=== PATIENT | male | born 1965 | race Caucasian/White ===

== ENCOUNTER 2021-10-24 08:28 | Inpatient (IN) | payer OTHER, SELFPAY ==
[2021-10-24] VITALS (9 sets, daily range): BP systolic 109–147; BP diastolic 56–81; PULSE 71–104; RESP 16–20; TEMP 36.3–36.8; O2SAT 95–100; BMI 24.0
--- NOTE | ~2021-10-24 | XR_ITS ---
EXAMINATION: XR CHEST CLINICAL INFORMATION: Shortness of breath and altered mental status COMPARISON: None TECHNIQUE: Frontal view of the chest was obtained. FINDINGS: The heart and pulmonary vessels appear normal. There is no evidence of CHF. No infiltrates or effusions are seen. Multiple musculoskeletal abnormalities are seen including plate and screw devices on third through fifth anterolateral right ribs. There may be chronic rib fractures on the left. Bilateral clavicular fractures are seen with nonunion on the left. Central sclerotic area in right humeral head may be an old infarct. XR/XR chest 1V IMPRESSION: No acute intrathoracic disease. Musculoskeletal findings as above.
--- NOTE | ~2021-10-24 | CT_ITS ---
EXAMINATION: CT HEAD WITHOUT CONTRAST (STROKE PROTOCOL) CLINICAL INFORMATION: Stroke protocol. Altered mental status COMPARISON: October 04, 2008 TECHNIQUE: Contiguous axial imaging was performed from the skull base to vertex without intravenous administration of contrast. This CT examination was performed using dose optimization techniques as appropriate, variously including the following: *Automated exposure control *Adjustment of mA and/or kV according to patient size (this includes techniques or standardized protocols for targeted exams where dose is matched to indication/reason for exam; i.e. extremities or head) *Use of iterative reconstruction technique DLP: 784 mGy-cm FINDINGS: There is a region of diminished density with some loss of garvin-white matter interface in the watershed region between the left parietal and occipital lobes. There also appears to be some petechial hemorrhage present with some mass effect effacing the adjacent sulci but with no intraventricular blood or midline structure shift. No effacement of ventricles identified. There was some prominence of the posterior horn of the left lateral ventricle on study of October 04, 2008. . . There is a nondisplaced left parietal skull fracture without adjacent scalp edema and therefore likely remote or chronic. No abnormal extra-axial fluid collection appreciated. There is no pneumocephalus or orbital emphysema. The visualized sinuses and middle ears and mastoid air cells show no significant mucosal thickening. There are no air-fluid levels. CT/CT head for stroke IMPRESSION: Findings consistent with evolving left posterior parietal and occipital infarct with mild mass effect and petechial hemorrhage being present. Nondisplaced remote fracture of the left parietal skull. This critical result was discussed with Dr. Hunt at 8:59 AM hours on October 24, 2021. It was ascertained that the content and urgency of the report was understood at the time of direct communication.
--- NOTE | 2021-10-24 08:33 | ECG_ITS ---
Test Reason : STROKE Blood Pressure : / mmHG Vent. Rate : 075 BPM Atrial Rate : 075 BPM P-R Int : 166 ms QRS Dur : 066 ms QT Int : 394 ms P-R-T Axes : 066 -43 -10 degrees QTc Int : 439 ms Artifact in tracing Normal sinus rhythm Left axis deviation Inferior infarct (cited on or before 04-OCT-2008) Abnormal ECG When compared with ECG of 04-OCT-2008 14:03, No significant change was found Referred By: Yessenia Hunt Electronically Signed By:ESMER BARRERA
[2021-10-24 08:39] LABS: Glucose, Whole Blood 150 mg/dL (60-115)
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
[2021-10-24] MEDS: levETIRAcetam in NaCl (iso-os) 500 MG/100 ML PIGGYBACK 400 MG IV (09:00)
[2021-10-24 09:14] LABS: MANUAL DIFF FLAG NO
[2021-10-24 09:16] LABS: Basophils Percent Auto 0.2 % (0-2); Eosinophils Percent Auto 0.1 % (0-4); Hematocrit 40.5 % (42.0-52.0); Hemoglobin 13.1 g/dl (14.0-18.0); Imm Gran Abs Auto 0.08 X10*3/uL (0.00-0.03); Imm Gran Pct Auto 0.4 % (0.0-0.4); Lymphocytes Absolute Auto 1.1 X10*3/uL (1.2-4.9); Lymphocytes Percent Auto 5.8 % (20-40); Mean Corpuscular HGB Conc 32.3 g/dl (31.0-36.0); Mean Corpuscular Hemoglobin 28.6 pg (27.0-33.0); Mean Corpuscular Volume 88.4 fL (80.0-98.0); Mean Platelet Volume 11.1 fL (9.4-12.4); Monocytes Absolute Auto 0.8 X10*3/uL (0.1-1.2); Monocytes Percent Auto 4.3 % (2-11); Neutrophils Absolute Auto 16.4 x10*3/uL (2.0-8.3); Neutrophils Percent Auto 89.2 % (45-73); Platelet Count 333 X10*3/uL (160-400); Red Blood Count 4.58 X10*6/uL (4.60-5.80); Red Cell Distribution Width 13.1 % (11.0-16.0); White Blood Count 18.4 X10*3/uL (4.8-10.8)
[2021-10-24 09:17] LABS: INTERNATIONAL NORM RATIO 0.9 (0.9-1.1); Prothrombin Time 10.4 SEC (9.9-13.0)
[2021-10-24 09:19] LABS: Ammonia 24 umol/L (13-55)
[2021-10-24 09:19] LABS: Lactic Acid 1.8 mmol/L (0.5-2.0)
[2021-10-24 09:20] LABS: Partial Thromboplastin Time 28.6 SEC (24.1-38.0)
[2021-10-24 09:26] LABS: VBG Base Excess -0.6 mmol/L; VBG HCO3 24 mmol/L (22-26); VBG pCO2 40 mmHg; VBG pH 7.38 (7.32-7.43); VBG pO2 36 mmHg
[2021-10-24 09:26] LABS: Venous Blood Gas Refer to POC result
[2021-10-24 09:29] LABS: Alanine Aminotransferase 13 U/L (0-40); Albumin Level 3.9 g/dL (3.5-5.0); Alkaline Phosphatase 62 U/L (39-117); Anion Gap 20 (12-20); Aspartate Amino Transferase 27 U/L (5-37); Bilirubin Direct 0.2 mg/dL (0.0-0.5); Bilirubin Total 0.5 mg/dL (0.0-1.0); Blood Urea Nitrogen 67 mg/dL (9-16); Carbon Dioxide 23 mmol/L (22-29); Chloride 98 mmol/L (96-108); Creatinine Clr Calc Pharmacy 22.4; Estimated Glomerular Filt Rate 19; Glucose Random 170 mg/dL (60-115); Lipase 23 U/L (8-78); Magnesium 2.1 mg/dL (1.6-2.6); Potassium 5.4 mmol/L (3.3-5.1); Sodium 136 mmol/L (135-145); Total Protein 7.2 g/dL (6.5-8.0)
[2021-10-24 09:50] LABS: Troponin-I High Sensitivity 6.8 ng/L (<3.5-35.0)
[2021-10-24 09:56] LABS: COVID-19 Test Negative (Negative)
--- NOTE | 2021-10-24 11:40 | PHA.MEDREC ---
Pharmacy Consult ? Medication Reconciliation Pharmacy has completed the medication reconciliation. List from care facility. No remarkable issues. Leonides QuinonesD
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
--- NOTE | 2021-10-24 15:29 | PC.NURSE ---
report called to overflow
[2021-10-24] MEDS: 0.9 % Sodium Chloride Flush 3 ML SYRINGE IVFLUSH ×2 (15:59→23:29)
--- NOTE | 2021-10-24 16:05 | PC.NURSE ---
pt alert, able to make needs known. LS clear, vss, satting well on room air, pt resting in bed with no signs of distress
[2021-10-24 16:06] LABS: Appearance Urine CLEAR; Color Urine YELLOW; Glucose Urine UA NEG (NEG); Leukocyte Esterase Urine NEG (NEG); Nitrite Urine NEG (NEG); Urine Blood NEG (NEG); Urine Ketones NEG (NEG); Urine Protein NEG (NEG-TRACE)
--- NOTE | 2021-10-24 16:18 | PC.NURSE ---
patient was change into hospital attire ,patient was assisted in using the urinal ,patient void 600 of clear yellow urine .
[2021-10-24] MEDS: Dextrose 50 % 25 GM/50 ML SYRINGE IVPUSH (17:12)
[2021-10-24 17:13] LABS: Glucose, Whole Blood 32 mg/dL (60-115)
[2021-10-24 17:33] LABS: Glucose, Whole Blood 161 mg/dL (60-115)
[2021-10-24 19:53] LABS: Glucose, Whole Blood 93 mg/dL (60-115)
[2021-10-24] MEDS: Dextrose 5 % and 0.45 % NaCl 1,000 ML 42 ML IVCONT (20:30)
[2021-10-24] MEDS: carvediloL 12.5 MG TABLET PO (20:33)
[2021-10-24] MEDS: hydrALAZINE HCl 25 MG TABLET PO (20:33)
[2021-10-24] MEDS: levETIRAcetam Oral Soln 500 MG/5 ML PO (20:33)
--- NOTE | 2021-10-24 21:37 | PC.NURSE ---
Pt seen asleep on bed but awaken easily with voice and was alert most of the time after, can only verbalized yes for every question, deneis any pain, noted with left arm weakness and right side face drooping, was able to tolerate applesauce, I called pharmacy regarding meds to be crushed and said
--- NOTE | 2021-10-24 21:40 | PC.NURSE ---
Pt seen on bed alseep at first and awaken easily with voice, mostly alert by then, can only verbalized 'yes' with every questions asked, unable to make needs known, noted with right face droop and left arm weakness, denies any pain, was able to tolerate apple sauce, I called pharmacy for meds needed to be crushed and said not to crush Myfortic and Prograf, rest of meds t oleratd with apple sauce, POC=93, pt still on NPO with event of POC=32 at 1700, Dr. Rivas was updated, IVF D50.45% NSS was started, to rechecked POC every 4 hr x2 later of the night, report called to [facility] to PAM Pandya, transport to room 474 at 2145
[2021-10-25] VITALS (7 sets, daily range): BP systolic 112–124; BP diastolic 53–62; PULSE 62–78; RESP 18–20; TEMP 36.3–36.8; O2SAT 96–100
[2021-10-25 07:28] LABS: Glucose, Whole Blood 63 mg/dL (60-115)
[2021-10-25 07:28] LABS: Cholesterol 131 mg/dL; HDL Cholesterol 47 mg/dL; LDL Cholesterol Calculated 73 mg/dl; Triglycerides 56 mg/dL
[2021-10-25] MEDS: Glucose Gel 15 GM GEL..GRAM. PO ×3 (07:55→20:21)
[2021-10-25] MEDS: Furosemide 40 MG TABLET PO (07:57)
[2021-10-25] MEDS: levETIRAcetam Oral Soln 500 MG/5 ML PO ×2 (07:57→20:27)
[2021-10-25] MEDS: hydrALAZINE HCl 25 MG TABLET PO ×3 (07:57→20:44)
[2021-10-25] MEDS: carvediloL 12.5 MG TABLET PO ×2 (07:57→20:44)
[2021-10-25] MEDS: Aspirin Enteric Coated 81 MG TABLET.DR PO (07:57)
[2021-10-25 08:19] LABS: Glucose, Whole Blood 90 mg/dL (60-115)
--- NOTE | 2021-10-25 09:04 | MHC.CM.PN ---
Patient appears confused; CM spoke with Son/Zachary at [phone]. Goal is to return to [facility] to complete STR that will then likely become LTC. CM has initiated and will follow for dc planning. Patient has received Covid vax X3.
[2021-10-25 11:10] LABS: Glucose, Whole Blood 211 mg/dL (60-115)
--- NOTE | 2021-10-25 11:36 | MHC.SL.SWA ---
Speech Pathologist Impression: Oral phase dysphagia; Severe expressive aphasia. Risk of Aspiration Due to: Neurological Condition Dysphasia Diet Status: Downgrade Liquid Consistency and Strategies for Safe Swallow: Liquid Intake Recommendation: Thin Liquid Intake Strategies: Small Sips Solid Food Consistency: Dietary Recommendations: Chopped/Advanced (NDD3) Additional Modifications to Solid Foods: No clinical signs of aspiration with PO trials. Slow, prolonged oral phase secondary to oral weakness. Recommend CHOPPED/ADVANCED solids (NDD3) and THIN liquids with pills WHOLE in PUREE. Patient is encouraged to feed himself, but does require 1:1 assistance for all PO intake. Aspiration precautions apply given hx stroke. Additionally, patient presents with severe expressive aphasia. Recommend continue speech therapy daily M-F during inpatient stay and at next level of care. BUCKET WASH OPERATOR will continue to follow. Oral Medication Intake: Whole with Puree Please contact the pharmacy regarding appropriate crushable or liquid drug formulations that are available whenever modified delivery is recommended. Compensatory Strategies and Precautions to be Taken for Safe Swallow: Sitting Upright (90 deg) Small Bites and Sips Alternate Liquids/Solids Rate of Ingestion Change Oral Check Avoid Specific Foods Supervision While Eating and Drinking for Safe Swallow: Total Assistance (1:1) Foods to Avoid: Tough, difficult to chew foods Swallowing Recommended Treatments: Compens. Strategy Educat. Recommendation for Speech: Outpatient Speech Therapy Inpatient Speech Therapy Speech Therapy through Rehab Facility Comment: Recommend ST for aphasia after d/c. Frequency/Duration: Daily M-F Key Person Clinican/Clinical Fellow: No Supervisory Statement: I have reviewed and agree with the student/clinical fellow's documentation: N/A Speech Language Pathologist: Reba Hollingsworth M.A., CCC-BUCKET WASH OPERATOR
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
[2021-10-25 12:04] LABS: Anion Gap 11 (12-20); Blood Urea Nitrogen 60 mg/dL (9-16); Calcium 9.5 mg/dL (8.4-10.2); Carbon Dioxide 27 mmol/L (22-29); Chloride 103 mmol/L (96-108); Creatinine Clr Calc Pharmacy 23.4; Estimated Glomerular Filt Rate 20; Glucose Random 69 mg/dL (60-115); Potassium 4.4 mmol/L (3.3-5.1); Sodium 137 mmol/L (135-145)
[2021-10-25] MEDS: Tacrolimus 1 MG CAPSULE 2 MG PO ×2 (12:28→20:28)
[2021-10-25] MEDS: Mycophenolate Sodium 180 MG TABLET.DR 540 MG PO ×2 (12:28→20:27)
[2021-10-25] MEDS: Insulin Glargine,Hum.rec.anlog 100 UNIT/ML 10 ML VIAL 10 UNIT SUBCUT (12:29)
[2021-10-25] MEDS: Insulin Lispro 100 UNIT/ML 3 ML VIAL SUBCUT ×2 (12:29→17:06)
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
[2021-10-25] MEDS: 0.9 % Sodium Chloride Flush 3 ML SYRINGE IVFLUSH (15:47)
[2021-10-25 16:03] LABS: Glucose, Whole Blood 181 mg/dL (60-115)
--- NOTE | 2021-10-25 16:09 | PM.CNNEP ---
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 Baseline creatinine of 2.4-2.8 mg/dL maintained on a regimen of immunosuppression that consists of mycophenolate and tacrolimus, history of diabetic nephropathy status post 2 kidney transplants in the past and a regimen that includes tacrolimus and mycophenolate complex history of multiple medical problems in the past including epidural subdural hemorrhage COPD/emphysema moderate KAREN not on CPAP CAD status post RCA PHUONG back in 2007 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 COVID positivity in June 2021 hypothyroidism hypertension hyperlipidemia hyperparathyroidism status post parathyroidectomy back in 2006 recent history of cerebrovascular accident he was recently discharged from [facility] on October 08 after hospitalization for cerebrovascular accident at the time he presented with a left upper extremity weakness CT imaging revealed bilateral perianal and left occipital stroke compared to previous imaging in 2018, subsequently he had an episode of seizure on September 25 treated with Keppra, at that time neurology on board was concerned for embolic source of infarcts however a TTE x2 and a MARLON did not reveal any cardiac embolic source, patient has some degree of encephalopathic changes his MRI was suboptimal showing multiple strokes, he was discharged home on antiseizure Keppra 500 mg twice a day baby aspirin and a statin, during the time of hospitalization he did have a mild JEWEL creatinine as high as 3.6 mg/dL on discharge from the hospital his creatinine was down to 2.8 mg/dL. His immunosuppression levels tacrolimus were erratic as high as 29 unclear if they were real, renal team at [facility] adjusted medications and recommended to continue tacrolimus 2 mg twice a day and mycophenolate 540 mg twice daily. He is now admitted to [facility] where he is being brought up to persistent symptoms of right upper extremity along with aphasia and right sided facial droop. Renal team has been consulted for management of renal transplant medications in the setting of previous 2 renal transplants. Review of Systems Review of Systems pt aphasic at the time of my interview [facility] Past Medical History Medical History (Updated 10/25/21 @ 16:16 by Meng Mckenna MD) Aphasia Cerebral infarct CKD (chronic kidney disease) Encephalopathy End stage renal disease HTN (hypertension) Hyperlipemia Hypothyroid Intracerebral hemorrhage Malignant neuroleptic syndrome Type 1 diabetes Surgical History Surgical History Kidney replaced by transplant Social History Social History Household Members: None Housing: Assisted Living Facility Do you presently have visiting nurse or other home services: No Unable to assess alcohol history related to: Unknown Patient Tobacco Use Status: Tobacco use Unknown Use of substances other than those prescribed or required for medical reasons: Unknown Currently Displaying Signs/Symptoms of Drug Intoxication Withdrawal: No Advance Directives: No Advance Directives Information Provided: No Recently lost weight without trying: Unsure Eating poorly because of decreased appetite: Yes Nutrition Risks: Difficulty chewing, Difficulty swallowing and Poor intake 0-25% >4 days Poor oral hygiene: No service: No Current occupational status: unemployed Meds Allergies Allergy/AdvReac Type Severity Reaction Status Date / Time No Known Allergies Allergy Mild NOT Unverified 03/15/20 16:49 APPLICABLE Active Medications: Current Medications Acetaminophen (Acetaminophen 325 Mg Tablet) 650 mg PO Q6H PRN PRN Reason: Pain, Mild (Pain Scale 1-3) Albuterol Sulfate (Albuterol Sulfate 90 Mcg 8 Gm Inhaler) 2 puff INHALE QID PRN PRN Reason: wheezing Aspirin (Aspirin Enteric Coated 81 Mg Tablet.Dr) 81 mg PO DAILY [facility] Last Admin: 10/25/21 07:57 Dose: 81 mg Documented by: Atorvastatin Calcium (Atorvastatin Calcium 40 Mg Tablet) 40 mg PO BEDTIME [place] Carvedilol (Carvedilol 12.5 Mg Tablet) 12.5 mg PO BID [facility]; Protocol Last Admin: 10/25/21 07:57 Dose: 12.5 mg Documented by: Dextrose (Dextrose 50 % 25 Gm/50 Ml Syringe) 25 gm IVPUSH Q15M PRN; Protocol PRN Reason: per Hypoglycemia Standing Ord. Furosemide (Furosemide 40 Mg Tablet) 40 mg PO DAILY [facility]; Protocol Last Admin: 10/25/21 07:57 Dose: 40 mg Documented by: Glucose (Glucose Gel 15 Gm Gel..Gram.) 15 gm PO Q15M PRN; Protocol PRN Reason: per Hypoglycemia Standing Ord. Last Admin: 10/25/21 07:55 Dose: 15 gm Documented by: Hydralazine HCl (Hydralazine Hcl 25 Mg Tablet) 25 mg PO TID [facility]; Protocol Last Admin: 10/25/21 15:46 Dose: 25 mg Documented by: Dextrose/Sodium Chloride (D51/2ns) 1,000 mls @ 42 mls/hr IVCONT .[id number] [facility] Last Admin: 10/24/21 20:30 Dose: 42 mls/hr Documented by: Insulin Glargine (Insulin Glargine,Hum.Rec.Anlog 100 Unit/Ml 10 Ml Vial) 10 unit SUBCUT DAILY [facility] Last Admin: 10/25/21 12:29 Dose: 10 unit Documented by: Insulin Human Lispro (Insulin Lispro 100 Unit/Ml 3 Ml Vial) 0 unit SUBCUT QIDACHS [facility]; Protocol Last Admin: 10/25/21 12:29 Dose: 4 unit Documented by: Levetiracetam (Levetiracetam Oral Soln 500 Mg/5 Ml) 500 mg PO BID [facility] Last Admin: 10/25/21 07:57 Dose: 500 mg Documented by: Levothyroxine Sodium (Levothyroxine Sodium 75 Mcg Tablet) 75 mcg PO DAILY@0600 [facility] Last Admin: 10/25/21 05:30 Dose: Not Given Documented by: Magnesium Hydroxide (Milk Of Magnesia 30 Ml Oral.Susp) 30 ml PO DAILY PRN PRN Reason: Constipation Melatonin (Melatonin 3 Mg Tablet) 6 mg PO BEDTIME PRN PRN Reason: Insomnia Mycophenolate Sodium (Mycophenolate Sodium 180 Mg Tablet.) 540 mg PO BID [facility] Last Admin: 10/25/21 12:28 Dose: 540 mg Documented by: Ondansetron HCl (Ondansetron Hcl 4 Mg/2 Ml Vial) 4 mg IVPUSH Q8H PRN PRN Reason: Nausea and Vomiting Pharmacy Consult (Consult Rx Perform Med Rec) 1 each MISCELLANE ONCE PRN PRN Reason: Consult order Sodium Chloride (0.9 % Sodium Chloride Flush 3 Ml Syringe) 3 ml IVFLUSH QSHIFT [facility] Last Admin: 10/25/21 15:47 Dose: 3 ml Documented by: Tacrolimus (Tacrolimus 1 Mg Capsule) 2 mg PO BEDTIME [facility] Last Admin: 10/24/21 21:38 Dose: Not Given Documented by: Tacrolimus (Tacrolimus 1 Mg Capsule) 2 mg PO DAILY [facility] Last Admin: 10/25/21 12:28 Dose: 2 mg Documented by: Home Medications Medication Instructions Recorded Confirmed Last Taken Type albuterol sulfate 90 mcg/actuation 2 puff PO QID PRN 10/24/21 10/24/21 Unknown History aerosol inhaler (ProAir HFA) aspirin 81 mg tablet,delayed 81 mg PO DAILY 10/24/21 10/24/21 Unknown History release atorvastatin 40 mg tablet 40 mg PO DAILY 10/24/21 10/24/21 Unknown History carvedilol 12.5 mg tablet 1 tab PO BID 10/24/21 10/24/21 Unknown History furosemide 40 mg tablet 40 mg PO DAILY 10/24/21 10/24/21 Unknown History hydralazine 25 mg tablet 1 tab PO TID 10/24/21 10/24/21 Unknown History insulin glargine 100 unit/mL 21 unit SUBCUT DAILY PRN 10/24/21 10/24/21 Unknown History subcutaneous solution (Lantus U-100 Insulin) insulin lispro 100 unit/mL 1 sliding scale dose SUBCUT 10/24/21 10/24/21 Unknown History subcutaneous solution USEASDIRECTD levetiracetam 500 mg tablet 500 mg PO BID 10/24/21 10/24/21 Unknown History levothyroxine 75 mcg tablet 1 tab PO DAILY 10/24/21 10/24/21 Unknown History mycophenolate sodium 180 mg 3 tab PO Q12H 10/24/21 10/24/21 Unknown History tablet,delayed release tacrolimus 1 mg capsule, 2 mg PO BEDTIME 10/24/21 10/24/21 Unknown History immediate-release tacrolimus 1 mg capsule, 2 mg PO DAILY 10/24/21 10/24/21 Unknown History immediate-release Physical Exam Vital Signs: Last Vital Signs Temp 97.3 F 10/25/21 15:04 Pulse 78 10/25/21 15:04 Resp 20 10/25/21 15:04 BP 116/53 L 10/25/21 15:04 Pulse Ox 98 10/25/21 15:04 BMI result Body Mass Index 24.0 Oral moist mucosa, neck supple, lungs clear to auscultation, S1-S2 no S3 no S4 no murmurs or rubs abdomen soft nontender scars from previous kidney transplantation noted, positive bowel sounds extremities showed no ankle edema neurologic semination positive for aphasia right hand systems trainer is strong, no evidence of facial droop. Results Lab Results Result Diagrams: 10/24/21 08:58 10/25/21 06:36 Lab results: Chemistry 10/24/21 10/25/21 08:58 06:36 Sodium 136 137 Potassium 5.4 H 4.4 Carbon Dioxide 23 27 BUN 67 H 60 H Creatinine 3.32 H 3.17 H Calcium 10.0 9.5 Hematology 10/24/21 08:58 WBC 18.4 H Hgb 13.1 L Plt Count 333 Urinalysis 10/24/21 15:55 Urine Color YELLOW Urine Appearance CLEAR Urine pH 6.0 Ur Specific [place] 1.020 Urine Protein NEG Urine Glucose (UA) NEG Urine Ketones NEG Urine Blood NEG Urine Nitrite NEG Ur Leukocyte Esterase NEG Assessment and Plan (1) CKD (chronic kidney disease): Status: Acute (2) HTN (hypertension): Status: Acute (3) Renal transplant disorder: Status: Acute (4) Immunosuppressed status: Status: Acute Plan Patient known to have ESRD secondary to diabetic nephropathy status post 2 kidney transplants in the past and a regimen that includes tacrolimus and mycophenolate complex history of multiple medical problems in the past including epidural subdural hemorrhage COPD/emphysema moderate KAREN not on CPAP CAD status post RCA PHUONG back in 2007 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 COVID positivity in June 2021 hypothyroidism hypertension hyperlipidemia hyperparathyroidism status post parathyroidectomy back in 2006 recent history of cerebrovascular accident CT scan evident for left parietal occipital infarcts as well as a left superior parietal infarct at the time he was seen at [facility] was not a candidate for tPA, he had a clinical course complicated by seizures requiring antiseizure medication, cardioembolic source of CVA work-up with n negative cardiac evaluation. Acute on chronic CKD creatinine as high as 3.3 mg/dL as of recent discharge from the hospital at [facility] his creatinine was down to 2.8 mg/dL, I suspect JEWEL is the result of prerenal azotemia in the setting of poor oral intake I would wonder if tacrolimus may be part of the culprit clearly will require diligent a.m. trough tacrolimus levels to avoid any degree of nephrotoxicity, so far his blood cultures have been negative I doubt he has any evidence of septic ATN, I doubt obstructive uropathy or atheroembolic disease to his transplanted kidney, continue with normal saline or lactated Ringer's at 100 mill per hour for 2 more liters. Immunosuppression status daily tacrolimus levels in a.m. at 6 AM prior to administration of medication. Goal to keep tacrolimus level at 5?8. Continue with mycophenolate at 140 mg twice a day. Hypertensive disorder continue with his outpatient regimen of carvedilol 12.5 mg twice a day and hydralazine 25 mg twice daily closely monitor blood pressure if evidence of uncontrolled accelerated hypertension use IV hydralazine 10 mg every 4 as needed for systolic blood pressure 160 or above. Regarding aphasia consider neurology consult if possible consider returning to [facility] where he was recently discharged on October 08 to have neurology continue to manage. History of recent seizure disorder follow-up Keppra levels. Borderline hyperkalemia monitor closely if K5.5 or above treat with Lokelma 10 g and strict low potassium diet. Assess swallowing. From the CKD renal transplant immunosuppression perspective we will continue to follow. Thank you for allowing us to be part of his care. Procedures Date of Service Date of Service: 10/25/21
[2021-10-25 19:50] LABS: Glucose, Whole Blood 52 mg/dL (60-115)
[2021-10-25 20:27] LABS: Glucose, Whole Blood 62 mg/dL (60-115)
[2021-10-25] MEDS: Atorvastatin Calcium 40 MG TABLET PO (20:28)
[2021-10-25] MEDS: Dextrose 5 % and 0.45 % NaCl 1,000 ML 42 ML IVCONT (20:37)
[2021-10-25 20:53] LABS: Glucose, Whole Blood 131 mg/dL (60-115)
[2021-10-25 22:27] LABS: Glucose, Whole Blood 328 mg/dL (60-115)
[2021-10-26 03:49] VITALS: BP 113/54; PULSE 68; RESP 18; TEMP 36.2; O2SAT 96
[2021-10-26 04:17] LABS: Glucose, Whole Blood 401 mg/dL (60-115)
[2021-10-26] MEDS: Insulin Lispro 100 UNIT/ML 3 ML VIAL SUBCUT ×4 (04:41→21:10)
--- NOTE | 2021-10-26 04:44 | PC.NURSE ---
PER RN REPORT AT 2300, INFORMED TO CHECK PATIENTS BLOOD SUGAR POC IN FEW HOURS AND MONITOR BLOOD SUGAR WAS 52, 62 AT 1945. PT WAS TREATED WITH GLUCOSE GEL X 2 AND JUICE PER 3-11 RN REPORT AND NO ISS COVER. POC INCREASED TO 131, THEN 328. ORDERS WERE PER HOSPITALIST. POC RESULTS AT 0400 CAME BACK AT 401, HOSPITALIST ON DUTY NOTIFIED AND PER TIGER TEXT HE SAID TO COVER PER THE PATIENTS ISS NOW AND STOP HIS IV OF D5 1/2NS AT 42 ML/HR. PER SCALE PT WAS GIVEN 10 UNITS OF HUMALOG SC INSULIN AT 0445 AND WILL RE CHECK IN FEW HOURS.
[2021-10-26] MEDS: Levothyroxine Sodium 75 MCG TABLET PO (05:42)
[2021-10-26 06:35] LABS: Glucose, Whole Blood 155 mg/dL (60-115)
--- NOTE | 2021-10-26 06:35 | PC.NURSE ---
BLOOD SUGAR POC RECHECKED PER HOSPITALIST FROM PREVIOUS NOTE AND ORDERS, RESULTS 155, HOSPITALIAST NOTIFIED VIA TIGER TEXT OF RESULTS. RE ADDRESSED HIS IVF'S AND MD STATED CONTINUE TO HOLD THEM FOR NOW.
[2021-10-26] MEDS: Glucose Gel 15 GM GEL..GRAM. PO ×2 (07:59→08:37)
[2021-10-26 08:00] VITALS: BP 104/48; PULSE 65; RESP 18; TEMP 36.7; O2SAT 97
[2021-10-26 08:11] LABS: Glucose, Whole Blood 47 mg/dL (60-115)
[2021-10-26 08:25] LABS: Glucose, Whole Blood 60 mg/dL (60-115)
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
[2021-10-26 09:02] LABS: Glucose, Whole Blood 143 mg/dL (60-115)
[2021-10-26 09:36] LABS: Hematocrit 34.6 % (42.0-52.0); Hemoglobin 11.1 g/dl (14.0-18.0); Mean Corpuscular HGB Conc 32.1 g/dl (31.0-36.0); Mean Corpuscular Hemoglobin 28.7 pg (27.0-33.0); Mean Corpuscular Volume 89.4 fL (80.0-98.0); Mean Platelet Volume 11.2 fL (9.4-12.4); Platelet Count 264 X10*3/uL (160-400); Red Blood Count 3.87 X10*6/uL (4.60-5.80); White Blood Count 7.3 X10*3/uL (4.8-10.8)
[2021-10-26 10:01] LABS: Anion Gap 19 (12-20); Blood Urea Nitrogen 60 mg/dL (9-16); Calcium 9.3 mg/dL (8.4-10.2); Carbon Dioxide 22 mmol/L (22-29); Chloride 99 mmol/L (96-108); Creatinine Clr Calc Pharmacy 23.4; Estimated Glomerular Filt Rate 20; Glucose Random 117 mg/dL (60-115); Potassium 4.6 mmol/L (3.3-5.1); Sodium 135 mmol/L (135-145)
[2021-10-26] MEDS: Aspirin Enteric Coated 81 MG TABLET.DR PO (10:10)
[2021-10-26] MEDS: Furosemide 40 MG TABLET PO (10:10)
[2021-10-26] MEDS: Mycophenolate Sodium 180 MG TABLET.DR 540 MG PO ×2 (10:11→21:09)
[2021-10-26] MEDS: hydrALAZINE HCl 25 MG TABLET PO ×3 (10:11→21:09)
[2021-10-26] MEDS: carvediloL 12.5 MG TABLET PO ×2 (10:11→21:09)
[2021-10-26] MEDS: levETIRAcetam Oral Soln 500 MG/5 ML PO ×2 (10:15→21:10)
[2021-10-26] MEDS: 0.9 % Sodium Chloride Flush 3 ML SYRINGE IVFLUSH ×3 (10:18→21:10)
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
[2021-10-26 11:10] LABS: Glucose, Whole Blood 220 mg/dL (60-115)
[2021-10-26 11:27] VITALS: BP 139/73; PULSE 69; RESP 18; TEMP 36.7; O2SAT 100
[2021-10-26] MEDS: Sertraline HCL 25 MG TABLET PO (12:16)
[2021-10-26 13:31] LABS: Tacrolimus Prograf 4.7 mcg/L
--- NOTE | 2021-10-26 14:23 | PC.NURSE ---
0800 BG was 47. Glucose gel administered, BG went up to 60. Glucose gel administered, BG went to 143. MD hernandez.
[2021-10-26 15:35] VITALS: BP 127/67; PULSE 63; RESP 17; TEMP 36.6; O2SAT 96
[2021-10-26] MEDS: Heparin Sodium,Porcine 5,000 UNIT/ML VIAL 5000 UNIT SUBCUT ×2 (15:38→23:48)
[2021-10-26 16:30] LABS: Glucose, Whole Blood 201 mg/dL (60-115)
--- NOTE | 2021-10-26 16:35 | PM.EVENT ---
Event Note Date of Service: 10/26/21 Event Note: Discussed risk and benefits of anticoagulation as recommended by Neurology with patient son and he agree to initiate coumadin.. risks discussed include bleeding risk, including but not limitted to intracranial, GI. Will start coumadin Also Tacrolimus level reported as 5.8 (desired range of 5 to 8) and therofore will continue Tacrolimus
[2021-10-26 17:40] LABS: INTERNATIONAL NORM RATIO 0.9 (0.9-1.1); Prothrombin Time 10.6 SEC (9.9-13.0)
[2021-10-26] MEDS: Warfarin Sodium 5 MG TABLET PO (18:18)
[2021-10-26 18:50] VITALS: BP 107/54; PULSE 66; RESP 18; TEMP 36.4; O2SAT 97
[2021-10-26 19:53] LABS: Glucose, Whole Blood 236 mg/dL (60-115)
[2021-10-26] MEDS: Atorvastatin Calcium 40 MG TABLET PO (21:09)
[2021-10-26] MEDS: Tacrolimus 1 MG CAPSULE 2 MG PO (21:10)
[2021-10-26 23:26] VITALS: BP 110/50; PULSE 69; RESP 18; TEMP 36.5; O2SAT 93
[2021-10-27 00:37] LABS: Appearance Urine CLEAR; Color Urine YELLOW; Glucose Urine UA 100 MG/DL (NEG); Leukocyte Esterase Urine NEG (NEG); Nitrite Urine NEG (NEG); Urine Blood NEG (NEG); Urine Ketones NEG (NEG); Urine Protein NEG (NEG-TRACE)
[2021-10-27 00:50] LABS: Amorphous Sediment Urine 1+ /LPF; Mucus Urine TRACE /LPF; RBC Urine 0 /HPF (0); Squamous Epithelial Cell Urine 1+ /LPF; WBC Urine 0 /HPF (0-4)
[2021-10-27 03:11] VITALS: BP 138/70; PULSE 74; RESP 18; TEMP 36.7; O2SAT 99
[2021-10-27] MEDS: Levothyroxine Sodium 75 MCG TABLET PO (06:08)
[2021-10-27 07:05] LABS: Tacrolimus Prograf 5.8
[2021-10-27 07:28] LABS: Prothrombin Time 11.4 SEC (9.9-13.0)
[2021-10-27 07:36] VITALS: BP 150/65; PULSE 72; RESP 16; TEMP 36.7; O2SAT 96
[2021-10-27] MEDS: Insulin Lispro 100 UNIT/ML 3 ML VIAL SUBCUT ×3 (07:51→20:06)
[2021-10-27] MEDS: Insulin Glargine,Hum.rec.anlog 100 UNIT/ML 10 ML VIAL 10 UNIT SUBCUT (07:52)
[2021-10-27 08:16] LABS: Glucose, Whole Blood 349 mg/dL (60-115)
[2021-10-27] MEDS: Mycophenolate Sodium 180 MG TABLET.DR 540 MG PO ×2 (10:35→20:06)
[2021-10-27] MEDS: Tacrolimus 1 MG CAPSULE 2 MG PO ×2 (10:35→20:06)
[2021-10-27] MEDS: Sertraline HCL 25 MG TABLET PO (10:36)
[2021-10-27] MEDS: carvediloL 12.5 MG TABLET PO ×2 (10:36→20:06)
[2021-10-27] MEDS: Furosemide 40 MG TABLET PO (10:36)
[2021-10-27] MEDS: Heparin Sodium,Porcine 5,000 UNIT/ML VIAL 5000 UNIT SUBCUT ×2 (10:37→23:58)
[2021-10-27] MEDS: Aspirin Enteric Coated 81 MG TABLET.DR PO (10:37)
[2021-10-27] MEDS: hydrALAZINE HCl 25 MG TABLET PO ×3 (10:37→20:06)
[2021-10-27] MEDS: levETIRAcetam Oral Soln 500 MG/5 ML PO ×2 (10:37→20:06)
[2021-10-27] MEDS: 0.9 % Sodium Chloride Flush 3 ML SYRINGE IVFLUSH ×3 (10:42→20:10)
[2021-10-27 11:06] VITALS: BP 116/65; PULSE 73; RESP 17; TEMP 37.2; O2SAT 96
[2021-10-27 11:28] LABS: Glucose, Whole Blood 320 mg/dL (60-115)
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
[2021-10-27 15:33] VITALS: BP 118/59; PULSE 69; RESP 17; TEMP 36.6; O2SAT 98
[2021-10-27 15:35] LABS: COVID-19 Test Negative (Negative)
[2021-10-27 16:26] LABS: Glucose, Whole Blood 112 mg/dL (60-115)
[2021-10-27] MEDS: Warfarin Sodium 5 MG TABLET PO (18:40)
[2021-10-27 19:08] VITALS: BP 130/82; PULSE 73; RESP 18; TEMP 36.4; O2SAT 97
[2021-10-27] MEDS: Atorvastatin Calcium 40 MG TABLET PO (20:06)
[2021-10-27 20:30] LABS: Glucose, Whole Blood 373 mg/dL (60-115)
[2021-10-27 23:27] VITALS: BP 114/58; PULSE 70; RESP 16; TEMP 36.4; O2SAT 97
[2021-10-28] VITALS (7 sets, daily range): BP systolic 111–151; BP diastolic 52–74; PULSE 66–74; RESP 16–20; TEMP 36.3–37; O2SAT 96–98
[2021-10-28] MEDS: Levothyroxine Sodium 75 MCG TABLET PO (05:45)
[2021-10-28 07:03] LABS: INTERNATIONAL NORM RATIO 1.4 (0.9-1.1); Prothrombin Time 15.5 SEC (9.9-13.0)
[2021-10-28 07:58] LABS: Glucose, Whole Blood 334 mg/dL (60-115)
[2021-10-28 10:23] LABS: Glucose, Whole Blood 475 mg/dL (60-115)
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
[2021-10-28] MEDS: Insulin Lispro 100 UNIT/ML 3 ML VIAL SUBCUT ×3 (11:24→17:14)
[2021-10-28] MEDS: Insulin Glargine,Hum.rec.anlog 100 UNIT/ML 10 ML VIAL 10 UNIT SUBCUT (11:25)
[2021-10-28] MEDS: Heparin Sodium,Porcine 5,000 UNIT/ML VIAL 5000 UNIT SUBCUT ×2 (11:26→22:27)
[2021-10-28] MEDS: Aspirin Enteric Coated 81 MG TABLET.DR PO (11:30)
[2021-10-28] MEDS: Sertraline HCL 25 MG TABLET PO (11:30)
[2021-10-28] MEDS: Mycophenolate Sodium 180 MG TABLET.DR 540 MG PO ×2 (11:30→22:27)
[2021-10-28] MEDS: carvediloL 12.5 MG TABLET PO ×2 (11:31→20:33)
[2021-10-28] MEDS: Tacrolimus 1 MG CAPSULE 2 MG PO ×2 (11:32→20:33)
[2021-10-28] MEDS: Furosemide 40 MG TABLET PO (11:33)
[2021-10-28] MEDS: 0.9 % Sodium Chloride Flush 3 ML SYRINGE IVFLUSH ×2 (11:33→17:14)
[2021-10-28] MEDS: levETIRAcetam Oral Soln 500 MG/5 ML PO ×2 (11:33→20:32)
[2021-10-28 11:48] LABS: Glucose, Whole Blood 513 mg/dL (60-115)
[2021-10-28] MEDS: hydrALAZINE HCl 25 MG TABLET PO ×3 (11:50→20:32)
[2021-10-28 14:29] LABS: Glucose, Whole Blood 416 mg/dL (60-115)
--- NOTE | 2021-10-28 15:36 | MHC.CM.PN ---
Male 55 DX Embolic strokes. He is discharged to [facility] pending insurance authorization. He will transport via S.
--- NOTE | 2021-10-28 16:00 | MHC.SLORD ---
Speech Language Pathology Order Status: Per chart review, patient is d/c pending insurance authorization. If patient is still here tomorrow, plan to see for speech therapy at bedside. Recommend speech therapy at next level of care.
[2021-10-28 16:30] LABS: Glucose, Whole Blood 245 mg/dL (60-115)
[2021-10-28 16:47] LABS: Anion Gap 16 (12-20); Blood Urea Nitrogen 65 mg/dL (9-16); Calcium 9.3 mg/dL (8.4-10.2); Carbon Dioxide 23 mmol/L (22-29); Chloride 96 mmol/L (96-108); Creatinine Clr Calc Pharmacy 25.4; Estimated Glomerular Filt Rate 22; Glucose Random 272 mg/dL (60-115); Potassium 4.2 mmol/L (3.3-5.1); Sodium 131 mmol/L (135-145)
[2021-10-28] MEDS: Warfarin Sodium 5 MG TABLET PO (17:14)
[2021-10-28 19:52] LABS: Glucose, Whole Blood 108 mg/dL (60-115)
[2021-10-28] MEDS: Atorvastatin Calcium 40 MG TABLET PO (20:33)
[2021-10-29] MEDS: 0.9 % Sodium Chloride Flush 3 ML SYRINGE IVFLUSH ×2 (00:18→09:37)
[2021-10-29 03:50] VITALS: BP 111/53; PULSE 69; RESP 17; TEMP 36.2; O2SAT 95
[2021-10-29] MEDS: Levothyroxine Sodium 75 MCG TABLET PO (05:51)
[2021-10-29 06:51] LABS: Prothrombin Time 22.6 SEC (9.9-13.0)
[2021-10-29 07:39] VITALS: BP 113/60; PULSE 68; RESP 20; TEMP 36.1; O2SAT 98
[2021-10-29 08:16] LABS: Glucose, Whole Blood 204 mg/dL (60-115)
[2021-10-29] MEDS: Insulin Lispro 100 UNIT/ML 3 ML VIAL SUBCUT ×2 (09:36→11:47)
[2021-10-29] MEDS: levETIRAcetam Oral Soln 500 MG/5 ML PO (09:36)
[2021-10-29] MEDS: Insulin Glargine,Hum.rec.anlog 100 UNIT/ML 10 ML VIAL 10 UNIT SUBCUT (09:37)
[2021-10-29] MEDS: Mycophenolate Sodium 180 MG TABLET.DR 540 MG PO (09:38)
[2021-10-29] MEDS: carvediloL 12.5 MG TABLET PO (09:39)
[2021-10-29] MEDS: Sertraline HCL 25 MG TABLET PO (09:39)
[2021-10-29] MEDS: Aspirin Enteric Coated 81 MG TABLET.DR PO (09:39)
[2021-10-29] MEDS: Furosemide 40 MG TABLET PO (09:39)
[2021-10-29] MEDS: hydrALAZINE HCl 25 MG TABLET PO (09:40)
[2021-10-29] MEDS: Tacrolimus 1 MG CAPSULE 2 MG PO (09:41)
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
[2021-10-29 11:18] VITALS: BP 95/58; PULSE 78; RESP 17; TEMP 37.3; O2SAT 97
[2021-10-29 11:26] LABS: Glucose, Whole Blood 335 mg/dL (60-115)
--- NOTE | 2021-10-29 15:16 | MHC.SLORD ---
Speech Language Pathology Order Status: Attempted to see Pt for speech/language screening. Pt told me to get out. Gave explanation of what I was there for, Pt again asked me to leave. Not cooperative or appropriate at this time for evaluation. Will re-attempt if Pt is not D/C'd.
[2021-10-29 15:39] VITALS: BP 95/59; PULSE 63; RESP 16; TEMP 36.7; O2SAT 97
[2021-10-29 16:12] LABS: Glucose, Whole Blood 137 mg/dL (60-115)
[2021-10-29] MEDS: Warfarin Sodium 5 MG TABLET PO (18:39)
== END 2021-10-29 19:00 | disposition skilled nursing facility (03) | DRG 45 ==
LOC: HO.ED 09:19 → HO.EDOVER 13:26 → HO.IMC 19:25
PROVIDERS: Admitting Provider Internal Medicine; Emergency Provider Emergency Medicine; PCP Internal Medicine; Visit Provider Hospitalist
DX: I63.9 Cerebral infarction, unspecified (principal); N17.9 Acute kidney failure, unspecified; T86.12 Kidney transplant failure; D84.821 Immunodeficiency due to drugs; R47.01 Aphasia; E10.22 Type 1 diabetes mellitus with diabetic chronic kidney disease; E03.9 Hypothyroidism, unspecified; R29.722 NIHSS score 22; I12.9 Hypertensive chronic kidney disease with stage 1 through stage 4 chronic kidney disease, or unspecified chronic kidney disease; N18.30 Chronic kidney disease, stage 3 unspecified; E87.5 Hyperkalemia; G47.33 Obstructive sleep apnea (adult) (pediatric); R56.9 Unspecified convulsions; I25.10 Atherosclerotic heart disease of native coronary artery without angina pectoris; Z20.822 Contact with and (suspected) exposure to COVID-19; Z94.0 Kidney transplant status; Z79.01 Long term (current) use of anticoagulants; Z79.4 Long term (current) use of insulin; Z79.82 Long term (current) use of aspirin; Z79.890 Hormone replacement therapy; Z79.899 Other long term (current) drug therapy
CPT/HCPCS: 36415; 70450; 71045; 80048; 80061; 80076; 80197; 81001; 81003; 82140; 82803; 82947; 83605; 83690; 83735; 84484; 85025; 85027; 85610; 85730; 87040; 87635; 92610; 93005; 96374; 97116; 97163; 97167; 97535; 99285; 99291; J1953

== ENCOUNTER 2021-11-11 08:22 | Emergency (ER) | payer OTHER, SELFPAY ==
--- NOTE | ~2021-11-11 | XR_ITS ---
EXAMINATION: XR CHEST CLINICAL INFORMATION: Weakness COMPARISON: Chest x-ray dated 10/24/2021. Right shoulder radiographs dated 10/04/2008. TECHNIQUE: Frontal view of the chest was obtained. FINDINGS: Normal symmetric lung volumes. No parenchymal consolidation. No pleural effusion. No pneumothorax. Cardiomediastinal silhouette and pulmonary vascularity are within normal limits. Aorta is chronic. No acute osseous abnormalities. Plate and screw fixation of the right anterolateral fourth through sixth ribs are demonstrated. 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 Sclerotic density in the right humeral head is new 2008, possibly a bone infarct. Old fracture of the right scapular body with chronic deformity. XR/XR chest 1V IMPRESSION: No acute findings.
--- NOTE | 2021-11-11 08:31 | ED.GENADULT ---
HPI - General Adult General Chief complaint: General Medical Stated complaint: LOW BS FROM SNF Time Seen by Provider: 11/11/21 08:31 Source: patient and steward/stewardess lounge Mode of arrival: EMS Limitations: other (poor historian ) History of Present Illness HPI narrative: found altered BS 41 - patient is a poor historian from prior strokes complaint: hypoglycemia Onset (ago): minute(s) Severity: moderate Relieving factors: none Exacerbating factors: none and other (given glucose by EMS) Associated symptoms: denies other symptoms Treatments prior to arrival: other (glucose) Related Data Home Medications Medication Instructions Recorded Confirmed albuterol sulfate 90 mcg/actuation 2 puff PO QID PRN 10/24/21 10/24/21 aerosol inhaler (ProAir HFA) aspirin 81 mg tablet,delayed 81 mg PO DAILY 10/24/21 10/24/21 release atorvastatin 40 mg tablet 40 mg PO DAILY 10/24/21 10/24/21 carvedilol 12.5 mg tablet 1 tab PO BID 10/24/21 10/24/21 furosemide 40 mg tablet 40 mg PO DAILY 10/24/21 10/24/21 hydralazine 25 mg tablet 1 tab PO TID 10/24/21 10/24/21 insulin glargine 100 unit/mL 21 unit SUBCUT DAILY PRN 10/24/21 10/24/21 subcutaneous solution (Lantus U-100 Insulin) insulin lispro 100 unit/mL 1 sliding scale dose SUBCUT 10/24/21 10/24/21 subcutaneous solution USEASDIRECTD levetiracetam 500 mg tablet 500 mg PO BID 10/24/21 10/24/21 levothyroxine 75 mcg tablet 1 tab PO DAILY 10/24/21 10/24/21 mycophenolate sodium 180 mg 3 tab PO Q12H 10/24/21 10/24/21 tablet,delayed release tacrolimus 1 mg capsule, 2 mg PO BEDTIME 10/24/21 10/24/21 immediate-release tacrolimus 1 mg capsule, 2 mg PO DAILY 10/24/21 10/24/21 immediate-release Previous Rx's Medication Instructions Recorded warfarin 5 mg tablet 5 mg PO DAILY@1700 #30 tab 10/27/21 Allergies Allergy/AdvReac Type Severity Reaction Status Date / Time Unable to Assess Allergy Verified 11/11/21 09:24 Review of Systems Review of Systems: ROS unable to be obtained due to expressive aphasia at baseline and poor historian [facility] Past Medical History Attestation statement: The following information was validated with the patient. Medical History Acute CVA (cerebrovascular accident) Aphasia Cerebral infarct CKD (chronic kidney disease) Depression Encephalopathy End stage renal disease HTN (hypertension) Hyperlipemia Hypothyroid Immunosuppressed status Intracerebral hemorrhage Malignant neuroleptic syndrome Renal transplant disorder Type 1 diabetes Wernicke's fluent aphasia Surgical History Kidney replaced by transplant Social History Social History Household Members: None Housing: Assisted Living Facility Do you presently have visiting nurse or other home services: No Unable to assess alcohol history related to: Unknown Patient Tobacco Use Status: Tobacco use Unknown Advance Directives: No Advance Directives Information Provided: No service: No Current occupational status: unemployed Physical Exam ED Vital Signs: Vital Signs - 24 hr 11/11/21 08:49 Pulse Rate 70 Respiratory Rate 18 Blood Pressure 115/82 Pulse Oximetry 99 BMI result Body Mass Index 25.5 Appearance: Alert. Oriented X1. No acute distress. Eyes: Pupils equal, round and reactive to light. ENT: Pharynx normal. Neck: Normal inspection. Neck supple. CVS: Normal heart rate and rhythm. Pulses normal. Respiratory: No respiratory distress. Breath sounds normal. Abdomen: Soft and nontender. Skin: Skin warm and dry. Normal skin color. Normal skin turgor. Extremities: No lower extremity edema. No calf ttp Neuro: Oriented X 1. Smiling cannot participate in exam knows he's at [employer], drank juice Course Course Course Narrative: no fevers, no pneumonia or UTI, no WBC count CKD at baseline blood sugar stable stable for DC Medical Decision Making MDM Narrative Medical decision making narrative: 55 yo male with hx of asthma, DM, multiple strokes with expressive aphasia and gait issues comes in with c/o hypoglycemia this AM - he appears at baseline no obvious source of infection will feed patient obtain labs, UA and CXR for infection and observe. He is residing at SNF where his sugars can be checked. Lab Data Result diagrams: 11/11/21 08:56 05/16/22 08:57 Labs: Lab Results 11/11/21 11/11/21 11/11/21 Range/Units 08:32 08:54 08:54 WBC (4.8-10.8) X10*3/uL RBC (4.60-5.80) X10*6/uL Hgb (14.0-18.0) g/dl Hct (42.0-52.0) % MCV (80.0-98.0) fL MCH (27.0-33.0) pg MCHC (31.0-36.0) g/dl RDW (11.0-16.0) % Plt Count (160-400) X10*3/uL MPV (9.4-12.4) fL Immature Gran % (Auto) (0.0-0.4) % Neut % (Auto) (45-73) % Lymph % (Auto) (20-40) % Branch % (Auto) (2-11) % Eos % (Auto) (0-4) % Baso % (Auto) (0-2) % Lymph # (Auto) (1.2-4.9) X10*3/uL Branch # (Auto) (0.1-1.2) X10*3/uL Eos # (Auto) (0.0-0.4) X10*3/uL Baso # (Auto) (0.0-0.2) X10*3/uL Abs Immat Gran (auto) (0.00-0.03) X10*3/uL Absolute Neuts (auto) (2.0-8.3) x10*3/uL Absolute Nucleated RBC (0.0-0.012) X10*3/uL Nucleated RBC % (auto) (0.0-0.2) /100WBC PT (9.9-13.0) SEC INR (0.9-1.1) Sodium (135-145) mmol/L Potassium (3.3-5.1) mmol/L Chloride (96-108) mmol/L Carbon Dioxide (22-29) mmol/L Anion Gap (12-20) BUN (9-16) mg/dL Creatinine (0.5-1.4) mg/dL Estim Creat Clear Calc Estimated GFR POC Glucose 85 (60-115) mg/dL Random Glucose (60-115) mg/dL Calcium (8.4-10.2) mg/dL Urine Color STRAW Urine Appearance CLEAR Urine pH 6.0 (5.0-8.0) Ur Specific [place] 1.015 (1.005-1.025) Urine Protein NEG (NEG-TRACE) MG/DL Urine Glucose (UA) NEG (NEG) MG/DL Urine Ketones NEG (NEG) MG/DL Urine Blood NEG (NEG) Urine Nitrite NEG (NEG) Ur Leukocyte Esterase NEG (NEG) COVID-19 (ZACK) Negative (Negative) COVID-19 Clin Com See Note 11/11/21 11/11/21 11/11/21 Range/Units 08:56 08:57 09:48 WBC 7.6 (4.8-10.8) X10*3/uL RBC 4.13 L (4.60-5.80) X10*6/uL Hgb 11.8 L (14.0-18.0) g/dl Hct 36.5 L (42.0-52.0) % MCV 88.4 (80.0-98.0) fL MCH 28.6 (27.0-33.0) pg MCHC 32.3 (31.0-36.0) g/dl RDW 13.2 (11.0-16.0) % Plt Count 331 D (160-400) X10*3/uL MPV 9.9 (9.4-12.4) fL Immature Gran % (Auto) 0.3 (0.0-0.4) % Neut % (Auto) 81.3 H (45-73) % Lymph % (Auto) 12.7 L (20-40) % Branch % (Auto) 5.2 (2-11) % Eos % (Auto) 0.4 (0-4) % Baso % (Auto) 0.1 (0-2) % Lymph # (Auto) 1.0 L (1.2-4.9) X10*3/uL Branch # (Auto) 0.4 (0.1-1.2) X10*3/uL Eos # (Auto) 0.0 (0.0-0.4) X10*3/uL Baso # (Auto) 0.0 (0.0-0.2) X10*3/uL Abs Immat Gran (auto) 0.02 (0.00-0.03) X10*3/uL Absolute Neuts (auto) 6.2 (2.0-8.3) x10*3/uL Absolute Nucleated RBC 0.000 (0.0-0.012) X10*3/uL Nucleated RBC % (auto) 0.0 (0.0-0.2) /100WBC PT 17.9 H (9.9-13.0) SEC INR 1.6 H (0.9-1.1) Sodium 138 (135-145) mmol/L Potassium 4.9 (3.3-5.1) mmol/L Chloride 103 (96-108) mmol/L Carbon Dioxide 26 (22-29) mmol/L Anion Gap 14 (12-20) BUN 55 H (9-16) mg/dL Creatinine 2.63 H (0.5-1.4) mg/dL Estim Creat Clear Calc 29.3 Estimated GFR 25 POC Glucose (60-115) mg/dL Random Glucose 111 D (60-115) mg/dL Calcium 9.6 (8.4-10.2) mg/dL Urine Color Urine Appearance Urine pH (5.0-8.0) Ur Specific [place] (1.005-1.025) Urine Protein (NEG-TRACE) MG/DL Urine Glucose (UA) (NEG) MG/DL Urine Ketones (NEG) MG/DL Urine Blood (NEG) Urine Nitrite (NEG) Ur Leukocyte Esterase (NEG) COVID-19 (ZACK) (Negative) COVID-19 Clin Com 11/11/21 Range/Units 10:11 WBC (4.8-10.8) X10*3/uL RBC (4.60-5.80) X10*6/uL Hgb (14.0-18.0) g/dl Hct (42.0-52.0) % MCV (80.0-98.0) fL MCH (27.0-33.0) pg MCHC (31.0-36.0) g/dl RDW (11.0-16.0) % Plt Count (160-400) X10*3/uL MPV (9.4-12.4) fL Immature Gran % (Auto) (0.0-0.4) % Neut % (Auto) (45-73) % Lymph % (Auto) (20-40) % Branch % (Auto) (2-11) % Eos % (Auto) (0-4) % Baso % (Auto) (0-2) % Lymph # (Auto) (1.2-4.9) X10*3/uL Branch # (Auto) (0.1-1.2) X10*3/uL Eos # (Auto) (0.0-0.4) X10*3/uL Baso # (Auto) (0.0-0.2) X10*3/uL Abs Immat Gran (auto) (0.00-0.03) X10*3/uL Absolute Neuts (auto) (2.0-8.3) x10*3/uL Absolute Nucleated RBC (0.0-0.012) X10*3/uL Nucleated RBC % (auto) (0.0-0.2) /100WBC PT (9.9-13.0) SEC INR (0.9-1.1) Sodium (135-145) mmol/L Potassium (3.3-5.1) mmol/L Chloride (96-108) mmol/L Carbon Dioxide (22-29) mmol/L Anion Gap (12-20) BUN (9-16) mg/dL Creatinine (0.5-1.4) mg/dL Estim Creat Clear Calc Estimated GFR POC Glucose 134 H (60-115) mg/dL Random Glucose (60-115) mg/dL Calcium (8.4-10.2) mg/dL Urine Color Urine Appearance Urine pH (5.0-8.0) Ur Specific [place] (1.005-1.025) Urine Protein (NEG-TRACE) MG/DL Urine Glucose (UA) (NEG) MG/DL Urine Ketones (NEG) MG/DL Urine Blood (NEG) Urine Nitrite (NEG) Ur Leukocyte Esterase (NEG) COVID-19 (ZACK) (Negative) COVID-19 Clin Com Discharge Plan Discharge Clinical Impression: Hypoglycemia Patient Disposition: Xfer SNF Instructions: Hypoglycemia in a Person with Diabetes (ED) Additional Instructions: return to ED for any worsening symptoms or concerns feed and monitor blood sugars all day INR only 1.6 please follow up and monitor Prescriptions: No Action carvedilol 12.5 mg tablet 1 tab PO BID 0RF Lantus U-100 Insulin 100 unit/mL solution 21 unit subcut DAILY PRN (Reason: pump failure) 0RF hydralazine 25 mg tablet 1 tab PO TID 0RF levothyroxine 75 mcg tablet 1 tab PO DAILY 0RF albuterol sulfate [ProAir HFA] 90 mcg/actuation HFA aerosol inhaler 2 puff PO QID PRN (Reason: wheezing) 0RF tacrolimus 1 mg capsule 2 mg PO DAILY 0RF mycophenolate sodium 180 mg tablet,delayed release (DR/EC) 3 tab PO Q12H 0RF furosemide 40 mg Tablet 40 mg PO DAILY 0RF atorvastatin 40 mg Tablet 40 mg PO DAILY 0RF levetiracetam 500 mg Tablet 500 mg PO BID 0RF aspirin 81 mg Tablet,Delayed Release (Dr/Ec) 81 mg PO DAILY 0RF insulin lispro 100 unit/mL Solution 1 sliding scale dose SUBCUT USEASDIRECTD 0RF Rx Instructions: for infusion pump, up to 60 units daily tacrolimus 1 mg capsule 2 mg PO BEDTIME 0RF warfarin 5 mg tablet 5 mg PO DAILY@1700 Qty: 30 0RF
[2021-11-11 08:32] VITALS: BP 120/67; PULSE 61; O2SAT 100
[2021-11-11 08:36] LABS: Glucose, Whole Blood 85 mg/dL (60-115)
[2021-11-11 08:49] VITALS: BP 115/82; PULSE 70; RESP 18; O2SAT 99; BMI 25.5
[2021-11-11 09:00] LABS: MANUAL DIFF FLAG NO
[2021-11-11 09:02] LABS: Basophils Percent Auto 0.1 % (0-2); Eosinophils Percent Auto 0.4 % (0-4); Hematocrit 36.5 % (42.0-52.0); Hemoglobin 11.8 g/dl (14.0-18.0); Imm Gran Abs Auto 0.02 X10*3/uL (0.00-0.03); Imm Gran Pct Auto 0.3 % (0.0-0.4); Lymphocytes Percent Auto 12.7 % (20-40); Mean Corpuscular HGB Conc 32.3 g/dl (31.0-36.0); Mean Corpuscular Hemoglobin 28.6 pg (27.0-33.0); Mean Corpuscular Volume 88.4 fL (80.0-98.0); Mean Platelet Volume 9.9 fL (9.4-12.4); Monocytes Absolute Auto 0.4 X10*3/uL (0.1-1.2); Monocytes Percent Auto 5.2 % (2-11); Neutrophils Absolute Auto 6.2 x10*3/uL (2.0-8.3); Neutrophils Percent Auto 81.3 % (45-73); Platelet Count 331 X10*3/uL (160-400); Red Blood Count 4.13 X10*6/uL (4.60-5.80); Red Cell Distribution Width 13.2 % (11.0-16.0); White Blood Count 7.6 X10*3/uL (4.8-10.8)
[2021-11-11 09:02] LABS: Appearance Urine CLEAR; Color Urine STRAW; Glucose Urine UA NEG (NEG); Leukocyte Esterase Urine NEG (NEG); Nitrite Urine NEG (NEG); Specific Gravity - Urine 1.015 (1.005-1.025); Urine Blood NEG (NEG); Urine Ketones NEG (NEG); Urine Protein NEG (NEG-TRACE)
[2021-11-11 09:17] LABS: COVID-19 Test Negative (Negative); IDNOW Serial# 9DB6401D
[2021-11-11 09:19] LABS: Anion Gap 14 (12-20); Blood Urea Nitrogen 55 mg/dL (9-16); Calcium 9.6 mg/dL (8.4-10.2); Carbon Dioxide 26 mmol/L (22-29); Chloride 103 mmol/L (96-108); Creatinine Clr Calc Pharmacy 29.3; Estimated Glomerular Filt Rate 25; Glucose Random 111 mg/dL (60-115); Potassium 4.9 mmol/L (3.3-5.1); Sodium 138 mmol/L (135-145)
[2021-11-11 09:58] LABS: INTERNATIONAL NORM RATIO 1.6 (0.9-1.1); Prothrombin Time 17.9 SEC (9.9-13.0)
[2021-11-11 10:14] LABS: Glucose, Whole Blood 134 mg/dL (60-115)
[2021-11-11 13:24] LABS: Glucose, Whole Blood 184 mg/dL (60-115)
== END 2021-11-11 13:33 | disposition skilled nursing facility (03) ==
PROVIDERS: Emergency Provider Emergency Medicine
DX: E10.649 Type 1 diabetes mellitus with hypoglycemia without coma (principal); Z79.899 Other long term (current) drug therapy; Z20.822 Contact with and (suspected) exposure to COVID-19
CPT/HCPCS: 36415; 71045; 80048; 81003; 82947; 85025; 85610; 87635; 99283

== ENCOUNTER 2022-01-01 12:31 | Inpatient (IN) | payer OTHER, SELFPAY ==
--- NOTE | ~2022-01-01 | XR_ITS ---
EXAMINATION: XR CHEST CLINICAL INFORMATION: Weakness and stroke. COMPARISON: None TECHNIQUE: Portable AP view of the chest was obtained. XR/XR chest 1V FINDINGS/IMPRESSION: The study is limited by portable technique. There has been no significant radiographic change compared with November 11, 2021. There may be a small loculated pneumothorax at the periphery of the right upper lung versus emphysema, unchanged. No new pneumothorax, pleural fluid or infiltrate is seen. The heart size is poorly evaluated. The aorta is mildly atherosclerotic. There is a right humeral head enchondromas versus bone infarct. There are multiple fracture deformities of ribs and of the right scapula. The patient is status post ORIF of multiple right ribs.
--- NOTE | ~2022-01-01 | CT_ITS ---
EXAMINATION: CT HEAD WITHOUT CONTRAST (STROKE PROTOCOL) CLINICAL INFORMATION: Stroke protocol. Right facial droop. Also probable vasovagal episode. Prior history infarcts. COMPARISON: Noncontrast CT head 10/24/2021, 10/04/2008. TECHNIQUE: Contiguous axial imaging was performed from the skull base to vertex without intravenous administration of contrast. This CT examination was performed using dose optimization techniques as appropriate, variously including the following: *Automated exposure control *Adjustment of mA and/or kV according to patient size (this includes techniques or standardized protocols for targeted exams where dose is matched to indication/reason for exam; i.e. extremities or head) *Use of iterative reconstruction technique DLP: 729 mGy-cm FINDINGS: There is no intracranial hemorrhage, hematoma, or extra-axial fluid collection. No mass effect or midline shift. There is old territorial infarct left temporal occipital parietal region similar in distribution to prior study, lower in attenuation with some compensatory enlargement left lateral ventricle. There is no superimposed hydrocephalus or subependymal resorption. There are interval cortical infarcts noted bilateral vertex, series 3 image 26 and new right periventricular white matter low-attenuation under 1 cm, series 3 image 19. Probable maturing subacute infarct posterior right centrum semiovale. No mass lesion. Further assessment with MR brain with the helpful to assist in determining which infarcts may be recent. There is no pneumocephalus. Old nondisplaced left temporal calvarial fracture again seen. No air-fluid levels sinuses, middle ears, or mastoids. Preliminary CT results called and discussed with Dr. Figueredo in the emergency department at [address]/CT head for stroke IMPRESSION: -No intracranial hemorrhage or hematoma. -Old appearing infarcts left temporal occipital parietal. -Probable subacute infarcts bilateral vertex, better appreciated on current exam. New right periventricular white matter low-attenuation under 1 cm. MRI may be helpful to help distinguish which infarct may be recent. -Nondisplaced left temporal calvarial fracture, stable from 10/24/2021.
--- NOTE | 2022-01-01 12:33 | ED.WEAKNESS ---
HPI - Weakness General Chief complaint: Stroke Stated complaint: STROKE ALERT,LKWT 11:30,SLUR SPEECH,UNK THINNERS Time Seen by Provider: 01/01/22 12:33 Source: EMS Mode of arrival: EMS Limitations: language barrier and other (aphasia from old stroke) History of Present Illness HPI Narrative: patient had diarrhea x 3 and had syncope x2. After the last syncope he developed right facial droop and more slurred speech. He has baseline aphasia and left sided weakness from old strokes. Symptoms started at 11:30am. I saw the patient upon arrival MD Complaint: focal weakness Onset (ago): hour(s) Duration: constant Location: face Severity: mild Relieving factors: none Exacerbating factors: none Related Data Home Medications Medication Instructions Recorded Confirmed albuterol sulfate 90 mcg/actuation 2 puff PO QID PRN wheezing 10/24/21 01/01/22 aerosol inhaler (ProAir HFA) aspirin 81 mg tablet,delayed 81 mg PO DAILY 10/24/21 01/01/22 release atorvastatin 40 mg tablet 40 mg PO BEDTIME 10/24/21 01/01/22 carvedilol 12.5 mg tablet 1 tab PO BID 10/24/21 01/01/22 furosemide 40 mg tablet 40 mg PO DAILY 10/24/21 01/01/22 hydralazine 25 mg tablet 1 tab PO TID 10/24/21 01/01/22 insulin glargine 100 unit/mL 18 unit subcut BEDTIME 10/24/21 01/01/22 subcutaneous solution (Lantus U-100 Insulin) insulin lispro 100 unit/mL 1 sliding scale dose subcut 10/24/21 01/01/22 subcutaneous solution USEASDIRECTD levetiracetam 500 mg tablet 500 mg PO BID 10/24/21 01/01/22 levothyroxine 75 mcg tablet 1 tab PO DAILY 10/24/21 01/01/22 mycophenolate sodium 180 mg 3 tab PO Q12H 10/24/21 01/01/22 tablet,delayed release tacrolimus 1 mg capsule, 2 mg PO BEDTIME 10/24/21 01/01/22 immediate-release tacrolimus 1 mg capsule, 2 mg PO DAILY 10/24/21 01/01/22 immediate-release warfarin 3 mg tablet 3 mg PO DAILY@1800 01/01/22 01/01/22 Allergies Allergy/AdvReac Type Severity Reaction Status Date / Time No Known Allergies Allergy Verified 01/01/22 20:47 Review of Systems Neurologic: Denies Sensory deficit (Neuro) [facility] Past Medical History Medical History (Updated 01/02/22 @ 11:04 by Renny Murdock MD) Acute CVA (cerebrovascular accident) Aphasia Cerebral infarct CKD (chronic kidney disease) Depression Encephalopathy End stage renal disease HTN (hypertension) Hyperlipemia Hypothyroid Immunosuppressed status Intracerebral hemorrhage Malignant neuroleptic syndrome Renal transplant disorder Type 1 diabetes Wernicke's fluent aphasia Surgical History Kidney replaced by transplant Social History Social History Household Members: None and Other Housing: Retirement Do you presently have visiting nurse or other home services: No Unable to assess alcohol history related to: Unknown Alcohol intake: never Patient Tobacco Use Status: Tobacco use Unknown Use of substances other than those prescribed or required for medical reasons: No Currently Displaying Signs/Symptoms of Drug Intoxication Withdrawal: No Have you been hit, kicked, punched, or otherwise hurt by someone within the past year? If so, by whom?: No Do you feel safe in your current relationship?: No Current Relationship Is there a partner from a previous relationship who is making you feel unsafe now?: No Are you made to feel afraid or neglected: No Advance Directives: No Advance Directives Information Provided: No Do you have thoughts of harming others: None Do you have a plan to hurt others: No Plan Recently lost weight without trying: No Nutrition Risks: No Nutritional Risk Poor oral hygiene: No service: No Current occupational status: disabled Physical Exam Vital Signs: Vital Signs: Last Vital Signs Temp 98.3 F 01/03/22 15:23 Pulse 68 01/03/22 15:23 Resp 14 01/03/22 15:23 BP 148/70 H 01/03/22 15:23 Pulse Ox 97 01/03/22 15:23 O2 Del Method 01/03/22 15:23 BMI result Body Mass Index 24.3 Const: Other: male looking older than stated age, with aphasia Orientation/consciousness: oriented to person Limitations: altered mental status and language barrier HEENT: Other: right facial droop Ears: external ears normal General nose exam: Normal external nose present Mouth: Normal oral and palatal mucosa present and oropharynx normal Throat: Yes posterior oropharynx normal Eyes: General: appearance normal, both eyes and all related structures Neck: Other: supple Neck: Yes normal visual inspection Chest: Chest palpation & inspection: normal inspection of the chest Resp: Auscultation: clear to auscultation bilaterally Cardio: Jugular venous distension: no JVD Rate: regular rate Rhythm: regular rhythm Heart sounds: S1 normal heart sound present and S2 normal heart sound present GI: Inspection: Yes normal to inspection Palpation (GI): Soft to palpation, nontender and No hepatosplenomegaly present Auscultation: normal bowel sounds : General: Yes no CVA tenderness Back/Spine/Pelvis: Back: no CVA tenderness Skin: General skin exam: no rashes or lesions noted Neuro: Other: patient with old aphasia, old left arm weakness, new right facial droop General: oriented to person Sensory Exam: No Sensory deficit (Neuro) Extrem: General: Yes normal to inspection Psych: Appearance: grossly normal Course Reevaluation(s) Reevaluation #1: Discussed with Dr. Pinedo, no need for tPA or urgent MRI, would admit Time: 13:01 MDM - Weakness Lab Data Result diagrams: 01/02/22 04:04 01/03/22 10:16 Labs: Lab Results 01/01/22 01/01/22 01/01/22 Range/Units 12:49 12:56 13:08 WBC 9.3 (4.8-10.8) X10*3/uL RBC 3.56 L (4.60-5.80) X10*6/uL Hgb 10.2 L (14.0-18.0) g/dl Hct 31.3 L (42.0-52.0) % MCV 87.9 (80.0-98.0) fL MCH 28.7 (27.0-33.0) pg MCHC 32.6 (31.0-36.0) g/dl RDW 13.0 (11.0-16.0) % Plt Count 348 (160-400) X10*3/uL MPV 9.6 (9.4-12.4) fL Immature Gran % (Auto) 0.3 (0.0-0.4) % Neut % (Auto) 81.9 H (45-73) % Lymph % (Auto) 10.4 L (20-40) % [place] % (Auto) 5.8 (2-11) % Eos % (Auto) 1.4 (0-4) % Baso % (Auto) 0.2 (0-2) % Lymph # (Auto) 1.0 L (1.2-4.9) X10*3/uL [place] # (Auto) 0.5 (0.1-1.2) X10*3/uL Eos # (Auto) 0.1 (0.0-0.4) X10*3/uL Baso # (Auto) 0.0 (0.0-0.2) X10*3/uL Abs Immat Gran (auto) 0.03 (0.00-0.03) X10*3/uL Absolute Neuts (auto) 7.6 (2.0-8.3) x10*3/uL Absolute Nucleated RBC 0.000 (0.0-0.012) X10*3/uL Nucleated RBC % (auto) 0.0 (0.0-0.2) /100WBC PT (10.0-13.1) SEC Whole Blood PT 37.0 H (11.1-13.5) sec INR (0.9-1.1) Whole Blood INR 3.1 H (0.9-1.1) Sodium (135-145) mmol/L Potassium (3.3-5.1) mmol/L Chloride (96-108) mmol/L Carbon Dioxide (22-29) mmol/L Anion Gap (12-20) BUN (9-16) mg/dL Creatinine (0.5-1.4) mg/dL Estim Creat Clear Calc Estimated GFR POC Glucose 124 H (60-115) mg/dL Random Glucose (60-115) mg/dL Calcium (8.4-10.2) mg/dL Troponin I High Sens (<3.5-35.0) ng/L Hold Red Top COVID-19 (ZACK) (Negative) COVID-19 Clin Com 01/01/22 01/01/22 01/01/22 Range/Units 13:08 13:08 13:08 WBC (4.8-10.8) X10*3/uL RBC (4.60-5.80) X10*6/uL Hgb (14.0-18.0) g/dl Hct (42.0-52.0) % MCV (80.0-98.0) fL MCH (27.0-33.0) pg MCHC (31.0-36.0) g/dl RDW (11.0-16.0) % Plt Count (160-400) X10*3/uL MPV (9.4-12.4) fL Immature Gran % (Auto) (0.0-0.4) % Neut % (Auto) (45-73) % Lymph % (Auto) (20-40) % [place] % (Auto) (2-11) % Eos % (Auto) (0-4) % Baso % (Auto) (0-2) % Lymph # (Auto) (1.2-4.9) X10*3/uL [place] # (Auto) (0.1-1.2) X10*3/uL Eos # (Auto) (0.0-0.4) X10*3/uL Baso # (Auto) (0.0-0.2) X10*3/uL Abs Immat Gran (auto) (0.00-0.03) X10*3/uL Absolute Neuts (auto) (2.0-8.3) x10*3/uL Absolute Nucleated RBC (0.0-0.012) X10*3/uL Nucleated RBC % (auto) (0.0-0.2) /100WBC PT 33.9 H (10.0-13.1) SEC Whole Blood PT (11.1-13.5) sec INR 2.8 H (0.9-1.1) Whole Blood INR (0.9-1.1) Sodium 137 (135-145) mmol/L Potassium 4.3 (3.3-5.1) mmol/L Chloride 105 (96-108) mmol/L Carbon Dioxide 23 (22-29) mmol/L Anion Gap 13 (12-20) BUN 60 H (9-16) mg/dL Creatinine 3.11 H (0.5-1.4) mg/dL Estim Creat Clear Calc 21.9 Estimated GFR 21 POC Glucose (60-115) mg/dL Random Glucose 122 H (60-115) mg/dL Calcium 8.8 D (8.4-10.2) mg/dL Troponin I High Sens 8.8 (<3.5-35.0) ng/L Hold Red Top COVID-19 (ZACK) (Negative) COVID-19 Clin Com 01/01/22 01/01/22 Range/Units 13:08 14:19 WBC (4.8-10.8) X10*3/uL RBC (4.60-5.80) X10*6/uL Hgb (14.0-18.0) g/dl Hct (42.0-52.0) % MCV (80.0-98.0) fL MCH (27.0-33.0) pg MCHC (31.0-36.0) g/dl RDW (11.0-16.0) % Plt Count (160-400) X10*3/uL MPV (9.4-12.4) fL Immature Gran % (Auto) (0.0-0.4) % Neut % (Auto) (45-73) % Lymph % (Auto) (20-40) % [place] % (Auto) (2-11) % Eos % (Auto) (0-4) % Baso % (Auto) (0-2) % Lymph # (Auto) (1.2-4.9) X10*3/uL [place] # (Auto) (0.1-1.2) X10*3/uL Eos # (Auto) (0.0-0.4) X10*3/uL Baso # (Auto) (0.0-0.2) X10*3/uL Abs Immat Gran (auto) (0.00-0.03) X10*3/uL Absolute Neuts (auto) (2.0-8.3) x10*3/uL Absolute Nucleated RBC (0.0-0.012) X10*3/uL Nucleated RBC % (auto) (0.0-0.2) /100WBC PT (10.0-13.1) SEC Whole Blood PT (11.1-13.5) sec INR (0.9-1.1) Whole Blood INR (0.9-1.1) Sodium (135-145) mmol/L Potassium (3.3-5.1) mmol/L Chloride (96-108) mmol/L Carbon Dioxide (22-29) mmol/L Anion Gap (12-20) BUN (9-16) mg/dL Creatinine (0.5-1.4) mg/dL Estim Creat Clear Calc Estimated GFR POC Glucose (60-115) mg/dL Random Glucose (60-115) mg/dL Calcium (8.4-10.2) mg/dL Troponin I High Sens (<3.5-35.0) ng/L Hold Red Top See Note COVID-19 (ZACK) Negative (Negative) COVID-19 Clin Com See Note Imaging Data CT scan - head: Radiologist's impression: CT/CT head for stroke IMPRESSION: -No intracranial hemorrhage or hematoma. ? -Old appearing infarcts left temporal occipital parietal. ? -Probable subacute infarcts bilateral vertex, better appreciated on current exam. New right periventricular white matter low-attenuation under 1 cm. MRI may be helpful to help distinguish which infarct may be recent. ? -Nondisplaced left temporal calvarial fracture, stable from 10/24/2021. ? ? Dictated By: Emmanuel Pedraza MD Signed By: <Electronically signed by Emmanuel Pedraza MD in OV> 01/01/22 1306 Critical Care Time Critical Care Time Attestation: I spent 40 minutes of critical care, with interventions, assessments, speaking to patient, consultants, and family. Discharge Plan Discharge Clinical Impression: Syncope and collapse, Cerebrovascular accident Patient Disposition: Admitted As Inpatient Interventions: Admission Worksheet (ED) Last Done: 01/02/22 05:10 Discharge Date/Time: 01/02/22 05:22
--- NOTE | 2022-01-01 12:38 | ECG_ITS ---
Test Reason : syncope and stroke Blood Pressure : / mmHG Vent. Rate : 067 BPM Atrial Rate : 067 BPM P-R Int : 174 ms QRS Dur : 078 ms QT Int : 378 ms P-R-T Axes : 035 -27 130 degrees QTc Int : 399 ms Normal sinus rhythm Minimal voltage criteria for LVH, may be normal variant ( R in aVL ) Inferior infarct (cited on or before 04-OCT-2008) T wave abnormality, consider lateral ischemia Abnormal ECG When compared with ECG of 24-OCT-2021 08:41, T wave inversion no longer evident in Inferior leads Referred By: Emmanuel Figueredo Electronically Signed By:David Tomlinson
[2022-01-01 12:54] VITALS: BMI 24.3
[2022-01-01 12:54] LABS: Glucose, Whole Blood 124 mg/dL (60-115)
[2022-01-01 12:55] VITALS: BP 107/69; PULSE 72; RESP 12; TEMP 36.7; O2SAT 100; BMI 24.3
--- NOTE | 2022-01-01 12:55 | PC.NURSE ---
PATIENT ASSESSED WITH USE OF TIP PRINTER . PATIENT PRESENTS WITH LEFT FACIAL DROP. ABLE TO COMMUNICATE NAME AND DATE OF . UNABLE TO TELL ME WHERE HE WAS OR EVENTS LEADING UP TO HOW HE ENDED UP IN THE ED . LEFT PUPIL SLUGGISH REACTION . RIGHT PUPIL REACTIVE . PATIENT UNABLE TO BATTERY ENGINEER HANDS OR PUSH AGAINST. NO DRIFTING NOTED ON ANASTACIO CHECKS WHEN EYES WHERE CLOSED . PATIENT WAS ABLE TO LIFT FEET AND PUSH . SKIN PINK WARM AND DRY . PATIENT AWARE OF PLAN OF CARE .
[2022-01-01 13:00] LABS: ~PT, ~INR - Anti Coag Clinic 3.1 (0.9-1.1)
[2022-01-01 13:14] LABS: MANUAL DIFF FLAG NO
[2022-01-01 13:16] LABS: Basophils Percent Auto 0.2 % (0-2); Eosinophils Absolute Auto 0.1 X10*3/uL (0.0-0.4); Eosinophils Percent Auto 1.4 % (0-4); Hematocrit 31.3 % (42.0-52.0); Hemoglobin 10.2 g/dl (14.0-18.0); Imm Gran Abs Auto 0.03 X10*3/uL (0.00-0.03); Imm Gran Pct Auto 0.3 % (0.0-0.4); Lymphocytes Percent Auto 10.4 % (20-40); Mean Corpuscular HGB Conc 32.6 g/dl (31.0-36.0); Mean Corpuscular Hemoglobin 28.7 pg (27.0-33.0); Mean Corpuscular Volume 87.9 fL (80.0-98.0); Mean Platelet Volume 9.6 fL (9.4-12.4); Monocytes Absolute Auto 0.5 X10*3/uL (0.1-1.2); Monocytes Percent Auto 5.8 % (2-11); Neutrophils Absolute Auto 7.6 x10*3/uL (2.0-8.3); Neutrophils Percent Auto 81.9 % (45-73); Platelet Count 348 X10*3/uL (160-400); Red Blood Count 3.56 X10*6/uL (4.60-5.80); White Blood Count 9.3 X10*3/uL (4.8-10.8)
[2022-01-01 13:21] LABS: INTERNATIONAL NORM RATIO 2.8 (0.9-1.1); Prothrombin Time 33.9 SEC (10.0-13.1)
[2022-01-01 13:24] LABS: Stroke Lab Use COMPLETE
[2022-01-01 13:49] LABS: Anion Gap 13 (12-20); Blood Urea Nitrogen 60 mg/dL (9-16); Calcium 8.8 mg/dL (8.4-10.2); Chloride 105 mmol/L (96-108); Creatinine Clr Calc Pharmacy 21.9; Estimated Glomerular Filt Rate 21; Glucose Random 122 mg/dL (60-115); Potassium 4.3 mmol/L (3.3-5.1); Sodium 137 mmol/L (135-145); Troponin-I High Sensitivity 8.8 ng/L (<3.5-35.0)
[2022-01-01 13:55] LABS: Carbon Dioxide 23 mmol/L (22-29)
[2022-01-01 14:00] VITALS: BP 113/53; PULSE 63; RESP 16; TEMP 36.7; O2SAT 100
--- NOTE | 2022-01-01 14:54 | PC.NURSE ---
DR Juana HARVEY AND JULIANO STROKE RN AT BEDSIDE . PATIENT AWARE OF CARE .
[2022-01-01 15:00] LABS: COVID-19 Test Negative (Negative)
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
--- NOTE | 2022-01-01 15:42 | MHC.STROKE ---
01/01/22 1226 [facility] PRE-NOTIFIED FOR STROKE ALERT , LKW 1130. ARRIVED AT 1231, SEEN BY ED PROVIDER, RIGHT DROOP AND INCREASED SLURRED SPEECH, CT HEAD FOR STROKE DONE AT 1241, NO BLEED. INR 2.8 (ON COUMADIN), EXCLUDED FROM [facility]. PATIENT KNOWN TO STROKE SERVICE, RECENT TEMP/OCCIPITAL STROKE 10/24/21, ANOTHER EXCLUSION (RECENT STROKE WITHIN 3 MONTHS). NIHSS =2 DIFFICULT TO ASSESS DUE TO PRIOR STROKE AND RESIDUAL SYMPTOMS. PMH: CRF, RENAL TRANSPLANT, CAD, CVA, ICH, SDH, APHASIA, DM, HLD, HTN, SEIZURES, ENCEPHALOPATHY, DEPRESSION, LEFT EYE BLIND.[SEE OLD RECORD] DANISH SPEAKING ONLY, I REVIEWED THIS INFORMATION WITH DR LE, HE HAD SEEN HIM IN SEPTEMBER 2021. HE PASSED SWALLOW SCREEN. I WILL CONTINUE TO FOLLOW.
--- NOTE | 2022-01-01 15:50 | PHA.MEDREC ---
Pharmacy Consult ? Medication Reconciliation Pharmacy has completed the medication reconciliation.
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
[2022-01-01] MEDS: 0.9 % Sodium Chloride Flush 3 ML SYRINGE IVFLUSH ×2 (16:56→23:34)
[2022-01-01] MEDS: 0.9 % Sodium Chloride 1,000 ML 100 ML IVCONT (16:57)
[2022-01-01 17:01] VITALS: BP 131/64; PULSE 72; RESP 18; O2SAT 98
[2022-01-01] MEDS: Warfarin Sodium 3 MG TABLET PO (18:21)
[2022-01-01 20:21] VITALS: BP 131/79; PULSE 74; RESP 13; O2SAT 98
[2022-01-01] MEDS: levETIRAcetam 500 MG TABLET PO (20:47)
[2022-01-01] MEDS: Atorvastatin Calcium 40 MG TABLET PO (20:47)
[2022-01-01 20:54] LABS: Glucose, Whole Blood 179 mg/dL (60-115)
[2022-01-01] MEDS: Insulin Lispro 100 UNIT/ML 3 ML VIAL SUBCUT (20:57)
[2022-01-01] MEDS: Mycophenolate Sodium 180 MG TABLET.DR 540 MG PO (22:19)
[2022-01-01] MEDS: Tacrolimus 1 MG CAPSULE 2 MG PO (22:19)
[2022-01-01 22:25] VITALS: BP 111/73; PULSE 78; RESP 18; O2SAT 97
[2022-01-02] VITALS (9 sets, daily range): BP systolic 131–164; BP diastolic 59–76; PULSE 70–80; RESP 14–20; TEMP 36.2–36.7; O2SAT 96–99; BMI 25.5
[2022-01-02] MEDS: 0.9 % Sodium Chloride 1,000 ML 100 ML IVCONT (02:09)
[2022-01-02] MEDS: Acetaminophen 325 MG TABLET 650 MG PO (03:45)
[2022-01-02 04:47] LABS: Hemoglobin 9.5 g/dl (14.0-18.0); Mean Corpuscular HGB Conc 32.8 g/dl (31.0-36.0); Mean Corpuscular Hemoglobin 28.7 pg (27.0-33.0); Mean Corpuscular Volume 87.6 fL (80.0-98.0); Mean Platelet Volume 9.8 fL (9.4-12.4); Platelet Count 322 X10*3/uL (160-400); Red Blood Count 3.31 X10*6/uL (4.60-5.80); Red Cell Distribution Width 13.2 % (11.0-16.0); White Blood Count 9.5 X10*3/uL (4.8-10.8)
[2022-01-02 05:33] LABS: Anion Gap 15 (12-20); Blood Urea Nitrogen 52 mg/dL (9-16); Calcium 8.3 mg/dL (8.4-10.2); Carbon Dioxide 18 mmol/L (22-29); Chloride 107 mmol/L (96-108); Creatinine Clr Calc Pharmacy 24.8; Estimated Glomerular Filt Rate 24; Glucose Random 230 mg/dL (60-115); Potassium 4.2 mmol/L (3.3-5.1); Sodium 136 mmol/L (135-145)
[2022-01-02 06:07] LABS: Glucose, Whole Blood 260 mg/dL (60-115)
[2022-01-02] MEDS: Insulin Lispro 100 UNIT/ML 3 ML VIAL SUBCUT ×4 (07:19→20:37)
[2022-01-02 07:22] LABS: Glucose, Whole Blood 289 mg/dL (60-115)
[2022-01-02] MEDS: Tacrolimus 1 MG CAPSULE 2 MG PO ×2 (09:03→20:37)
[2022-01-02] MEDS: Levothyroxine Sodium 75 MCG TABLET PO (09:03)
[2022-01-02] MEDS: Aspirin Enteric Coated 81 MG TABLET.DR PO (09:03)
[2022-01-02] MEDS: levETIRAcetam 500 MG TABLET PO ×2 (09:03→20:36)
[2022-01-02] MEDS: 0.9 % Sodium Chloride Flush 3 ML SYRINGE IVFLUSH ×3 (09:03→20:37)
--- NOTE | 2022-01-02 09:30 | MHC.CM.PN ---
Patient is documented to not be able to provide information; CM spoke with Son/HCP/Zachary @ [phone]. Patient comes to [facility] from [facility] where he was receiving STR and the goal is for him to return there to complete STR(Likely will become LTC); CM has initiated and will follow for dc planning. Patient has received Covid vax X3 and PCP at [facility] is Dr. Ashley Mata.
[2022-01-02 09:55] LABS: INTERNATIONAL NORM RATIO 3.2 (0.9-1.1); Prothrombin Time 38.1 SEC (10.0-13.1)
[2022-01-02] MEDS: Mycophenolate Sodium 180 MG TABLET.DR 540 MG PO ×2 (10:15→20:36)
--- NOTE | 2022-01-02 10:44 | MHC.SL.SWA ---
Speech Pathologist Impression: Risk of Aspiration Due to: Neurological Condition Dysphasia Diet Status: Liquid Consistency and Strategies for Safe Swallow: Liquid Intake Recommendation: Thin Liquid Intake Strategies: Small Sips Solid Food Consistency: Dietary Recommendations: Chopped/Advanced (NDD3) Additional Modifications to Solid Foods: Add sauces and gravies. Patient will need assistance with tray, with food cut into bite size pieces if needed; as well as assistance during meal due to upper extremity weakness. Oral Medication Intake: Whole with Liquid Please contact the pharmacy regarding appropriate crushable or liquid drug formulations that are available whenever modified delivery is recommended. Compensatory Strategies and Precautions to be Taken for Safe Swallow: Sitting Upright (90 deg) Liquids from Cup Small Bites and Sips Alternate Liquids/Solids Rate of Ingestion Change Supervision While Eating and Drinking for Safe Swallow: Total Assistance (1:1) Foods to Avoid: Tough or difficult to chew solids. Swallowing Recommended Treatments: Compens. Strategy Educat. Recommendation for Speech: Inpatient Speech Therapy Comment: Pt presents w/ mild oral phase dysphagia due to generalized oral weakness from HX CVAs. Pt tolerates thin liquids well with normal oral and pharyngeal phases of swallow observed, no clinical signs of aspiration. Recommend UPGRADE diet to Chopped/Advanced (NDD2) w/ THIN liquids, Pills WHOLE w/Liquid. Pt at baseline has moderate to severe Aphasia and mild dysarthria. Recommendations communicated by secure text to MD, [employer], upgraded diet consistencies in orders by PUBLIC FINANCE SPECIALIST. PUBLIC FINANCE SPECIALIST will f/u 1-2 times for toleration of diet (diet is a Pt baseline). Frequency/Duration: Date Range for Service Req: Timeline to reassess: Edge Roller Clinican/Clinical Fellow: No Supervisory Statement: I have reviewed and agree with the student/clinical fellow's documentation: N/A Speech Language Pathologist: Lizeth Romero M.A., [facility]-PUBLIC FINANCE SPECIALIST
--- NOTE | 2022-01-02 11:00 | PM.CNNEP ---
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 Baseline creatinine of 2.4-2.8 mg/dL maintained on a regimen of immunosuppression that consists of mycophenolate and tacrolimus, history of diabetic nephropathy status post 2 kidney transplants in the past and a regimen that includes tacrolimus and mycophenolate complex history of multiple medical problems in the past including epidural subdural hemorrhage COPD/emphysema moderate KAREN not on CPAP CAD status post RCA PHUONG back in 2007 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 COVID positivity in June 2021 hypothyroidism hypertension hyperlipidemia hyperparathyroidism status post parathyroidectomy back in 2006 recent history of cerebrovascular accident he was recently discharged from [facility] on October 08 after hospitalization for cerebrovascular accident at the time he presented with a left upper extremity weakness CT imaging revealed bilateral perianal and left occipital stroke compared to previous imaging in 2018, subsequently he had an episode of seizure on September 25 treated with Keppra, at that time neurology on board was concerned for embolic source of infarcts however a TTE x2 and a MARLON did not reveal any cardiac embolic source, patient has some degree of encephalopathic changes his MRI was suboptimal showing multiple strokes, he was discharged home on antiseizure Keppra 500 mg twice a day baby aspirin and a statin, during the time of hospitalization he did have a mild JEWEL creatinine as high as 3.6 mg/dL on discharge from the hospital his creatinine was down to 2.8 mg/dL.? Admitted due to facial droop On admission, creatinine was 3.11 and with IVF,cr is down to 2.75 Review of Systems Constitutional: Reports as per [facility] Past Medical History Medical History Acute CVA (cerebrovascular accident) Aphasia Cerebral infarct CKD (chronic kidney disease) Depression Encephalopathy End stage renal disease HTN (hypertension) Hyperlipemia Hypothyroid Immunosuppressed status Intracerebral hemorrhage Malignant neuroleptic syndrome Renal transplant disorder Type 1 diabetes Wernicke's fluent aphasia Family History Family History Other Hypertension Surgical History Surgical History Kidney replaced by transplant Social History Social History Household Members: None Housing: Care Home Do you presently have visiting nurse or other home services: No Unable to assess alcohol history related to: Unknown Alcohol intake: never Patient Tobacco Use Status: Tobacco use Unknown Tobacco use type: Smokeless Tobacco Cigarette Packs Per Day: 0.3 Cigarettes Per Day: 6.0 Second Hand Smoke Exposure: No service: No Current occupational status: disabled Meds Allergies Allergy/AdvReac Type Severity Reaction Status Date / Time No Known Allergies Allergy Verified 01/01/22 20:47 Active Medications: Current Medications Acetaminophen (Acetaminophen 325 Mg Tablet) 650 mg PO Q6H PRN PRN Reason: Pain, Mild (Pain Scale 1-3) Last Admin: 01/02/22 03:45 Dose: 650 mg Aspirin (Aspirin Enteric Coated 81 Mg Tablet.) 81 mg PO DAILY [facility] Last Admin: 01/02/22 09:03 Dose: 81 mg Atorvastatin Calcium (Atorvastatin Calcium 40 Mg Tablet) 40 mg PO BEDTIME [facility] Last Admin: 01/01/22 20:47 Dose: 40 mg Sodium Chloride (Ns) 1,000 mls @ 100 mls/hr IVCONT .Q10H [facility] Stop: 01/02/22 11:29 Last Admin: 01/02/22 02:09 Dose: 100 mls/hr Insulin Human Lispro (Insulin Lispro 100 Unit/Ml 3 Ml Vial) 0 unit SUBCUT QIDACHS [facility]; Protocol Last Admin: 01/02/22 07:19 Dose: 6 unit Levetiracetam (Levetiracetam 500 Mg Tablet) 500 mg PO BID [facility] Last Admin: 01/02/22 09:03 Dose: 500 mg Levothyroxine Sodium (Levothyroxine Sodium 75 Mcg Tablet) 75 mcg PO DAILY [facility] Last Admin: 01/02/22 09:03 Dose: 75 mcg Mycophenolate Sodium (Mycophenolate Sodium 180 Mg Tablet.) 540 mg PO BID [facility] Last Admin: 01/02/22 10:15 Dose: 540 mg Ondansetron HCl (Ondansetron Hcl 4 Mg/2 Ml Vial) 4 mg IVPUSH Q8H PRN PRN Reason: Nausea and Vomiting Pharmacy Consult (Consult Rx Perform Med Rec) 1 each MISCELLANE ONCE PRN PRN Reason: Consult order Sodium Chloride (0.9 % Sodium Chloride Flush 3 Ml Syringe) 3 ml IVFLUSH QSHIFT [facility] Last Admin: 01/02/22 09:03 Dose: 3 ml Tacrolimus (Tacrolimus 1 Mg Capsule) 2 mg PO BEDTIME [facility] Last Admin: 01/01/22 22:19 Dose: 2 mg Tacrolimus (Tacrolimus 1 Mg Capsule) 2 mg PO DAILY [facility] Last Admin: 01/02/22 09:03 Dose: 2 mg Warfarin Sodium (Warfarin Sodium 3 Mg Tablet) 3 mg PO DAILY@1800 [facility] Last Admin: 01/01/22 18:21 Dose: 3 mg Home Medications Medication Instructions Recorded Confirmed Last Taken Type albuterol sulfate 90 mcg/actuation 2 puff PO QID PRN wheezing 10/24/21 01/17/22 Unknown History aerosol inhaler (ProAir HFA) aspirin 81 mg tablet,delayed 81 mg PO DAILY 10/24/21 01/17/22 Unknown History release atorvastatin 40 mg tablet 40 mg PO BEDTIME 10/24/21 01/17/22 Unknown History carvedilol 12.5 mg tablet 1 tab PO BID 10/24/21 01/17/22 Unknown History furosemide 40 mg tablet 40 mg PO DAILY 10/24/21 01/17/22 Unknown History insulin glargine 100 unit/mL 18 unit subcut BEDTIME 10/24/21 01/17/22 Unknown History subcutaneous solution (Lantus U-100 Insulin) insulin lispro 100 unit/mL 1 sliding scale dose subcut 10/24/21 01/17/22 Unknown History subcutaneous solution USEASDIRECTD levetiracetam 500 mg tablet 500 mg PO BID 10/24/21 01/17/22 Unknown History levothyroxine 75 mcg tablet 1 tab PO DAILY 10/24/21 01/17/22 Unknown History mycophenolate sodium 180 mg 3 tab PO Q12H 10/24/21 01/17/22 Unknown History tablet,delayed release tacrolimus 1 mg capsule, 2 mg PO BEDTIME 10/24/21 01/17/22 Unknown History immediate-release tacrolimus 1 mg capsule, 2 mg PO DAILY 10/24/21 01/17/22 Unknown History immediate-release warfarin 3 mg tablet 3 mg PO DAILY@1800 01/01/22 01/17/22 Unknown History Physical Exam Vital Signs: Last Vital Signs Temp 97.9 F 01/02/22 07:20 Pulse 80 01/02/22 07:20 Resp 20 01/02/22 07:20 BP 140/63 H 01/02/22 07:20 Pulse Ox 96 01/02/22 07:20 O2 Del Method 01/02/22 07:20 BMI result Body Mass Index 25.5 Const Other: Constitutional - Awake and alert HEENT - PERRLA, EOMI, L facial droop Cardiovascular - S1S2, RRR, No edema Respiratory - Normal lung expansion, Normal respiratory effort, No respiratory distress, CTA bilaterally Gastrointestinal - NT / ND; +BS; No rebound or guarding - No CVA tenderness Extremities - no calf tenderness bilaterally, no swelling Musculoskeletal - Normal inspection, normal ROM Skin - Warm/Dry Neurological - Oriented to self, otherwise unable to state where he is currently nor where he lives; 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; able to move both b/l LE against gravity and some resistence Psychological - Appropriate affect Results Lab Results Result Diagrams: 01/02/22 04:04 01/03/22 10:16 Lab results: Chemistry 01/01/22 01/02/22 13:08 04:04 Sodium 137 136 Potassium 4.3 4.2 Carbon Dioxide 23 18 L BUN 60 H 52 H Creatinine 3.11 H 2.75 H Calcium 8.8 D 8.3 L Hematology 01/01/22 01/02/22 13:08 04:04 WBC 9.3 9.5 Hgb 10.2 L 9.5 L Plt Count [id number] 322 Assessment and Plan (1) Encephalopathy: Status: Resolved 56 years old man with complex past medical history including multiple strokes or ischemic infarctions presented in hospital and was noted to have facial asymmetry. This was nothing significant for him and might be related to encephalopathy from metabolic reasons. He was having diarrhea and his renal function suggested dehydration. As far as stroke care is concerned, my recommendation is to continue conservative management as before. Without an MRI of brain, acute stroke is difficult to completely rule out but and other such lesion would not make any significant difference and management. Plan JEWEL superimposed on CKD Acute on chronic CKD creatinine as high as 3.1 mg/dL , was down to 2.75 mg/dL, JEWEL due to prerenal azotemia in the setting of poor oral intake r/o tacro toxicity ; r/o obstruction- although seems unlikely at this time Hold Lasix Keep I > O Immunosuppression status daily tacrolimus levels in a.m. at 6 AM prior to administration of medication.? Goal to keep tacrolimus level at 5?8.? Continue with mycophenolate twice a day. Check Tacro levels HTN Concur with current meds Avoid hypotension Procedures Date of Service Date of Service: 01/02/22
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
[2022-01-02 11:23] LABS: Glucose, Whole Blood 303 mg/dL (60-115)
[2022-01-02 16:49] LABS: Glucose, Whole Blood 179 mg/dL (60-115)
[2022-01-02] MEDS: Warfarin Sodium 3 MG TABLET PO (18:16)
[2022-01-02 20:20] LABS: Glucose, Whole Blood 248 mg/dL (60-115)
[2022-01-02] MEDS: Atorvastatin Calcium 40 MG TABLET PO (20:36)
[2022-01-03 03:54] VITALS: BP 125/69; PULSE 82; RESP 18; TEMP 36.6; O2SAT 98
[2022-01-03 05:52] VITALS: BP 125/69; PULSE 82; RESP 18; TEMP 36.6; O2SAT 98
[2022-01-03 07:17] LABS: INTERNATIONAL NORM RATIO 3.9 (0.9-1.1)
[2022-01-03 07:23] LABS: Glucose, Whole Blood 320 mg/dL (60-115)
[2022-01-03 08:00] VITALS: BP 149/76; PULSE 83; RESP 20; TEMP 36.6; O2SAT 97
[2022-01-03] MEDS: Insulin Lispro 100 UNIT/ML 3 ML VIAL SUBCUT ×3 (08:06→16:54)
[2022-01-03] MEDS: Mycophenolate Sodium 180 MG TABLET.DR 540 MG PO (08:07)
[2022-01-03] MEDS: 0.9 % Sodium Chloride Flush 3 ML SYRINGE IVFLUSH (08:07)
[2022-01-03] MEDS: Tacrolimus 1 MG CAPSULE 2 MG PO (08:07)
[2022-01-03] MEDS: Levothyroxine Sodium 75 MCG TABLET PO (08:07)
[2022-01-03] MEDS: levETIRAcetam 500 MG TABLET PO (08:07)
[2022-01-03] MEDS: Aspirin Enteric Coated 81 MG TABLET.DR PO (08:07)
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
--- NOTE | 2022-01-03 10:06 | PM.DS ---
DS: Providers Provider Date of Service: 01/03/22 Date of admission: 01/01/22 15:13 Primary care physician: Ashley Mata MD Consults: 01/01/22 15:13 Consult to Nephrology Routine Consulting Provider: Renny Murdock Reason for consultation: JEWEL on CKD, renal transplant patient 01/01/22 15:15 Consult to Neurology Routine Consulting Provider: [facility] Reason for consultation: stroke/tia DS: Diagnosis Discharge Diagnosis (1) End stage renal disease: Status: Acute (2) Renal transplant disorder: Status: Acute (3) Encephalopathy: Status: Acute DS: Summary Hospital Course Hospital Course: Date of Service: 01/01/22 Chief Complaint: facial droop This is a 56 year old M with a PMH as outlined below who presents from [facility]. 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 Apparently the patient had several bowel movements this AM with associated loss of consciousness. After the second LOC -- the patient was noted to have a right facial droop and hence he was sent to the ED. Stroke protocol was completed and patients CT head showed subacute infarcts of the bilateral vertex and a new right periventricular white matter low attenuation of 1cm which is new. His case was d/w with the neurology team and he will now be admitted for further work up. Pt is seen and examined in the ED with accounting support specialist services. R facial droop was reported per ED provider, but on my exam L seems more prominant then R. Furthermore, per his ED RN's -- the patients droop is significantly improved compared to when he first arrived. He knows his name but is unable to tell me where he is. Obeys some basic commands otherwise. Hospital course: 1/Probable subacute infarcts bilateral vertex, better appreciated on current exam. New right periventricular white matter low-attenuation under 1 cm. MRI may be helpful to help distinguish which infarct may be recent. Neurologist Dr. Pinedo recommendation: ?As far as stroke care is concerned, my recommendation is to continue conservative management as before.? Without an MRI of brain, acute stroke is difficult to completely rule out but and other such lesion would not make any significant difference and management. He is already on antivcoagulation, he was supposed to have implantable event monitor on outpatient back in October but this was not done, and will revisit this on out outpatient basis. Mental status is at baseline 2. CKD stage 3 to 4, prior ESRD but s/p trans plant, he presented with Creatinine of 3.11 and has come down to 2.61 which is within her baseline. Lasix was stopped, has been followed by Nephrology will follow him on outpatient basis. To have repeat lab in a weekseline following hydration 3. Chronic HFpEF--euvolemei, lasix on hold until next week 4. DM sliding scale POC QIDAC hold lantus today 5. Seizure d/o keppra 6. Diarrhea / syncope at SNF monitor on tele for syncope -- but given history of syncopal episode during BM -- likely vasovagal for dirrhea -- none since arrival to the ED; if recurrentl -- check C. diff. CXR read as there may be a small loculated pneumothorax at the periphery of the RUL vs emphysema -- unchanged; Given this is unchagned since November 11 -- favor emphysema. Monitor respiratory status. To short term rehab for less than 30 days Time Spent with Patient Time attestation: Total time spent providing and/or coordinating discharge services: Discharge coordination time: Greater than 30 minutes Quality: Safe Use of Opioids Does Pt have an Active Cancer Diagnosis on the Problem List?: No Quality: Stroke Does the patient have a stroke diagnosis?: No Physical Exam Vital Signs: Vital Signs: Last Vital Signs Temp 97.9 F 01/03/22 08:00 Pulse 83 01/03/22 08:00 Resp 20 01/03/22 08:00 BP 149/76 H 01/03/22 08:00 Pulse Ox 97 01/03/22 08:00 O2 Del Method 01/03/22 08:00 BMI result Body Mass Index 25.5 Const: Other: .Constitutional - Awake and alert HEENT -? PERRLA, EOMI, L facial droop Cardiovascular -? S1S2, RRR, No edema Respiratory - Normal lung expansion, Normal respiratory effort, No respiratory distress, CTA bilaterally Gastrointestinal -? NT / ND; +BS; No rebound or guarding - No CVA tenderness Extremities - no calf tenderness bilaterally, no swelling Musculoskeletal - Normal inspection, normal ROM Skin - Warm/Dry Neurological -? 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 b/l UE; able to move both b/l LE against gravity and some resistence Psychological - Appropriate affect--baseline DS: Data Data Completed and Pending Labs on day of discharge: Laboratory Results - last 24 hr 01/02/22 01/02/22 01/02/22 11:17 16:05 20:02 PT INR POC Glucose 303 H 179 H 248 H 01/03/22 01/03/22 06:52 07:15 PT 48.0 H INR 3.9 H POC Glucose 320 H Discharge Plan Discharge Anticipated Discharge Date/Time: 01/03/22 09:48 Patient Disposition: Xfer SNF Discharge Diagnosis: JEWEL on CKD, and possible acute stroke Referrals: Ashley Mata MD [Primary Care Provider] - 1 Week Ravindra Dye MD [Physician] - 1 Week (assess for implantable event monitor) Discharge Medications: Continued warfarin 3 mg Tablet 3 mg PO DAILY@1800 carvedilol 12.5 mg tablet 1 tab PO BID insulin glargine [Lantus U-100 Insulin] 100 unit/mL solution 18 unit subcut BEDTIME hydralazine 25 mg tablet 1 tab PO TID levothyroxine 75 mcg tablet 1 tab PO DAILY albuterol sulfate [ProAir HFA] 90 mcg/actuation HFA aerosol inhaler 2 puff PO QID PRN (Reason: wheezing) tacrolimus 1 mg capsule 2 mg PO DAILY mycophenolate sodium 180 mg tablet,delayed release (DR/EC) 3 tab PO Q12H atorvastatin 40 mg Tablet 40 mg PO BEDTIME levetiracetam 500 mg Tablet 500 mg PO BID aspirin 81 mg Tablet,Delayed Release (Dr/Ec) 81 mg PO DAILY insulin lispro 100 unit/mL Solution 1 sliding scale dose SUBCUT USEASDIRECTD Rx Instructions: for infusion pump, up to 60 units daily tacrolimus 1 mg capsule 2 mg PO BEDTIME Held furosemide 40 mg Tablet 40 mg PO DAILY Hold Instructions: Resume on 01/08/22. Discharge Orders: Discharge Order (Routine); Ordered 01/03/22 Ordered By: Roberto Benitez Diet: Advance to usual diet Activity on Discharge: As tolerated Stand Alone Forms: Patient Portal Discharge page Care Plan Goals: prevent rehospialization, stroke prevention Health Concerns: CKD, recurrent strokes Plan of Treatment: continue your medications and follow up with your Doctor and kidney doctor (Dr. Velasquez) Hold coumadin and check INR daily until IRN is less than 2, then restart at half of usual dose (1.5 mg) Hold Lasix until January 08 Check BMP in 1week To short term rehab for less than 30 days, Follow up with [place] [facility] for implatable event monitor Assessment: As above
[2022-01-03 10:50] LABS: Anion Gap 15 (12-20); Blood Urea Nitrogen 43 mg/dL (9-16); Calcium 8.6 mg/dL (8.4-10.2); Carbon Dioxide 20 mmol/L (22-29); Chloride 102 mmol/L (96-108); Creatinine Clr Calc Pharmacy 26.1; Estimated Glomerular Filt Rate 25; Glucose Random 340 mg/dL (60-115); Potassium 4.5 mmol/L (3.3-5.1); Sodium 132 mmol/L (135-145)
--- NOTE | 2022-01-03 11:03 | MHC.CM.PN ---
Per MD ROUNDS, Patient will be medically cleared for dc. Patient is from STR @ [facility] [place] and CM has requested that that facility initiate [facility] auth process. CM will follow.
--- NOTE | 2022-01-03 11:09 | MHC.SL.SWA ---
Speech Pathologist Impression: Mild oral phase dysphagia Risk of Aspiration Due to: Neurological Condition Dysphasia Diet Status: No Change Liquid Consistency and Strategies for Safe Swallow: Liquid Intake Recommendation: Thin Liquid Intake Strategies: Small Sips Solid Food Consistency: Dietary Recommendations: Chopped/Advanced (NDD3) Additional Modifications to Solid Foods: Patient presents with mild oral phase dysphagia d/t generalized oral weakness from hx CVA. Recommend continue w/ patient's baseline CHOPPED/ADVANCED (NDD3) solids and THIN liquids, pills WHOLE in PUREE or LIQUID per patient's tolerance. Further ST intervention no longer warranted at this level of care. Please re-refer w/ any changes or concerns. Recommend outpatient speech therapy evaluate and treat for mod-severe aphasia and mild dysarthria. Oral Medication Intake: Whole with Liquid Please contact the pharmacy regarding appropriate crushable or liquid drug formulations that are available whenever modified delivery is recommended. Compensatory Strategies and Precautions to be Taken for Safe Swallow: Sitting Upright (90 deg) Liquids from Cup Small Bites and Sips Alternate Liquids/Solids Rate of Ingestion Change Supervision While Eating and Drinking for Safe Swallow: Total Supervision (1:1) Foods to Avoid: Tough or difficult to chew solids. Swallowing Recommended Treatments: Compens. Strategy Educat. Recommendation for Speech: Outpatient Speech Therapy Machine Operator Picker Clinican/Clinical Fellow: No Supervisory Statement: I have reviewed and agree with the student/clinical fellow's documentation: N/A Speech Language Pathologist: Reba Hollingsworth M.A., CCC-FOREPART RASPER
[2022-01-03 11:23] LABS: Glucose, Whole Blood 272 mg/dL (60-115)
[2022-01-03 11:54] VITALS: BP 168/77; PULSE 71; RESP 20; TEMP 36.4; O2SAT 100
--- NOTE | 2022-01-03 15:20 | MHC.CM.PN ---
Patient has been medically cleared for dc to STR/SNF today. Patient will return to [facility] to complete his STR today at 6PM, via [facility]. CM spoke with Patient's Son/Zachary @ [phone], who is now aware of and in agreement with the dc plan.
[2022-01-03 15:23] VITALS: BP 148/70; PULSE 68; RESP 14; TEMP 36.8; O2SAT 97
[2022-01-03 16:07] LABS: Glucose, Whole Blood 163 mg/dL (60-115)
== END 2022-01-03 18:19 | disposition skilled nursing facility (03) | DRG 45 ==
LOC: HO.ED 14:10 → HO.EDOVER 15:54 → HO.IMC 01-02 04:39
PROVIDERS: Admitting Provider Family Medicine; Emergency Provider Emergency Medicine; PCP Internal Medicine; Visit Provider Internal Medicine
DX: I63.9 Cerebral infarction, unspecified (principal); G93.41 Metabolic encephalopathy; N17.9 Acute kidney failure, unspecified; D84.821 Immunodeficiency due to drugs; I13.0 Hypertensive heart and chronic kidney disease with heart failure and stage 1 through stage 4 chronic kidney disease, or unspecified chronic kidney disease; I50.32 Chronic diastolic (congestive) heart failure; E86.0 Dehydration; R47.81 Slurred speech; E10.22 Type 1 diabetes mellitus with diabetic chronic kidney disease; Z66 Do not resuscitate; R29.810 Facial weakness; N18.30 Chronic kidney disease, stage 3 unspecified; E03.9 Hypothyroidism, unspecified; I25.10 Atherosclerotic heart disease of native coronary artery without angina pectoris; Z95.5 Presence of coronary angioplasty implant and graft; E78.5 Hyperlipidemia, unspecified; Z86.73 Personal history of transient ischemic attack (TIA), and cerebral infarction without residual deficits; Z86.16 Personal history of COVID-19; Z20.822 Contact with and (suspected) exposure to COVID-19; Z94.0 Kidney transplant status; Z79.4 Long term (current) use of insulin; Z79.01 Long term (current) use of anticoagulants; Z79.890 Hormone replacement therapy; Z79.899 Other long term (current) drug therapy
CPT/HCPCS: 36415; 70450; 71045; 80048; 82947; 84484; 85025; 85027; 85610; 87635; 92526; 92610; 93005; 99219; 99285

== ENCOUNTER 2022-01-17 10:22 | Inpatient (IN) | payer OTHER, SELFPAY ==
--- NOTE | ~2022-01-17 | CT_ITS ---
EXAMINATION: CT HEAD WITHOUT CONTRAST CLINICAL INFORMATION: Seizure COMPARISON: January 01, 2022 and October 24, 2021 TECHNIQUE: Contiguous axial imaging was performed from the skull base to vertex without intravenous administration of contrast. This CT examination was performed using dose optimization techniques as appropriate, variously including the following: *Automated exposure control *Adjustment of mA and/or kV according to patient size (this includes techniques or standardized protocols for targeted exams where dose is matched to indication/reason for exam; i.e. extremities or head) *Use of iterative reconstruction technique DLP: 733 mGy-cm FINDINGS: There is no evidence of acute intracranial hemorrhage or territorial infarction. No abnormal mass effect or midline shift is seen. No extra-axial fluid collections are identified. There is prominence of ventricles, sulci, and cisterns. Stable old infarcts with loss of garvin-white matter interface is seen within the left parietal and occipital lobes, right vertex, and left vertex. Periventricular white matter low density is present. Old nondisplaced left skull fracture present. Mastoid air cells appear unremarkable. Paranasal sinuses demonstrate a small mucous retention cyst within the left maxillary sinus. CT/CT head/brain wo con IMPRESSION: No acute intracranial pathology. Multiple stable infarcts.
--- NOTE | ~2022-01-17 | XR_ITS ---
EXAMINATION: XR CHEST CLINICAL INFORMATION: Status post seizure, rule out aspiration. COMPARISON: 01/01/2022 chest radiograph. TECHNIQUE: 2 views of the chest were obtained. FINDINGS: The lungs are clear. There are no pleural effusions. The heart and mediastinal structures are unremarkable. Right rib reconstruction plates are noted in place. Old healed multilevel left rib fractures. Old healed bilateral clavicular fractures are noted. XR/XR chest 2V IMPRESSION: No acute cardiopulmonary process.
[2022-01-17 10:31] VITALS: BP 101/57; BP 108/57; PULSE 66; PULSE 72; RESP 18; TEMP 36.4; O2SAT 100; O2SAT 99; BMI 25.8
--- NOTE | 2022-01-17 11:13 | ECG_ITS ---
Test Reason : hypoglycemia Blood Pressure : / mmHG Vent. Rate : 066 BPM Atrial Rate : 066 BPM P-R Int : 166 ms QRS Dur : 074 ms QT Int : 396 ms P-R-T Axes : 035 -24 126 degrees QTc Int : 415 ms Normal sinus rhythm Minimal voltage criteria for LVH, may be normal variant ( R in aVL ) Inferior infarct (cited on or before 04-OCT-2008) T wave abnormality, consider lateral ischemia Abnormal ECG When compared with ECG of 01-JAN-2022 13:32, No significant change was found Referred By: Minda Smiley Electronically Signed By:David Tomlinson
--- NOTE | 2022-01-17 11:23 | ED_ITS ---
HPI - Seizure General Chief Complaint: Seizure Stated Complaint: WIT SZ,POST ICTAL ON EMS ARRIVAL Time Seen by Provider: 01/17/22 10:58 Source: EMS Mode of arrival: EMS Limitations: altered mental status (mild confusion/speech difficulty) History of Present Illness HPI Narrative: 56 yo male with history of CKD, prior ESRF s/p renal transplant, CHF, IDDM, seizure disorder on keppra who presents with concern from seizure from [facility] No additional information is available at this time. Patient unable to provide history Related Data Home Medications Medication Instructions Recorded Confirmed albuterol sulfate 90 mcg/actuation 2 puff PO QID PRN wheezing 10/24/21 01/17/22 aerosol inhaler (ProAir HFA) aspirin 81 mg tablet,delayed 81 mg PO DAILY 10/24/21 01/17/22 release atorvastatin 40 mg tablet 40 mg PO BEDTIME 10/24/21 01/17/22 carvedilol 12.5 mg tablet 1 tab PO BID 10/24/21 01/17/22 furosemide 40 mg tablet 40 mg PO DAILY 10/24/21 01/17/22 hydralazine 25 mg tablet 1 tab PO TID 10/24/21 01/17/22 insulin glargine 100 unit/mL 18 unit subcut BEDTIME 10/24/21 01/17/22 subcutaneous solution (Lantus U-100 Insulin) insulin lispro 100 unit/mL 1 sliding scale dose subcut 10/24/21 01/17/22 subcutaneous solution USEASDIRECTD levetiracetam 500 mg tablet 500 mg PO BID 10/24/21 01/17/22 levothyroxine 75 mcg tablet 1 tab PO DAILY 10/24/21 01/17/22 mycophenolate sodium 180 mg 3 tab PO Q12H 10/24/21 01/17/22 tablet,delayed release tacrolimus 1 mg capsule, 2 mg PO BEDTIME 10/24/21 01/17/22 immediate-release tacrolimus 1 mg capsule, 2 mg PO DAILY 10/24/21 01/17/22 immediate-release warfarin 3 mg tablet 3 mg PO DAILY@1800 01/01/22 01/17/22 Allergies Allergy/AdvReac Type Severity Reaction Status Date / Time No Known Allergies Allergy Verified 01/01/22 20:47 Review of Systems Review of Systems: Yes Unobtainable due to mental status Neurologic: Denies Abnormal speech present [facility] Past Medical History Attestation statement: The following information was validated with the patient. Source: old records reviewed and nursing notes reviewed Medical History Acute CVA (cerebrovascular accident) Aphasia Cerebral infarct CKD (chronic kidney disease) Depression Encephalopathy End stage renal disease HTN (hypertension) Hyperlipemia Hypothyroid Immunosuppressed status Intracerebral hemorrhage Malignant neuroleptic syndrome Renal transplant disorder Type 1 diabetes Wernicke's fluent aphasia Surgical History Kidney replaced by transplant Family History Family History Other Hypertension Social History Social History Household Members: None and Other Housing: Half-Way Do you presently have visiting nurse or other home services: No Unable to assess alcohol history related to: Unknown Alcohol intake: never Patient Tobacco Use Status: Tobacco use Unknown Advance Directives: No Advance Directives Information Provided: Yes service: No Current occupational status: disabled Physical Exam Vital Signs: Vital Signs: Last Vital Signs Temp 97.6 F 01/17/22 10:31 Pulse 71 01/17/22 12:54 Resp 16 01/17/22 11:48 BP 130/69 01/17/22 12:54 Pulse Ox 100 01/17/22 11:48 O2 Del Method 01/17/22 11:48 BMI result Body Mass Index 25.8 Const: General: alert Orientation/consciousness: oriented to person and oriented to place Limitations: altered mental status (mild confusion, speech difficulty) and language barrier HEENT: Head: Yes normal to inspection, No Hinson's sign and No raccoon eyes Ears: hearing grossly normal bilaterally and TM's normal bilaterally General nose exam: Normal external nose present Face and sinus: Yes normal facial exam Mouth: Normal oral and palatal mucosa present Throat: Yes posterior oropharynx normal Eyes: General: appearance normal, both eyes and all related structures Pupils: Equal, round and reactive pupils present Neck: Neck: Yes normal visual inspection, Yes full ROM, Yes no lymphadenopathy and Yes no meningeal signs Chest: Chest palpation & inspection: normal inspection of the chest Resp: Effort & Inspection: normal respiratory effort Auscultation: clear to auscultation bilaterally Cardio: Rate: regular rate Rhythm: regular rhythm Peripheral pulses: Peripheral pulses 2+ throughout GI: Inspection: Yes normal to inspection Palpation (GI): Soft to palpation and nontender Auscultation: normal bowel sounds Back/Spine/Pelvis: Thoracic/Lumbar Spine: thoracic and lumbar spine normal to inspection Skin: General skin exam: no rashes or lesions noted Neuro: Other: Speech is slow-difficult to comprehend General: oriented to person, oriented to place, moves all extremities, no meningeal signs, no focal motor deficits, normal sensation to monofilament and Unable to assess gait Cranial nerves: Yes Equal, round and reactive pupils present and Yes Midline tongue present Speech: No Abnormal speech present Gait exam (Neuro): Unable to assess gait Sensory Exam: Normal double simultaneous stimulation for sensation Extrem: General: Yes normal to inspection Course Course Course Narrative: I called and spoke to the nurse at [facility] ([place]). She tells me the patient was outside smoking. Staff was nearby and noted that he started to fall. They called him and lower him to the ground. He had about 15 seconds of generalized shaking activity followed by episodes of vomiting. He was diaphoretic at the time. He rouses that intervention after approximately 1-2 minute. There was no incontinence or tongue bite. His blood sugar was 128. Consider syncope, seizure. Patient is on 500 mg of b.i.d. Keppra with no recent changes no recent illnesses. Will check orthostatics, troponin, CT head, CXR to r/o aspiration PNA. Reevaluation(s) Reevaluation #1: 1250-Labs show JEWEL. In the setting of renal transplant will give NSB. Will check UA, orthostatics. Patient may need admission; Reevaluation #2: 1440-UA is negative. Orthostatics are negative. Patient has acute on chronic kidney injury and likely syncope from dehydration. I discussed this with his son Zachary. Patient is quite agitated. He is refusing care. The son tells me this is quite typical for his TBI. Therefore I will give him a low-dose benzo. Discussed with Dr Su who accepted admission, MDM - Seizure MDM Narrative Medical decision making narrative: 56-year-old male with a history of TBI, multiple strokes on Coumadin, renal transplant on immunosuppressants, seizure disorder on Keppra 500 mg twice daily here with reports of seizure which occurred at the short-term rehab. No other information is available. On arrival the patient is alert and oriented x2. He has no focal neurological deficits but his speech is slow and difficult to comprehend. He tells me he was outside smoking a cigarette and it was very hot outside. He tells me he started to feel weak and had a headache and felt like his blood sugar might be low. This is the last thing he remembers. His vitals are stable. Will need collateral information from the snf staff. In the meantime will obtain POC, labs including Keppra level, will have nursing initiate seizure precautions Medical Records Attestation: I reviewed the patient's medical records. Lab Data Attestation: I reviewed the patient's lab results. Result diagrams: 01/17/22 11:31 01/17/22 11:31 Labs: Lab Results 01/17/22 01/17/22 01/17/22 Range/Units 11:31 11:31 11:31 WBC 6.9 (4.8-10.8) X10*3/uL RBC 3.37 L (4.60-5.80) X10*6/uL Hgb 9.5 L (14.0-18.0) g/dl Hct 29.7 L (42.0-52.0) % MCV 88.1 (80.0-98.0) fL MCH 28.2 (27.0-33.0) pg MCHC 32.0 (31.0-36.0) g/dl RDW 13.2 (11.0-16.0) % Plt Count 435 H D (160-400) X10*3/uL MPV 9.2 L (9.4-12.4) fL Immature Gran % (Auto) 0.3 (0.0-0.4) % Neut % (Auto) 77.4 H (45-73) % Lymph % (Auto) 12.4 L (20-40) % Stanton % (Auto) 8.5 (2-11) % Eos % (Auto) 1.0 (0-4) % Baso % (Auto) 0.4 (0-2) % Lymph # (Auto) 0.9 L (1.2-4.9) X10*3/uL Stanton # (Auto) 0.6 (0.1-1.2) X10*3/uL Eos # (Auto) 0.1 (0.0-0.4) X10*3/uL Baso # (Auto) 0.0 (0.0-0.2) X10*3/uL Abs Immat Gran (auto) 0.02 (0.00-0.03) X10*3/uL Absolute Neuts (auto) 5.4 (2.0-8.3) x10*3/uL Absolute Nucleated RBC 0.000 (0.0-0.012) X10*3/uL Nucleated RBC % (auto) 0.0 (0.0-0.2) /100WBC PT 34.9 H (10.0-13.1) SEC INR 2.9 H (0.9-1.1) Sodium 136 (135-145) mmol/L Potassium 4.5 (3.3-5.1) mmol/L Chloride 103 (96-108) mmol/L Carbon Dioxide 23 (22-29) mmol/L Anion Gap 15 (12-20) BUN 75 H D (9-16) mg/dL Creatinine 3.28 H (0.5-1.4) mg/dL Estim Creat Clear Calc 22.4 Estimated GFR 20 Random Glucose 123 H D (60-115) mg/dL Lactic Acid (0.5-2.0) mmol/L Calcium 8.7 (8.4-10.2) mg/dL Total Bilirubin 0.7 (0.0-1.0) mg/dL Direct Bilirubin 0.3 (0.0-0.5) mg/dL AST 14 D (5-37) U/L ALT 10 (0-40) U/L Alkaline Phosphatase 58 (39-117) U/L Troponin I High Sens (<3.5-35.0) ng/L Total Protein 6.6 (6.5-8.0) g/dL Albumin 4.0 (3.5-5.0) g/dL 01/17/22 01/17/22 Range/Units 11:31 12:43 WBC (4.8-10.8) X10*3/uL RBC (4.60-5.80) X10*6/uL Hgb (14.0-18.0) g/dl Hct (42.0-52.0) % MCV (80.0-98.0) fL MCH (27.0-33.0) pg MCHC (31.0-36.0) g/dl RDW (11.0-16.0) % Plt Count (160-400) X10*3/uL MPV (9.4-12.4) fL Immature Gran % (Auto) (0.0-0.4) % Neut % (Auto) (45-73) % Lymph % (Auto) (20-40) % Stanton % (Auto) (2-11) % Eos % (Auto) (0-4) % Baso % (Auto) (0-2) % Lymph # (Auto) (1.2-4.9) X10*3/uL Stanton # (Auto) (0.1-1.2) X10*3/uL Eos # (Auto) (0.0-0.4) X10*3/uL Baso # (Auto) (0.0-0.2) X10*3/uL Abs Immat Gran (auto) (0.00-0.03) X10*3/uL Absolute Neuts (auto) (2.0-8.3) x10*3/uL Absolute Nucleated RBC (0.0-0.012) X10*3/uL Nucleated RBC % (auto) (0.0-0.2) /100WBC PT (10.0-13.1) SEC INR (0.9-1.1) Sodium (135-145) mmol/L Potassium (3.3-5.1) mmol/L Chloride (96-108) mmol/L Carbon Dioxide (22-29) mmol/L Anion Gap (12-20) BUN (9-16) mg/dL Creatinine (0.5-1.4) mg/dL Estim Creat Clear Calc Estimated GFR Random Glucose (60-115) mg/dL Lactic Acid 0.8 (0.5-2.0) mmol/L Calcium (8.4-10.2) mg/dL Total Bilirubin (0.0-1.0) mg/dL Direct Bilirubin (0.0-0.5) mg/dL AST (5-37) U/L ALT (0-40) U/L Alkaline Phosphatase (39-117) U/L Troponin I High Sens 7.2 (<3.5-35.0) ng/L Total Protein (6.5-8.0) g/dL Albumin (3.5-5.0) g/dL Imaging Data Chest x-ray: Attestation: I personally reviewed and interpreted this imaging study as follows: Radiologist's impression: TECHNIQUE: 2 views of the chest were obtained. FINDINGS: The lungs are clear. There are no pleural effusions. The heart and mediastinal structures are unremarkable. Right rib reconstruction plates are noted in place. Old healed multilevel left rib fractures. Old healed bilateral clavicular fractures are noted. XR/XR chest 2V IMPRESSION: No acute cardiopulmonary process. CT scan - head: Attestation: I personally reviewed and interpreted this imaging study as follows: Radiologist's impression: FINDINGS: There is no evidence of acute intracranial hemorrhage or territorial infarction. No abnormal mass effect or midline shift is seen. No extra-axial fluid collections are identified. There is prominence of ventricles, sulci, and cisterns. Stable old infarcts with loss of garvin-white matter interface is seen within the left parietal and occipital lobes, right vertex, and left vertex. Periventricular white matter low density is present. Old nondisplaced left skull fracture present. Mastoid air cells appear unremarkable. Paranasal sinuses demonstrate a small mucous retention cyst within the left maxillary sinus. ? CT/CT head/brain wo con IMPRESSION: No acute intracranial pathology. ? Multiple stable infarcts. ECG Data Attestation: I personally reviewed and interpreted this ECG as follows: ECG interpretation date: 01/17/22 ECG interpretation time: 11:45 Interpretation: EKG shows normal sinus rhythm with a rate of 66, normal [place], normal QRS, T-wave inversions in leads 1, aVL, V5 and V6 with Q-waves in leads 3 and AVF. This appears unchanged when compared to EKG from 01/03/2022 Discharge Plan Discharge Clinical Impression: Syncope, Acute on chronic kidney failure Patient Disposition: Admitted As Inpatient
[2022-01-17 11:36] LABS: MANUAL DIFF FLAG NO
[2022-01-17 11:38] LABS: Basophils Percent Auto 0.4 % (0-2); Eosinophils Absolute Auto 0.1 X10*3/uL (0.0-0.4); Hematocrit 29.7 % (42.0-52.0); Hemoglobin 9.5 g/dl (14.0-18.0); Imm Gran Abs Auto 0.02 X10*3/uL (0.00-0.03); Imm Gran Pct Auto 0.3 % (0.0-0.4); Lymphocytes Absolute Auto 0.9 X10*3/uL (1.2-4.9); Lymphocytes Percent Auto 12.4 % (20-40); Mean Corpuscular Hemoglobin 28.2 pg (27.0-33.0); Mean Corpuscular Volume 88.1 fL (80.0-98.0); Mean Platelet Volume 9.2 fL (9.4-12.4); Monocytes Absolute Auto 0.6 X10*3/uL (0.1-1.2); Monocytes Percent Auto 8.5 % (2-11); Neutrophils Absolute Auto 5.4 x10*3/uL (2.0-8.3); Neutrophils Percent Auto 77.4 % (45-73); Platelet Count 435 X10*3/uL (160-400); Red Blood Count 3.37 X10*6/uL (4.60-5.80); Red Cell Distribution Width 13.2 % (11.0-16.0); White Blood Count 6.9 X10*3/uL (4.8-10.8)
[2022-01-17 11:46] LABS: INTERNATIONAL NORM RATIO 2.9 (0.9-1.1); Prothrombin Time 34.9 SEC (10.0-13.1)
[2022-01-17 11:48] VITALS: BP 121/66; PULSE 66; RESP 16; O2SAT 100
[2022-01-17 11:50] LABS: Lactic Acid 0.8 mmol/L (0.5-2.0)
[2022-01-17 12:46] LABS: Alanine Aminotransferase 10 U/L (0-40); Alkaline Phosphatase 58 U/L (39-117); Anion Gap 15 (12-20); Aspartate Amino Transferase 14 U/L (5-37); Bilirubin Direct 0.3 mg/dL (0.0-0.5); Bilirubin Total 0.7 mg/dL (0.0-1.0); Blood Urea Nitrogen 75 mg/dL (9-16); Calcium 8.7 mg/dL (8.4-10.2); Carbon Dioxide 23 mmol/L (22-29); Chloride 103 mmol/L (96-108); Creatinine Clr Calc Pharmacy 22.4; Estimated Glomerular Filt Rate 20; Glucose Random 123 mg/dL (60-115); Potassium 4.5 mmol/L (3.3-5.1); Sodium 136 mmol/L (135-145); Total Protein 6.6 g/dL (6.5-8.0)
[2022-01-17 12:52] VITALS: BP 117/62; BP 124/65; PULSE 65; PULSE 68
[2022-01-17 12:54] VITALS: BP 130/69; PULSE 71
[2022-01-17] MEDS: 0.9 % Sodium Chloride 1,000 ML 999 ML IV (12:58)
[2022-01-17 13:07] LABS: Troponin-I High Sensitivity 7.2 ng/L (<3.5-35.0)
[2022-01-17 14:49] VITALS: BP 140/72; PULSE 70; RESP 20; TEMP 36.6; O2SAT 98
--- NOTE | 2022-01-17 14:51 | PM.IMHP ---
History of Present Illness Date of Service: 01/17/22 Chief Complaint: syncope 56M with pmh of TBI, 2 times renal transplant, now CKD IV, DM, epilepsy, sent in from [facility] initially for report of convulsions. patient is a poor historian and hisotry provided by SNF and ED. initially, thought to have been breakthrough seizure, however, when ED called nursing staff, they stated that patient went outside in severe heat to smoke and came back in diaphoretic, vomiting, and briefly syncopized without injury, LOC was very brief, denied convulsions. in ED noted to be relatively hypotensive, sbp 101, jewel on CKD IV - creatinine 3.28, form baseline around 2.6. Review of Systems Review of Systems: Yes Unobtainable due to mental status PMFSH Medical History Acute CVA (cerebrovascular accident) Aphasia Cerebral infarct CKD (chronic kidney disease) Depression Encephalopathy End stage renal disease HTN (hypertension) Hyperlipemia Hypothyroid Immunosuppressed status Intracerebral hemorrhage Malignant neuroleptic syndrome Renal transplant disorder Type 1 diabetes Wernicke's fluent aphasia Family History Other Hypertension Surgical History Kidney replaced by transplant Social History Household Members: None and Other Housing: Long Term Do you presently have visiting nurse or other home services: No Unable to assess alcohol history related to: Unknown Alcohol intake: never Patient Tobacco Use Status: Tobacco use Unknown Advance Directives: No Advance Directives Information Provided: Yes service: No Current occupational status: disabled Meds Allergies Allergy/AdvReac Type Severity Reaction Status Date / Time No Known Allergies Allergy Verified 01/01/22 20:47 Active Medications: Current Medications Aspirin (Aspirin Enteric Coated 81 Mg Tablet.Dr) 81 mg PO DAILY [place] Atorvastatin Calcium (Atorvastatin Calcium 40 Mg Tablet) 40 mg PO BEDTIME [place] Carvedilol (Carvedilol 12.5 Mg Tablet) 12.5 mg PO BID [place]; Protocol Dextrose (Dextrose 50 % 25 Gm/50 Ml Syringe) 25 gm IVPUSH Q15M PRN; Protocol PRN Reason: per Hypoglycemia Standing Ord. Glucose (Glucose Gel 15 Gm Gel..Gram.) 15 gm PO Q15M PRN; Protocol PRN Reason: per Hypoglycemia Standing Ord. Sodium Chloride (Ns) 1,000 mls @ 75 mls/hr IVCONT .[id number] [facility] Insulin Glargine (Insulin Glargine,Hum.Rec.Anlog 100 Unit/Ml 10 Ml Vial) 18 unit SUBCUT BEDTIME [facility] Insulin Human Lispro (Insulin Lispro 100 Unit/Ml 3 Ml Vial) 0 unit SUBCUT QIDACHS [facility]; Protocol Levetiracetam (Levetiracetam 500 Mg Tablet) 500 mg PO BID [facility] Levothyroxine Sodium (Levothyroxine Sodium 75 Mcg Tablet) 75 mcg PO DAILY@0600 [facility] Mycophenolate Sodium (Mycophenolate Sodium 180 Mg Tablet.Dr) 540 mg PO BID [facility] Pharmacy Consult (Consult Rx Perform Med Rec) 1 each MISCELLANE ONCE PRN PRN Reason: Consult order Tacrolimus (Tacrolimus 1 Mg Capsule) 2 mg PO BID [facility] Warfarin Sodium (Warfarin Sodium 3 Mg Tablet) 3 mg PO DAILY@1800 [facility] Home Medications Medication Instructions Recorded Confirmed Last Taken Type albuterol sulfate 90 mcg/actuation 2 puff PO QID PRN wheezing 10/24/21 01/17/22 Unknown History aerosol inhaler (ProAir HFA) aspirin 81 mg tablet,delayed 81 mg PO DAILY 10/24/21 01/17/22 Unknown History release atorvastatin 40 mg tablet 40 mg PO BEDTIME 10/24/21 01/17/22 Unknown History carvedilol 12.5 mg tablet 1 tab PO BID 10/24/21 01/17/22 Unknown History furosemide 40 mg tablet 40 mg PO DAILY 10/24/21 01/17/22 Unknown History hydralazine 25 mg tablet 1 tab PO TID 10/24/21 01/17/22 Unknown History insulin glargine 100 unit/mL 18 unit subcut BEDTIME 10/24/21 01/17/22 Unknown History subcutaneous solution (Lantus U-100 Insulin) insulin lispro 100 unit/mL 1 sliding scale dose subcut 10/24/21 01/17/22 Unknown History subcutaneous solution USEASDIRECTD levetiracetam 500 mg tablet 500 mg PO BID 10/24/21 01/17/22 Unknown History levothyroxine 75 mcg tablet 1 tab PO DAILY 10/24/21 01/17/22 Unknown History mycophenolate sodium 180 mg 3 tab PO Q12H 10/24/21 01/17/22 Unknown History tablet,delayed release tacrolimus 1 mg capsule, 2 mg PO BEDTIME 10/24/21 01/17/22 Unknown History immediate-release tacrolimus 1 mg capsule, 2 mg PO DAILY 10/24/21 01/17/22 Unknown History immediate-release warfarin 3 mg tablet 3 mg PO DAILY@1800 01/01/22 01/17/22 Unknown History Physical Exam Vital Signs and Narrative: Vital Signs: Last Vital Signs Temp 97.6 F 01/17/22 10:31 Pulse 71 01/17/22 12:54 Resp 16 01/17/22 11:48 BP 130/69 01/17/22 12:54 Pulse Ox 100 01/17/22 11:48 O2 Del Method 01/17/22 11:48 BMI result Body Mass Index 25.8 General: no acute distress HEENT: atraumatic Neck: normal to visual inspection CVS: S1, S2, RRR Resp: CTA bilateral Chest: non tender GI: soft, non tender, non distended : no CVA tenderness Skin: no rashes Extremities: no edema Neuro: Oriented X1, mild left facial droop Psych: hyper, confused, agitated Results Labs CBC and Chem 7: 01/17/22 11:31 01/17/22 11:31 Labs: Laboratory Results - last 24 hr 01/17/22 01/17/22 01/17/22 11:31 11:31 11:31 MCV 88.1 MCH 28.2 MCHC 32.0 RDW 13.2 Plt Count 435 H D MPV 9.2 L Immature Gran % (Auto) 0.3 Neut % (Auto) 77.4 H Lymph % (Auto) 12.4 L [place] % (Auto) 8.5 Eos % (Auto) 1.0 Baso % (Auto) 0.4 Lymph # (Auto) 0.9 L [place] # (Auto) 0.6 Eos # (Auto) 0.1 Baso # (Auto) 0.0 Abs Immat Gran (auto) 0.02 Absolute Neuts (auto) 5.4 Absolute Nucleated RBC 0.000 Nucleated RBC % (auto) 0.0 PT 34.9 H INR 2.9 H Anion Gap 15 Estim Creat Clear Calc 22.4 Estimated GFR 20 Random Glucose 123 H D Lactic Acid Calcium 8.7 Total Bilirubin 0.7 Direct Bilirubin 0.3 AST 14 D ALT 10 Alkaline Phosphatase 58 Troponin I High Sens Total Protein 6.6 Albumin 4.0 01/17/22 01/17/22 11:31 12:43 MCV MCH MCHC RDW Plt Count MPV Immature Gran % (Auto) Neut % (Auto) Lymph % (Auto) [place] % (Auto) Eos % (Auto) Baso % (Auto) Lymph # (Auto) [place] # (Auto) Eos # (Auto) Baso # (Auto) Abs Immat Gran (auto) Absolute Neuts (auto) Absolute Nucleated RBC Nucleated RBC % (auto) PT INR Anion Gap Estim Creat Clear Calc Estimated GFR Random Glucose Lactic Acid 0.8 Calcium Total Bilirubin Direct Bilirubin AST ALT Alkaline Phosphatase Troponin I High Sens 7.2 Total Protein Albumin Imaging Radiologist's Impressions: Impressions Chest X-Ray 01/17/22 12:05 IMPRESSION: No acute cardiopulmonary process. Head CT 01/17/22 12:26 IMPRESSION: No acute intracranial pathology. Multiple stable infarcts. Assessment and Plan (1) Syncope: Status: Acute (2) Acute on chronic kidney failure: Status: Acute Plan 56M presented with syncope syncope suspect dehydration related to hot weather, diuretics, antihypertensives vs vasovagal will hold lasix, hydralazine, hydrate, monitor jewel on CKD IV in renal transplant patient ivf, monitor bmp, nephro eval, antirejection meds history of suspect cardioembolic cva conitnue couamdin, goal inr 2-3, monitor hfpef hypovolemic, holding lasix DM basal bolus insulin, monitor pocs epilepsy keppra dvt prophylaxis - on coumadin dnr/dni patient with significant JEWEL at risk due to CKD and renal transplant status, therefore, expected to require atleast 2 midnights in hospital Quality Stroke Does the patient have a stroke diagnosis?: No VTE Prior VTE?: No VTE Risk Level:: Medical - moderate - high VTE Device Contraindication: Treatment Not Indicated VTE Drug Contraindication: N/A - Med Ordered
[2022-01-17] MEDS: diazePAM 10 MG/2 ML CARTRIDGE 2.5 MG IVPUSH (15:19)
--- NOTE | 2022-01-17 15:55 | PC.NURSE ---
PATIENT REFUSED TO CHANGE INTO HOSPITAL ATTIRE ,RN AWARE .
[2022-01-17 15:58] LABS: Glucose, Whole Blood 170 mg/dL (60-115)
--- NOTE | 2022-01-17 15:59 | PC.NURSE ---
patient ask for a ham sandwich and shani kim .
[2022-01-17 16:16] LABS: Troponin-I High Sensitivity 7.8 ng/L (<3.5-35.0)
[2022-01-17 16:18] LABS: COVID-19 Test Negative (Negative); IDNOW Serial# 16C4AD1C
[2022-01-17 17:23] LABS: Appearance Urine CLEAR; Color Urine YELLOW; Glucose Urine UA NEG (NEG); Leukocyte Esterase Urine NEG (NEG); Nitrite Urine NEG (NEG); Urine Blood NEG (NEG); Urine Ketones NEG (NEG); Urine Protein NEG (NEG-TRACE)
[2022-01-17] MEDS: Warfarin Sodium 3 MG TABLET PO (18:31)
--- NOTE | 2022-01-17 19:53 | PC.NURSE ---
PATIENT WAS ASSISTED WITH AMBULATION WITH 1 ASST ,PATIENT VOIDED LARGE AMOUNT OF URINE .
[2022-01-17 19:54] VITALS: BP 156/68; PULSE 73; RESP 16; TEMP 36.9; O2SAT 98
--- NOTE | 2022-01-17 19:54 | PC.NURSE ---
Patient very upset because he was sent to this [facility], patient wants to be transferred to [facility]. senior care contacted to make sure patient has no health care proxy, power of regulatory attorney and is able to make his own decisions.
--- NOTE | 2022-01-17 20:08 | PC.NURSE ---
Assumed care of pt at 1900. Pt does not want to leave here and says he is leaving if he doesn't get sent to [facility]. Called [facility] and waiting on callback to confirm whether or not he is able to make his own medical decisions.
--- NOTE | 2022-01-17 20:24 | PC.NURSE ---
Zachary, pt's son, called to inform that he is his health care proxy. I explained to him that without a copy we cannot keep him here against his wishes legally. Pt asked me to call [facility] again to get the copy. I informed him that I requested a copy from Lyn and she was unable to find said copy. He requested that we get the copy from [facility] and I informed him that it was his responsibility to get the copy from [facility]. The conversation abruptly ended as Zachary hung up while I was trying to explain HIPPA. Right after I called [facility] and spoke to Lyn to see if she happened to find the copy of the health care proxy. She did not. She continued to tell me he could not leave on his own. I informed her that by law [facility] cannot keep him against his wishes without a copy of the health care proxy. She said she would contact the database administrator to see if they could coordinate a transport for him to go back to [facility]. I asked pt if he would be acceptable for him to be picked up to go back to [facility]. He said that was fine. Currently waiting for Lyn from [facility] to get back to me on whether or not a ride ely be provided for pt to go back to [facility].
[2022-01-17 21:01] LABS: Glucose, Whole Blood 538 mg/dL (60-115)
[2022-01-17] MEDS: Atorvastatin Calcium 40 MG TABLET PO (22:37)
[2022-01-17] MEDS: carvediloL 12.5 MG TABLET PO (22:37)
[2022-01-17] MEDS: diphenhydrAMINE HCL 25 MG TABLET PO (22:37)
[2022-01-17] MEDS: levETIRAcetam 500 MG TABLET PO (22:37)
[2022-01-17] MEDS: Mycophenolate Sodium 180 MG TABLET.DR 540 MG PO (22:37)
[2022-01-17] MEDS: Tacrolimus 1 MG CAPSULE 2 MG PO (22:37)
[2022-01-17] MEDS: Insulin Lispro 100 UNIT/ML 3 ML VIAL SUBCUT (22:39)
[2022-01-18] VITALS (8 sets, daily range): BP systolic 102–151; BP diastolic 49–73; PULSE 67–77; RESP 14–18; TEMP 36.1–36.5; O2SAT 96–100
[2022-01-18] MEDS: 0.9 % Sodium Chloride Flush 3 ML SYRINGE IVFLUSH ×4 (01:30→20:52)
[2022-01-18 01:38] LABS: Glucose, Whole Blood 419 mg/dL (60-115)
[2022-01-18] MEDS: Insulin Lispro 100 UNIT/ML 3 ML VIAL SUBCUT ×2 (01:48→17:03)
--- NOTE | 2022-01-18 01:57 | PC.NURSE ---
PT refused iv fluids he said he will drink water, lantus insulin, also refused seizure precautions noted ambulating in room gait steady. md notified for [id number] CELESTIN to give 10 units lispro insulin unscheduled sliding scale .
[2022-01-18] MEDS: Levothyroxine Sodium 75 MCG TABLET PO (06:02)
[2022-01-18 06:46] LABS: Hematocrit 26.9 % (42.0-52.0); Hemoglobin 8.7 g/dl (14.0-18.0); Mean Corpuscular HGB Conc 32.3 g/dl (31.0-36.0); Mean Corpuscular Hemoglobin 28.3 pg (27.0-33.0); Mean Corpuscular Volume 87.6 fL (80.0-98.0); Platelet Count 428 X10*3/uL (160-400); Red Blood Count 3.07 X10*6/uL (4.60-5.80); Red Cell Distribution Width 13.2 % (11.0-16.0); White Blood Count 5.2 X10*3/uL (4.8-10.8)
[2022-01-18 06:52] LABS: Prothrombin Time 35.8 SEC (10.0-13.1)
[2022-01-18 08:08] LABS: Glucose, Whole Blood 62 mg/dL (60-115)
[2022-01-18 08:32] LABS: Anion Gap 12 (12-20); Blood Urea Nitrogen 70 mg/dL (9-16); Calcium 8.5 mg/dL (8.4-10.2); Carbon Dioxide 23 mmol/L (22-29); Chloride 106 mmol/L (96-108); Creatinine Clr Calc Pharmacy 25.1; Estimated Glomerular Filt Rate 22; Glucose Fasting 45 mg/dL (60-99); Potassium 4.2 mmol/L (3.3-5.1); Sodium 137 mmol/L (135-145)
[2022-01-18] MEDS: Dextrose 50 % 25 GM/50 ML SYRINGE IVPUSH (08:57)
[2022-01-18] MEDS: Aspirin Enteric Coated 81 MG TABLET.DR PO (09:05)
[2022-01-18] MEDS: Mycophenolate Sodium 180 MG TABLET.DR 540 MG PO ×2 (09:05→20:45)
[2022-01-18] MEDS: Tacrolimus 1 MG CAPSULE 2 MG PO ×2 (09:05→20:46)
[2022-01-18] MEDS: levETIRAcetam 500 MG TABLET PO ×2 (09:05→20:45)
[2022-01-18] MEDS: carvediloL 12.5 MG TABLET PO ×2 (09:06→20:45)
[2022-01-18 09:28] LABS: Glucose, Whole Blood 355 mg/dL (60-115)
--- NOTE | 2022-01-18 10:36 | HO.PM.IMPN ---
Subjective Subjective Date of Service: 01/18/22 Interval History: cc: syncope interval history: no complaints Cardiovascular Cardiovascular: Reports no additional cardiovascular complaints Respiratory Respiratory: Reports no additional respiratory complaints Physical Exam Vital Signs: Vital Signs: Last Vital Signs Temp 97.1 F 01/18/22 07:51 Pulse 67 01/18/22 07:51 Resp 14 01/18/22 07:51 BP 121/73 01/18/22 07:51 Pulse Ox 100 01/18/22 07:51 O2 Del Method 01/18/22 07:51 BMI result Body Mass Index 25.8 General: Alert, no acute distress Resp: CTA bilateral, no accessory muscles used CVS: S1,S2,RRR GI: soft, non tender, non distended Neuro: motor grossly intact, alert Psych: appropriate affect, impaired insight Objective Data Active Medications Acetaminophen (Acetaminophen 325 Mg Tablet) 650 mg PO Q6H PRN PRN Reason: Pain, Mild (Pain Scale 1-3) Aspirin (Aspirin Enteric Coated 81 Mg Tablet.) 81 mg PO DAILY [facility] Last Admin: 01/18/22 09:05 Dose: 81 mg Documented By: JORGITO Atorvastatin Calcium (Atorvastatin Calcium 40 Mg Tablet) 40 mg PO BEDTIME [facility] Last Admin: 01/17/22 22:37 Dose: 40 mg Documented By: KARLA Carvedilol (Carvedilol 12.5 Mg Tablet) 12.5 mg PO BID [facility]; Protocol Last Admin: 01/18/22 09:06 Dose: 12.5 mg Documented By: JORGITO Dextrose (Dextrose 50 % 25 Gm/50 Ml Syringe) 25 gm IVPUSH Q15M PRN; Protocol PRN Reason: per Hypoglycemia Standing Ord. Last Admin: 01/18/22 08:57 Dose: 25 gm Documented By: JORGITO Glucose (Glucose Gel 15 Gm Gel..Gram.) 15 gm PO Q15M PRN; Protocol PRN Reason: per Hypoglycemia Standing Ord. Sodium Chloride (Ns) 1,000 mls @ 75 mls/hr IVCONT .[id number] [facility] Last Admin: 01/18/22 05:59 Dose: Not Given Documented By: KARLA Non-Admin Reason: Patient Refused Insulin Glargine (Insulin Glargine,Hum.Rec.Anlog 100 Unit/Ml 10 Ml Vial) 10 unit SUBCUT BEDTIME [facility] Insulin Human Lispro (Insulin Lispro 100 Unit/Ml 3 Ml Vial) 0 unit SUBCUT QIDACHS [facility]; Protocol Last Admin: 01/18/22 09:00 Dose: Not Given Documented By: JORGITO Non-Admin Reason: No Insulin Coverage Levetiracetam (Levetiracetam 500 Mg Tablet) 500 mg PO BID [facility] Last Admin: 01/18/22 09:05 Dose: 500 mg Documented By: JORGITO Levothyroxine Sodium (Levothyroxine Sodium 75 Mcg Tablet) 75 mcg PO DAILY@0600 [facility] Last Admin: 01/18/22 06:02 Dose: 75 mcg Documented By: KARLA Mycophenolate Sodium (Mycophenolate Sodium 180 Mg Tablet.) 540 mg PO BID [facility] Last Admin: 01/18/22 09:05 Dose: 540 mg Documented By: JORGITO Pharmacy Consult (Consult Rx Perform Med Rec) 1 each MISCELLANE ONCE PRN PRN Reason: Consult order Sodium Chloride (0.9 % Sodium Chloride Flush 3 Ml Syringe) 3 ml IVFLUSH QSHIFT [facility] Last Admin: 01/18/22 09:01 Dose: 3 ml Documented By: JORGITO Tacrolimus (Tacrolimus 1 Mg Capsule) 2 mg PO BID [facility] Last Admin: 01/18/22 09:05 Dose: 2 mg Documented By: JORGITO Warfarin Sodium (Warfarin Sodium 3 Mg Tablet) 3 mg PO DAILY@1800 [facility] Last Admin: 01/17/22 18:31 Dose: 3 mg Documented By: ENEIDA Labs CBC & Chem 7: 01/18/22 05:48 01/18/22 05:48 Labs: Laboratory Results - last 24 hr 01/17/22 01/17/22 01/17/22 11:31 11:31 11:31 MCV 88.1 MCH 28.2 MCHC 32.0 RDW 13.2 Plt Count 435 H D MPV 9.2 L Immature Gran % (Auto) 0.3 Neut % (Auto) 77.4 H Lymph % (Auto) 12.4 L [place] % (Auto) 8.5 Eos % (Auto) 1.0 Baso % (Auto) 0.4 Lymph # (Auto) 0.9 L [place] # (Auto) 0.6 Eos # (Auto) 0.1 Baso # (Auto) 0.0 Abs Immat Gran (auto) 0.02 Absolute Neuts (auto) 5.4 Absolute Nucleated RBC 0.000 Nucleated RBC % (auto) 0.0 PT 34.9 H INR 2.9 H Anion Gap 15 Estim Creat Clear Calc 22.4 Estimated GFR 20 POC Glucose Random Glucose 123 H D Fasting Glucose Lactic Acid Calcium 8.7 Total Bilirubin 0.7 Direct Bilirubin 0.3 AST 14 D ALT 10 Alkaline Phosphatase 58 Troponin I High Sens Total Protein 6.6 Albumin 4.0 Urine Color Urine Appearance Urine pH Ur Specific [place] Urine Protein Urine Glucose (UA) Urine Ketones Urine Blood Urine Nitrite Ur Leukocyte Esterase COVID-19 ([facility]ACK) COVID-19 Clin Com 01/17/22 01/17/22 01/17/22 11:31 12:43 15:42 MCV MCH MCHC RDW Plt Count MPV Immature Gran % (Auto) Neut % (Auto) Lymph % (Auto) [place]ack[place] % (Auto) Eos % (Auto) Baso % (Auto) Lymph # (Auto) [place] # (Auto) Eos # (Auto) Baso # (Auto) Abs Immat Gran (auto) Absolute Neuts (auto) Absolute Nucleated RBC Nucleated RBC % (auto) PT INR Anion Gap Estim Creat Clear Calc Estimated GFR POC Glucose Random Glucose Fasting Glucose Lactic Acid 0.8 Calcium Total Bilirubin Direct Bilirubin AST ALT Alkaline Phosphatase Troponin I High Sens 7.2 Total Protein Albumin Urine Color Urine Appearance Urine pH Ur Specific [place] Urine Protein Urine Glucose (UA) Urine Ketones Urine Blood Urine Nitrite Ur Leukocyte Esterase COVID-19 (ZACK) Negative COVID-19 Clin Com See Note 01/17/22 01/17/22 01/17/22 15:42 15:43 16:59 MCV MCH MCHC RDW Plt Count MPV Immature Gran % (Auto) Neut % (Auto) Lymph % (Auto) [place] % (Auto) Eos % (Auto) Baso % (Auto) Lymph # (Auto) [place] # (Auto) Eos # (Auto) Baso # (Auto) Abs Immat Gran (auto) Absolute Neuts (auto) Absolute Nucleated RBC Nucleated RBC % (auto) PT INR Anion Gap Estim Creat Clear Calc Estimated GFR POC Glucose 170 H Random Glucose Fasting Glucose Lactic Acid Calcium Total Bilirubin Direct Bilirubin AST ALT Alkaline Phosphatase Troponin I High Sens 7.8 Total Protein Albumin Urine Color YELLOW Urine Appearance CLEAR Urine pH 6.0 Ur Specific [place] 1.020 Urine Protein NEG Urine Glucose (UA) NEG Urine Ketones NEG Urine Blood NEG Urine Nitrite NEG Ur Leukocyte Esterase NEG COVID-19 (ZACK) COVID-19 Clin Com 01/17/22 01/18/22 01/18/22 20:54 01:30 05:48 MCV 87.6 MCH 28.3 MCHC 32.3 RDW 13.2 Plt Count 428 H MPV 10.0 Immature Gran % (Auto) Neut % (Auto) Lymph % (Auto) [place] % (Auto) Eos % (Auto) Baso % (Auto) Lymph # (Auto) [place] # (Auto) Eos # (Auto) Baso # (Auto) Abs Immat Gran (auto) Absolute Neuts (auto) Absolute Nucleated RBC 0.000 Nucleated RBC % (auto) 0.0 PT INR Anion Gap Estim Creat Clear Calc Estimated GFR POC Glucose 538 H* 419 H* Random Glucose Fasting Glucose Lactic Acid Calcium Total Bilirubin Direct Bilirubin AST ALT Alkaline Phosphatase Troponin I High Sens Total Protein Albumin Urine Color Urine Appearance Urine pH Ur Specific [place] Urine Protein Urine Glucose (UA) Urine Ketones Urine Blood Urine Nitrite Ur Leukocyte Esterase COVID-19 (ZACK) COVID-19 [employer] 01/18/22 01/18/22 01/18/22 05:48 05:48 07:49 MCV MCH MCHC RDW Plt Count MPV Immature Gran % (Auto) Neut % (Auto) Lymph % (Auto) [place] % (Auto) Eos % (Auto) Baso % (Auto) Lymph # (Auto) [place] # (Auto) Eos # (Auto) Baso # (Auto) Abs Immat Gran (auto) Absolute Neuts (auto) Absolute Nucleated RBC Nucleated RBC % (auto) PT 35.8 H INR 3.0 H Anion Gap 12 Estim Creat Clear Calc 25.1 Estimated GFR 22 POC Glucose 62 Random Glucose Fasting Glucose 45 L* Lactic Acid Calcium 8.5 Total Bilirubin Direct Bilirubin AST ALT Alkaline Phosphatase Troponin I High Sens Total Protein Albumin Urine Color Urine Appearance Urine pH Ur Specific [place] Urine Protein Urine Glucose (UA) Urine Ketones Urine Blood Urine Nitrite Ur Leukocyte Esterase COVID-19 (ZACK) COVID-19 Clin Com 01/18/22 09:24 MCV MCH MCHC RDW Plt Count MPV Immature Gran % (Auto) Neut % (Auto) Lymph % (Auto) [place] % (Auto) Eos % (Auto) Baso % (Auto) Lymph # (Auto) [place] # (Auto) Eos # (Auto) Baso # (Auto) Abs Immat Gran (auto) Absolute Neuts (auto) Absolute Nucleated RBC Nucleated RBC % (auto) PT INR Anion Gap Estim Creat Clear Calc Estimated GFR POC Glucose 355 H* Random Glucose Fasting Glucose Lactic Acid Calcium Total Bilirubin Direct Bilirubin AST ALT Alkaline Phosphatase Troponin I High Sens Total Protein Albumin Urine Color Urine Appearance Urine pH Ur Specific [place] Urine Protein Urine Glucose (UA) Urine Ketones Urine Blood Urine Nitrite Ur Leukocyte Esterase COVID-19 (ZACK) COVID-19 Clin Com Assessment and Plan (1) Syncope: Status: Acute Plan 56M presented with syncope syncope suspect dehydration related to hot weather, diuretics, antihypertensives vs vasovagal holding lasix, hydralazine, hydrating, monitor possible hypoglycemic event as patient has DM and has been having labile sugars with both hyperglycemia and hyoglycemia monitor on low dose insulin sliding scale johana on CKD IV in renal transplant patient ivf, monitor bmp, nephro eval, antirejection meds improving history 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
[2022-01-18] MEDS: Insulin Lispro 100 UNIT/ML 3 ML VIAL 10 UNIT SUBCUT (11:34)
[2022-01-18 11:54] LABS: Glucose, Whole Blood 531 mg/dL (60-115)
--- NOTE | 2022-01-18 14:56 | PM.EVENT ---
Event Note Date of Service: 01/18/22 Event Note: pt seen and examined full consult to follow
[2022-01-18 15:43] LABS: Glucose, Whole Blood 430 mg/dL (60-115)
[2022-01-18] MEDS: Warfarin Sodium 3 MG TABLET PO (17:03)
[2022-01-18 20:26] LABS: Glucose, Whole Blood 190 mg/dL (60-115)
[2022-01-18] MEDS: Atorvastatin Calcium 40 MG TABLET PO (20:45)
--- NOTE | 2022-01-18 22:48 | PM.EVENT ---
Event Note Date of Service: 01/18/22 Event Note: Chart reviewed Pt seen and examined 1. JEWEL 2. CKD 4 3. s/p Renal transplant Agree with IVF Continue immunosupresive meds No Diuretics Cr is better
[2022-01-19 00:20] LABS: Glucose, Whole Blood 352 mg/dL (60-115)
[2022-01-19] MEDS: Insulin Lispro 100 UNIT/ML 3 ML VIAL SUBCUT ×5 (00:41→20:46)
[2022-01-19 03:18] LABS: Glucose, Whole Blood 385 mg/dL (60-115)
[2022-01-19 04:00] VITALS: BP 129/63; PULSE 77; RESP 16; TEMP 36.3; O2SAT 97
[2022-01-19] MEDS: Levothyroxine Sodium 75 MCG TABLET PO (05:23)
[2022-01-19 05:28] LABS: Glucose, Whole Blood 325 mg/dL (60-115)
[2022-01-19 06:42] LABS: Hematocrit 25.6 % (42.0-52.0); Hemoglobin 8.3 g/dl (14.0-18.0); Mean Corpuscular HGB Conc 32.4 g/dl (31.0-36.0); Mean Corpuscular Hemoglobin 28.2 pg (27.0-33.0); Mean Corpuscular Volume 87.1 fL (80.0-98.0); Mean Platelet Volume 10.4 fL (9.4-12.4); Platelet Count 395 X10*3/uL (160-400); Red Blood Count 2.94 X10*6/uL (4.60-5.80); Red Cell Distribution Width 13.3 % (11.0-16.0); White Blood Count 6.3 X10*3/uL (4.8-10.8)
[2022-01-19 06:49] LABS: INTERNATIONAL NORM RATIO 4.8 (0.9-1.1); Prothrombin Time 59.3 SEC (10.0-13.1)
[2022-01-19 07:27] LABS: Glucose, Whole Blood 347 mg/dL (60-115)
[2022-01-19 07:44] LABS: Anion Gap 13 (12-20); Blood Urea Nitrogen 74 mg/dL (9-16); Calcium 8.4 mg/dL (8.4-10.2); Carbon Dioxide 19 mmol/L (22-29); Chloride 102 mmol/L (96-108); Creatinine Clr Calc Pharmacy 24.8; Estimated Glomerular Filt Rate 22; Potassium 4.3 mmol/L (3.3-5.1); Sodium 130 mmol/L (135-145)
[2022-01-19 08:00] VITALS: BP 132/63; PULSE 75; RESP 16; TEMP 36; O2SAT 99
[2022-01-19 08:10] LABS: Glucose Fasting 346 mg/dL (60-99)
[2022-01-19] MEDS: carvediloL 12.5 MG TABLET PO ×2 (08:16→20:46)
[2022-01-19] MEDS: Tacrolimus 1 MG CAPSULE 2 MG PO ×2 (08:16→20:46)
[2022-01-19] MEDS: levETIRAcetam 500 MG TABLET PO ×2 (08:17→20:46)
[2022-01-19] MEDS: 0.9 % Sodium Chloride Flush 3 ML SYRINGE IVFLUSH (08:17)
[2022-01-19] MEDS: Aspirin Enteric Coated 81 MG TABLET.DR PO (08:17)
[2022-01-19] MEDS: Mycophenolate Sodium 180 MG TABLET.DR 540 MG PO ×2 (08:17→20:46)
--- NOTE | 2022-01-19 08:53 | MHC.CM.PN ---
T/W SPOKE WITH PATIENT'S VANTAGE OF NEVAEH DURBIN RN ([phone]) ACCORDING TO NEVAEH, NO HCP OR GUARDIANSHIP HAS BEEN ON FILE FOR PATIENT. HE HAS BEEN A RESIDENT AT THE FACILITY SINCE 10/08/2021. NEVAEH REPORTS THAT THIS IS NOT THE FIRST TIME THAT THE PATIENT HAS HAD A SYNCOPAL EPISODE. SHE FEELS STRONGLY THAT PATIENT IS NOT SAFE TO BE ON HIS OWN; HOWEVER, REALIZES THE BARRIERS POSED. CASE MANAGEMENT TO ATTEMPT TO FIND A HCP AND/OR SPEAK TO FAMILY ABOUT GUARDIANSHIP
--- NOTE | 2022-01-19 10:00 | P.DS_ITS ---
DS: Providers Provider Date of Service: 01/21/22 Date of admission: 01/17/22 14:49 Primary care physician: Unknown Physician Consults: 01/17/22 14:41 Consult to Nephrology Routine Consulting Provider: Rashad Harrell Reason for consultation: transplant, johana/ckd DS: Diagnosis Discharge Diagnosis (1) Syncope: Status: Acute DS: Summary Hospital Course Hospital Course: from initial hpi: Chief Complaint: syncope 56M with pmh of TBI, 2 times renal transplant, now CKD IV, DM, epilepsy, sent in from [place] initially for report of convulsions. patient is a poor historian and hisotry provided by SNF and ED. initially, thought to have been breakthrough seizure, however, when ED called nursing staff, they stated that patient went outside in severe heat to smoke and came back in diaphoretic, vo miting, and briefly syncopized without injury, LOC was very brief, denied convulsions. in ED noted to be relatively hypotensive, sbp 101, johana on CKD IV - creatinine 3.28, form baseline around 2.6. hospital course: Patient was admitted for syncope suspected to be due to dehydration related to hot weather, diuretics, antihypertensives. His Lasix and hydralazine were held, he was given IV fluids, blood pressure improved and he had no further syncopal events. Course was complicated by acute kidney injury on CKD 4 in renal transplant patient. His creatinine improved with IV fluids he was continued on his anti rejection medications. First history of suspected cardioembolic CVA he was continued on Coumadin. For his CHF with preserved ejection fraction his Lasix was held due to hypovolemia, he is now euvolemic and can restart maintenance. For his epilepsy Keppra was continued. For patient's diabetes he was noted to have labile sugars, with hyper glycemic and hypoglycemic events, glucose is now more stable and should be followed up closely. Patient will be discharged back to [facility]. Time Spent with Patient Time attestation: Total time spent providing and/or coordinating discharge services: Discharge coordination time: Greater than 30 minutes Quality: Safe Use of Opioids Does Pt have an Active Cancer Diagnosis on the Problem List?: No Quality: Stroke Does the patient have a stroke diagnosis?: No Physical Exam Vital Signs: Vital Signs: Last Vital Signs Temp 96.8 F 01/19/22 08:00 Pulse 75 01/19/22 08:00 Resp 16 07/24/22 08:00 BP 132/63 01/19/22 08:00 Pulse Ox 99 01/19/22 08:00 O2 Del Method 01/19/22 08:00 BMI result Body Mass Index 25.8 General: Alert, no acute distress Resp: CTA bilateral, no accessory muscles used CVS: S1,S2,RRR GI: soft, non tender, non distended Neuro: motor grossly intact, alert Psych: appropriate affect, impaired insight DS: Data Data Completed and Pending Labs on day of discharge: Laboratory Results - last 24 hr 01/18/22 01/18/22 01/18/22 11:16 15:38 19:36 WBC RBC Hgb Hct MCV MCH MCHC RDW Plt Count MPV Absolute Nucleated RBC Nucleated RBC % (auto) PT INR Sodium Potassium Chloride Carbon Dioxide Anion Gap BUN Creatinine Estim Creat Clear Calc Estimated GFR POC Glucose 531 H* 430 H* 190 H Fasting Glucose Calcium 01/19/22 01/19/22 01/19/22 00:14 03:11 05:24 WBC RBC Hgb Hct MCV MCH MCHC RDW Plt Count MPV Absolute Nucleated RBC Nucleated RBC % (auto) PT 59.3 H INR 4.8 H Sodium Potassium Chloride Carbon Dioxide Anion Gap BUN Creatinine Estim Creat Clear Calc Estimated GFR POC Glucose 352 H* 385 H* Fasting Glucose Calcium 01/19/22 01/19/22 01/19/22 05:24 05:24 05:24 WBC 6.3 RBC 2.94 L Hgb 8.3 L Hct 25.6 L MCV 87.1 MCH 28.2 MCHC 32.4 RDW 13.3 Plt Count 395 MPV 10.4 Absolute Nucleated RBC 0.000 Nucleated RBC % (auto) 0.0 PT INR Sodium 130 L Potassium 4.3 Chloride 102 Carbon Dioxide 19 L Anion Gap 13 BUN 74 H Creatinine 2.96 H Estim Creat Clear Calc 24.8 Estimated GFR 22 POC Glucose 325 H Fasting Glucose 346 H D Calcium 8.4 01/19/22 07:24 WBC RBC Hgb Hct MCV MCH MCHC RDW Plt Count MPV Absolute Nucleated RBC Nucleated RBC % (auto) PT INR Sodium Potassium Chloride Carbon Dioxide Anion Gap BUN Creatinine Estim Creat Clear Calc Estimated GFR POC Glucose 347 H Fasting Glucose Calcium Discharge Plan Discharge Patient Disposition: [facility] Discharge Diagnosis: syncope Referrals: [facility] [place] [Outside] - 1 Week Ashley Mata MD [] - 1 Week Discharge Medications: Continued carvedilol 12.5 mg tablet 1 tab PO BID insulin glargine [Lantus U-100 Insulin] 100 unit/mL solution 18 unit subcut BEDTIME levothyroxine 75 mcg tablet 1 tab PO DAILY albuterol sulfate [ProAir HFA] 90 mcg/actuation HFA aerosol inhaler 2 puff PO QID PRN (Reason: wheezing) tacrolimus 1 mg capsule 2 mg PO DAILY mycophenolate sodium 180 mg tablet,delayed release (DR/EC) 3 tab PO Q12H furosemide 40 mg Tablet 40 mg PO DAILY Hold Instructions: Resume on 01/08/22. atorvastatin 40 mg Tablet 40 mg PO BEDTIME levetiracetam 500 mg Tablet 500 mg PO BID aspirin 81 mg Tablet,Delayed Release (Dr/Ec) 81 mg PO DAILY insulin lispro 100 unit/mL Solution 1 sliding scale dose SUBCUT USEASDIRECTD Rx Instructions: 151-200: 2, 201-250: 4 U, 251-300: 6 U, 301-350: 8U, 351-400: 10 tacrolimus 1 mg capsule 2 mg PO BEDTIME Held warfarin 3 mg Tablet 3 mg PO DAILY@1800 Hold Instructions: Resume on 01/20/22. inr 4.8, monitor and restart when <3 Discontinued hydralazine 25 mg tablet 1 tab PO TID Discharge Orders: Discharge Order (Routine); Ordered 01/21/22 Ordered By: Uli Su Diet: Diabetic diet Activity on Discharge: As tolerated Stand Alone Forms: Patient Portal Discharge page Care Plan Goals: recovery Health Concerns: syncope, elevated inr, labile sugars Plan of Treatment: hodl hydralazine, hold coumadin for now, monitor inr and restart when <3, monitor sugars closely Assessment: see above
--- NOTE | 2022-01-19 10:49 | MHC.CM.PN ---
PATIENT AGREEABLE TO ASSIGNING HIS TWO SONS (SHERIDAN AND MILTON) HCP AGENTS COMPLETED FORM SENT TO [facility] AND A COPY PLACED IN CHART. SONS EACH HAVE ONE COPY.
[2022-01-19 10:51] LABS: Glucose, Whole Blood 406 mg/dL (60-115)
--- NOTE | 2022-01-19 11:17 | HO.PM.IMPN ---
Subjective Subjective Date of Service: 01/19/22 Interval History: cc: syncope interval history: no complaints Cardiovascular Cardiovascular: Reports no additional cardiovascular complaints Respiratory Respiratory: Reports no additional respiratory complaints Physical Exam Vital Signs: Vital Signs: Last Vital Signs Temp 96.8 F 01/19/22 08:00 Pulse 75 01/19/22 08:00 Resp 16 01/19/22 08:00 BP 132/63 01/19/22 08:00 Pulse Ox 99 01/19/22 08:00 O2 Del Method 01/19/22 08:00 BMI result Body Mass Index 25.8 General: Alert, no acute distress Resp: CTA bilateral, no accessory muscles used CVS: S1,S2,RRR GI: soft, non tender, non distended Neuro: motor grossly intact, alert Psych: appropriate affect, impaired insight Objective Data Active Medications Acetaminophen (Acetaminophen 325 Mg Tablet) 650 mg PO Q6H PRN PRN Reason: Pain, Mild (Pain Scale 1-3) Aspirin (Aspirin Enteric Coated 81 Mg Tablet.) 81 mg PO DAILY [facility] Last Admin: 01/19/22 08:17 Dose: 81 mg Documented By: JORGITO Atorvastatin Calcium (Atorvastatin Calcium 40 Mg Tablet) 40 mg PO BEDTIME [facility] Last Admin: 01/18/22 20:45 Dose: 40 mg Documented By: KARLA Carvedilol (Carvedilol 12.5 Mg Tablet) 12.5 mg PO BID [facility]; Protocol Last Admin: 01/19/22 08:16 Dose: 12.5 mg Documented By: JORGITO Dextrose (Dextrose 50 % 25 Gm/50 Ml Syringe) 25 gm IVPUSH Q15M PRN; Protocol PRN Reason: per Hypoglycemia Standing Ord. Last Admin: 01/18/22 08:57 Dose: 25 gm Documented By: JORGITO Glucose (Glucose Gel 15 Gm Gel..Gram.) 15 gm PO Q15M PRN; Protocol PRN Reason: per Hypoglycemia Standing Ord. Sodium Chloride (Ns) 1,000 mls @ 75 mls/hr IVCONT .[id number] [facility] Last Admin: 01/19/22 05:24 Dose: Not Given Documented By: KARLA Non-Admin Reason: Patient Refused Insulin Glargine (Insulin Glargine,Hum.Rec.Anlog 100 Unit/Ml 10 Ml Vial) 10 unit SUBCUT BEDTIME [facility] Last Admin: 01/18/22 20:30 Dose: Not Given Documented By: KARLA Non-Admin Reason: Patient Refused Insulin Human Lispro (Insulin Lispro 100 Unit/Ml 3 Ml Vial) 0 unit SUBCUT QIDACHS [facility]; Protocol Last Admin: 01/19/22 08:16 Dose: 4 unit Documented By: JORGITO Levetiracetam (Levetiracetam 500 Mg Tablet) 500 mg PO BID [facility] Last Admin: 01/19/22 08:17 Dose: 500 mg Documented By: JORGITO Levothyroxine Sodium (Levothyroxine Sodium 75 Mcg Tablet) 75 mcg PO DAILY@0600 [facility] Last Admin: 01/19/22 05:23 Dose: 75 mcg Documented By: KARLA Mycophenolate Sodium (Mycophenolate Sodium 180 Mg Tablet.) 540 mg PO BID [facility] Last Admin: 01/19/22 08:17 Dose: 540 mg Documented By: JORGITO Pharmacy Consult (Consult Rx Perform Med Rec) 1 each MISCELLANE ONCE PRN PRN Reason: Consult order Sodium Chloride (0.9 % Sodium Chloride Flush 3 Ml Syringe) 3 ml IVFLUSH QSHIFT [facility] Last Admin: 01/19/22 08:17 Dose: 3 ml Documented By: JORGITO Tacrolimus (Tacrolimus 1 Mg Capsule) 2 mg PO BID [facility] Last Admin: 01/19/22 08:16 Dose: 2 mg Documented By: JORGITO Warfarin Sodium (Warfarin Sodium 3 Mg Tablet) 3 mg PO DAILY@1800 [facility] Last Admin: 01/18/22 17:03 Dose: 3 mg Documented By: JORGITO Labs CBC & Chem 7: 01/19/22 05:24 01/19/22 05:24 Labs: Laboratory Results - last 24 hr 01/18/22 01/18/22 01/18/22 11:16 15:38 19:36 MCV MCH MCHC RDW Plt Count MPV Absolute Nucleated RBC Nucleated RBC % (auto) PT INR Anion Gap Estim Creat Clear Calc Estimated GFR POC Glucose 531 H* 430 H* 190 H Fasting Glucose Calcium 01/19/22 01/19/22 01/19/22 00:14 03:11 05:24 MCV MCH MCHC RDW Plt Count MPV Absolute Nucleated RBC Nucleated RBC % (auto) PT 59.3 H INR 4.8 H Anion Gap Estim Creat Clear Calc Estimated GFR POC Glucose 352 H* 385 H* Fasting Glucose Calcium 01/19/22 01/19/22 01/19/22 05:24 05:24 05:24 MCV 87.1 MCH 28.2 MCHC 32.4 RDW 13.3 Plt Count 395 MPV 10.4 Absolute Nucleated RBC 0.000 Nucleated RBC % (auto) 0.0 PT INR Anion Gap 13 Estim Creat Clear Calc 24.8 Estimated GFR 22 POC Glucose 325 H Fasting Glucose 346 H D Calcium 8.4 01/19/22 01/19/22 07:24 10:47 MCV MCH MCHC RDW Plt Count MPV Absolute Nucleated RBC Nucleated RBC % (auto) PT INR Anion Gap Estim Creat Clear Calc Estimated GFR POC Glucose 347 H 406 H* Fasting Glucose Calcium Assessment and Plan (1) Syncope: Status: Acute Plan 56M presented with syncope syncope suspect dehydration related to hot weather, diuretics, antihypertensives vs vasovagal holding lasix, hydralazine, hydrating, monitor possible hypoglycemic event as patient has DM and has been having labile sugars with both hyperglycemia and hyoglycemia more hyperglycemic now, but seems sensitive to insulin, monitor on low dose insulin sliding scale johana on CKD IV in renal transplant patient ivf, monitor bmp, nephro eval, antirejection meds improving history of suspect cardioembolic cva continue couamdin, goal inr 2-3, monitor, currently supratherapeutic hfpef hypovolemic, holding lasix epilepsy keppra dvt prophylaxis - on coumadin dnr/dni reason for continued hospitalization: ivf, monitoring labile sugars Quality Stroke Does the patient have a stroke diagnosis?: No VTE Prior VTE?: No VTE Risk Level:: Medical - moderate - high VTE Device Contraindication: Treatment Not Indicated VTE Drug Contraindication: N/A - Med Ordered
--- NOTE | 2022-01-19 11:21 | MHC.CM.PN ---
PATIENT NEEDS HNE AUTH TO RETURN TO FACILITY LIAISON FROM [facility] STATES THAT NO COVERAGE AFTER 1000. ATTEMPT TO BE MADE TOMORROW MD PAM, AND SON/HCP SHERIDAN ([phone]) AWARE
[2022-01-19 11:55] VITALS: BP 118/64; PULSE 72; RESP 14; TEMP 36; O2SAT 99
--- NOTE | 2022-01-19 14:48 | PC.NURSE ---
Patient pulled out his IV, MD notified and will be left out.
[2022-01-19 16:39] VITALS: BP 110/59; PULSE 66; RESP 16; TEMP 36.1; O2SAT 100
[2022-01-19 16:51] LABS: Glucose, Whole Blood 199 mg/dL (60-115)
[2022-01-19 19:22] VITALS: BP 112/55; PULSE 73; RESP 16; TEMP 36.2; O2SAT 98
[2022-01-19 19:45] LABS: Glucose, Whole Blood 246 mg/dL (60-115)
[2022-01-19] MEDS: Atorvastatin Calcium 40 MG TABLET PO (20:46)
--- NOTE | 2022-01-19 21:07 | PM.PNNEP ---
Subjective Subjective Date of Service: 01/19/22 Interval history: cc: syncope High Sugars no complaints Physical Exam Vital Signs: Vital Signs: Last Vital Signs Temp 97.2 F 01/19/22 19:22 Pulse 73 01/19/22 19:22 Resp 16 01/19/22 19:22 BP 112/55 L 01/19/22 19:22 Pulse Ox 98 01/19/22 19:22 O2 Del Method 01/19/22 19:22 BMI result Body Mass Index 25.8 General: Alert, no acute distress Resp: CTA bilateral, no accessory muscles used CVS: S1,S2,RRR GI: soft, non tender, non distended Neuro: motor grossly intact, alert Psych: appropriate affect, impaired insight Objective Data Labs CBC & Chem 7: 01/19/22 05:24 01/19/22 05:24 Labs: Laboratory Results - last 24 hr 01/19/22 01/19/22 01/19/22 00:14 03:11 05:24 WBC RBC Hgb Hct MCV MCH MCHC RDW Plt Count MPV Absolute Nucleated RBC Nucleated RBC % (auto) PT 59.3 H INR 4.8 H Sodium Potassium Chloride Carbon Dioxide Anion Gap BUN Creatinine Estim Creat Clear Calc Estimated GFR POC Glucose 352 H* 385 H* Fasting Glucose Calcium 01/19/22 01/19/22 01/19/22 05:24 05:24 05:24 WBC 6.3 RBC 2.94 L Hgb 8.3 L Hct 25.6 L MCV 87.1 MCH 28.2 MCHC 32.4 RDW 13.3 Plt Count 395 MPV 10.4 Absolute Nucleated RBC 0.000 Nucleated RBC % (auto) 0.0 PT INR Sodium 130 L Potassium 4.3 Chloride 102 Carbon Dioxide 19 L Anion Gap 13 BUN 74 H Creatinine 2.96 H Estim Creat Clear Calc 24.8 Estimated GFR 22 POC Glucose 325 H Fasting Glucose 346 H D Calcium 8.4 01/19/22 01/19/22 01/19/22 07:24 10:47 16:42 WBC RBC Hgb Hct MCV MCH MCHC RDW Plt Count MPV Absolute Nucleated RBC Nucleated RBC % (auto) PT INR Sodium Potassium Chloride Carbon Dioxide Anion Gap BUN Creatinine Estim Creat Clear Calc Estimated GFR POC Glucose 347 H 406 H* 199 H Fasting Glucose Calcium 01/19/22 19:33 WBC RBC Hgb Hct MCV MCH MCHC RDW Plt Count MPV Absolute Nucleated RBC Nucleated RBC % (auto) PT INR Sodium Potassium Chloride Carbon Dioxide Anion Gap BUN Creatinine Estim Creat Clear Calc Estimated GFR POC Glucose 246 H Fasting Glucose Calcium Procedures Date of Service Date of Service: 01/19/22 Assessment & Plan Assessment and plan (1) Acute on chronic kidney failure: Status: Acute (2) Syncope: Status: Acute Plan 56M presented JEWEL - Due to prerenal state CKD 4 s/p Renal transplant Admitted with with syncope Hyponatremia in the setting of Hyperglycemia Continue hydration Continue holding ARB - CAn restart before d/c 50 % dose Keep pt hydrated Continue MMF and [place] Tacro level pending Lasix on hold for now Thx D/w Medical team possible hypoglycemic event as patient has DM and has been having labile sugars with both hyperglycemia and hyoglycemia Time Spent With Patient Time: Total time spent is greater than 50% in coordination of care (as documented) at patient's floor/unit and/or counseling patient: Progress Note: Quality Stroke Does the patient have a stroke diagnosis?: No
[2022-01-19 23:30] VITALS: BP 122/67; PULSE 73; RESP 16; TEMP 36.1; O2SAT 99
[2022-01-20 03:20] VITALS: BP 140/65; PULSE 75; RESP 16; TEMP 36; O2SAT 97
[2022-01-20] MEDS: Levothyroxine Sodium 75 MCG TABLET PO (05:35)
[2022-01-20 06:42] LABS: Hematocrit 29.4 % (42.0-52.0); Hemoglobin 9.4 g/dl (14.0-18.0); Mean Corpuscular Hemoglobin 28.6 pg (27.0-33.0); Mean Corpuscular Volume 89.4 fL (80.0-98.0); Mean Platelet Volume 10.6 fL (9.4-12.4); Platelet Count 434 X10*3/uL (160-400); Red Blood Count 3.29 X10*6/uL (4.60-5.80); Red Cell Distribution Width 13.3 % (11.0-16.0)
[2022-01-20 07:19] LABS: Prothrombin Time 67.5 SEC (10.0-13.1)
[2022-01-20 07:20] LABS: Anion Gap 17 (12-20); Blood Urea Nitrogen 66 mg/dL (9-16); Calcium 8.7 mg/dL (8.4-10.2); Carbon Dioxide 18 mmol/L (22-29); Chloride 102 mmol/L (96-108); Creatinine Clr Calc Pharmacy 26.5; Estimated Glomerular Filt Rate 24; Glucose Fasting 460 mg/dL (60-99); Potassium 5.4 mmol/L (3.3-5.1); Sodium 132 mmol/L (135-145)
[2022-01-20 07:31] LABS: Glucose, Whole Blood 443 mg/dL (60-115)
[2022-01-20 07:35] VITALS: BP 130/60; PULSE 78; RESP 14; TEMP 36.6; O2SAT 98
[2022-01-20] MEDS: Insulin Lispro 100 UNIT/ML 3 ML VIAL SUBCUT ×2 (07:47→11:56)
[2022-01-20 07:53] LABS: INTERNATIONAL NORM RATIO 5.5 (0.9-1.1)
[2022-01-20] MEDS: carvediloL 12.5 MG TABLET PO ×2 (07:54→21:03)
[2022-01-20] MEDS: levETIRAcetam 500 MG TABLET PO ×2 (07:54→21:04)
[2022-01-20] MEDS: Aspirin Enteric Coated 81 MG TABLET.DR PO (07:54)
[2022-01-20] MEDS: Tacrolimus 1 MG CAPSULE 2 MG PO ×2 (07:54→21:04)
[2022-01-20] MEDS: Mycophenolate Sodium 180 MG TABLET.DR 540 MG PO ×2 (07:55→21:02)
--- NOTE | 2022-01-20 09:56 | HO.PM.IMPN ---
Subjective Subjective Date of Service: 01/20/22 Interval History: cc: syncope interval history: no complaints Cardiovascular Cardiovascular: Reports no additional cardiovascular complaints Respiratory Respiratory: Reports no additional respiratory complaints Physical Exam Vital Signs: Vital Signs: Last Vital Signs Temp 97.9 F 01/20/22 07:35 Pulse 78 01/20/22 07:35 Resp 14 01/20/22 07:35 BP 130/60 01/20/22 07:35 Pulse Ox 98 01/20/22 07:35 O2 Del Method 01/20/22 07:35 BMI result Body Mass Index 25.8 General: Alert, no acute distress Resp: CTA bilateral, no accessory muscles used CVS: S1,S2,RRR GI: soft, non tender, non distended Neuro: motor grossly intact, alert Psych: appropriate affect, impaired insight Objective Data Active Medications Acetaminophen (Acetaminophen 325 Mg Tablet) 650 mg PO Q6H PRN PRN Reason: Pain, Mild (Pain Scale 1-3) Aspirin (Aspirin Enteric Coated 81 Mg Tablet.) 81 mg PO DAILY [facility] Last Admin: 01/20/22 07:54 Dose: 81 mg Documented By: ESPERANZA Atorvastatin Calcium (Atorvastatin Calcium 40 Mg Tablet) 40 mg PO BEDTIME [facility] Last Admin: 01/19/22 20:46 Dose: 40 mg Documented By: KARLA Carvedilol (Carvedilol 12.5 Mg Tablet) 12.5 mg PO BID [facility]; Protocol Last Admin: 01/20/22 07:54 Dose: 12.5 mg Documented By: ESPERANZA Dextrose (Dextrose 50 % 25 Gm/50 Ml Syringe) 25 gm IVPUSH Q15M PRN; Protocol PRN Reason: per Hypoglycemia Standing Ord. Last Admin: 01/18/22 08:57 Dose: 25 gm Documented By: JORGITO Glucose (Glucose Gel 15 Gm Gel..Gram.) 15 gm PO Q15M PRN; Protocol PRN Reason: per Hypoglycemia Standing Ord. Sodium Chloride (Ns) 1,000 mls @ 75 mls/hr IVCONT .[id number] [facility] Last Admin: 01/19/22 21:58 Dose: Not Given Documented By: KARLA Non-Admin Reason: pt refused , has no iv access md aware Insulin Glargine (Insulin Glargine,Hum.Rec.Anlog 100 Unit/Ml 10 Ml Vial) 18 unit SUBCUT BEDTIME [facility] Insulin Human Lispro (Insulin Lispro 100 Unit/Ml 3 Ml Vial) 0 unit SUBCUT QIDACHS [facility]; Protocol Last Admin: 01/20/22 07:47 Dose: 10 unit Documented By: ESPERANZA Levetiracetam (Levetiracetam 500 Mg Tablet) 500 mg PO BID [facility] Last Admin: 01/20/22 07:54 Dose: 500 mg Documented By: ESPERANZA Levothyroxine Sodium (Levothyroxine Sodium 75 Mcg Tablet) 75 mcg PO DAILY@0600 [facility] Last Admin: 01/20/22 05:35 Dose: 75 mcg Documented By: KARLA Mycophenolate Sodium (Mycophenolate Sodium 180 Mg Tablet.) 540 mg PO BID [facility] Last Admin: 01/20/22 07:55 Dose: 540 mg Documented By: ESPERANZA Pharmacy Consult (Consult Rx Perform Med Rec) 1 each MISCELLANE ONCE PRN PRN Reason: Consult order Sodium Chloride (0.9 % Sodium Chloride Flush 3 Ml Syringe) 3 ml IVFLUSH QSHIFT [facility] Last Admin: 01/20/22 07:57 Dose: Not Given Documented By: ESPERANZA Non-Admin Reason: No Insulin Coverage Tacrolimus (Tacrolimus 1 Mg Capsule) 2 mg PO BID [facility] Last Admin: 01/20/22 07:54 Dose: 2 mg Documented By: ESPERANZA Warfarin Sodium (Warfarin Sodium 3 Mg Tablet) 3 mg PO DAILY@1800 [facility] Last Admin: 01/18/22 17:03 Dose: 3 mg Documented By: JORGITO Labs CBC & Chem 7: 01/20/22 05:53 01/20/22 05:53 Labs: Laboratory Results - last 24 hr 01/19/22 01/19/22 01/19/22 10:47 16:42 19:33 MCV MCH MCHC RDW Plt Count MPV Absolute Nucleated RBC Nucleated RBC % (auto) PT INR Anion Gap Estim Creat Clear Calc Estimated GFR POC Glucose 406 H* 199 H 246 H Fasting Glucose Calcium 01/20/22 01/20/22 01/20/22 05:53 05:53 05:53 MCV 89.4 MCH 28.6 MCHC 32.0 RDW 13.3 Plt Count 434 H MPV 10.6 Absolute Nucleated RBC 0.000 Nucleated RBC % (auto) 0.0 PT 67.5 H INR 5.5 H* Anion Gap 17 Estim Creat Clear Calc 26.5 Estimated GFR 24 POC Glucose Fasting Glucose 460 H* Calcium 8.7 01/20/22 07:13 MCV MCH MCHC RDW Plt Count MPV Absolute Nucleated RBC Nucleated RBC % (auto) PT INR Anion Gap Estim Creat Clear Calc Estimated GFR POC Glucose 443 H* Fasting Glucose Calcium Assessment and Plan (1) Syncope: Status: Acute Plan 56M presented with syncope syncope suspect dehydration related to hot weather, diuretics, antihypertensives vs vasovagal holding lasix, hydralazine, improved possible hypoglycemic event as patient has DM and has been having labile sugars with both hyperglycemia and hyoglycemia more hyperglycemic now, will restart regular basal bolus insulin johana on CKD IV in renal transplant patient ivf, monitor bmp, nephro eval, antirejection meds improving 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
[2022-01-20 11:23] VITALS: BP 139/62; PULSE 72; RESP 16; TEMP 36.2; O2SAT 99
[2022-01-20 11:23] LABS: Glucose, Whole Blood 358 mg/dL (60-115)
[2022-01-20] MEDS: Phytonadione (Vit K1) Oral 10 MG/ML AMPUL 2.5 MG PO (11:55)
[2022-01-20] MEDS: Insulin Glargine,Hum.rec.anlog 100 UNIT/ML 10 ML VIAL 10 UNIT SUBCUT ×2 (11:56→21:05)
--- NOTE | 2022-01-20 14:27 | MHC.CM.PN ---
PER MD ROUNDS, PT NOT READY TO DC TODAY. GIULIA LOVE IS WORKING ON AUTH
[2022-01-20 15:42] VITALS: BP 126/73; PULSE 65; RESP 17; TEMP 36.4; O2SAT 100
--- NOTE | 2022-01-20 15:54 | PM.PNNEP ---
Subjective Subjective Date of Service: 01/20/22 Interval history: Seen and examined, events noted Physical Exam Vital Signs: Vital Signs: Last Vital Signs Temp 97.5 F 01/20/22 15:42 Pulse 65 01/20/22 15:42 Resp 17 01/20/22 15:42 BP 126/73 01/20/22 15:42 Pulse Ox 100 01/20/22 15:42 O2 Del Method 01/20/22 15:42 BMI result Body Mass Index 25.8 Const: General: alert Orientation/consciousness: oriented to person and oriented to place Limitations: altered mental status (mild confusion, speech difficulty) and language barrier HEENT: Head: Yes normal to inspection, No Hinson's sign and No raccoon eyes Ears: hearing grossly normal bilaterally and TM's normal bilaterally General nose exam: Normal external nose present Face and sinus: Yes normal facial exam Mouth: Normal oral and palatal mucosa present Throat: Yes posterior oropharynx normal Eyes: General: appearance normal, both eyes and all related structures Pupils: Equal, round and reactive pupils present Neck: Neck: Yes normal visual inspection, Yes full ROM, Yes no lymphadenopathy and Yes no meningeal signs Chest: Chest palpation & inspection: normal inspection of the chest Resp: Effort & Inspection: normal respiratory effort Auscultation: clear to auscultation bilaterally Cardio: Rate: regular rate Rhythm: regular rhythm Peripheral pulses: Peripheral pulses 2+ throughout GI: Inspection: Yes normal to inspection Palpation (GI): Soft to palpation and nontender Auscultation: normal bowel sounds Back/Spine/Pelvis: Thoracic/Lumbar Spine: thoracic and lumbar spine normal to inspection Skin: General skin exam: no rashes or lesions noted Neuro: General: oriented to person, oriented to place, moves all extremities, no meningeal signs, no focal motor deficits, normal sensation to monofilament and Unable to assess gait Cranial nerves: Yes Equal, round and reactive pupils present and Yes Midline tongue present Speech: No Abnormal speech present Gait exam (Neuro): Unable to assess gait Sensory Exam: Normal double simultaneous stimulation for sensation Extrem: General: Yes normal to inspection Objective Data Labs CBC & Chem 7: 01/20/22 05:53 01/20/22 05:53 Labs: Laboratory Results - last 24 hr 01/19/22 01/19/22 01/20/22 16:42 19:33 05:53 WBC RBC Hgb Hct MCV MCH MCHC RDW Plt Count MPV Absolute Nucleated RBC Nucleated RBC % (auto) PT 67.5 H INR 5.5 H* Sodium Potassium Chloride Carbon Dioxide Anion Gap BUN Creatinine Estim Creat Clear Calc Estimated GFR POC Glucose 199 H 246 H Fasting Glucose Calcium 01/20/22 01/20/22 01/20/22 05:53 05:53 07:13 WBC 6.0 RBC 3.29 L Hgb 9.4 L Hct 29.4 L MCV 89.4 MCH 28.6 MCHC 32.0 RDW 13.3 Plt Count 434 H MPV 10.6 Absolute Nucleated RBC 0.000 Nucleated RBC % (auto) 0.0 PT INR Sodium 132 L Potassium 5.4 H D Chloride 102 Carbon Dioxide 18 L Anion Gap 17 BUN 66 H Creatinine 2.77 H Estim Creat Clear Calc 26.5 Estimated GFR 24 POC Glucose 443 H* Fasting Glucose 460 H* Calcium 8.7 01/20/22 11:04 WBC RBC Hgb Hct MCV MCH MCHC RDW Plt Count MPV Absolute Nucleated RBC Nucleated RBC % (auto) PT INR Sodium Potassium Chloride Carbon Dioxide Anion Gap BUN Creatinine Estim Creat Clear Calc Estimated GFR POC Glucose 358 H* Fasting Glucose Calcium Procedures Date of Service Date of Service: 01/20/22 Assessment & Plan Assessment and plan (1) Acute on chronic kidney failure: Status: Acute (2) Syncope: Status: Acute Plan 1. JEWEL: rsolved with Peak SCr 3.3 now back to BSL 2. CKD 4: BSL SCr 2.5-3.0 3. ESRD s/p Xplant: maintained on prograft 4. HyperK 5. DM 6. MBD of CKD: check PTH, Phios and suppl to maintain HCO3 > 24 REC:repeat renal labs and K level; may need low K diet vs K binder if K remains elevated; d/c planning; needs close outpt f/u re: prep for [employer] ( HD) and management of CKD issues: MBD, Ameima K etc.. Time Spent With Patient Time: Total time spent is greater than 50% in coordination of care (as documented) at patient's floor/unit and/or counseling patient: Progress Note: Quality Stroke Does the patient have a stroke diagnosis?: No
[2022-01-20 16:07] LABS: Glucose, Whole Blood 40 mg/dL (60-115)
[2022-01-20 16:32] LABS: Glucose, Whole Blood 82 mg/dL (60-115)
[2022-01-20 19:36] VITALS: BP 143/66; PULSE 89; RESP 16; TEMP 36.9; O2SAT 99
[2022-01-20 20:29] LABS: Glucose, Whole Blood 97 mg/dL (60-115)
[2022-01-20] MEDS: Sodium Bicarbonate 650 MG TABLET PO (21:03)
[2022-01-20] MEDS: Atorvastatin Calcium 40 MG TABLET PO (21:04)
[2022-01-21] VITALS: BP 125/60; RESP 18; TEMP 36.2; O2SAT 98
[2022-01-21 04:00] VITALS: BP 128/65; PULSE 78; RESP 18; TEMP 36.4; O2SAT 98
[2022-01-21 05:47] LABS: Hematocrit 27.9 % (42.0-52.0); Mean Corpuscular HGB Conc 32.3 g/dl (31.0-36.0); Mean Corpuscular Hemoglobin 28.3 pg (27.0-33.0); Mean Corpuscular Volume 87.7 fL (80.0-98.0); Mean Platelet Volume 10.1 fL (9.4-12.4); Platelet Count 387 X10*3/uL (160-400); Red Blood Count 3.18 X10*6/uL (4.60-5.80); Red Cell Distribution Width 13.2 % (11.0-16.0); White Blood Count 5.3 X10*3/uL (4.8-10.8)
[2022-01-21 06:04] LABS: INTERNATIONAL NORM RATIO 1.5 (0.9-1.1)
[2022-01-21] MEDS: Levothyroxine Sodium 75 MCG TABLET PO (06:18)
[2022-01-21 06:27] LABS: Anion Gap 12 (12-20); Blood Urea Nitrogen 58 mg/dL (9-16); Calcium 8.9 mg/dL (8.4-10.2); Carbon Dioxide 25 mmol/L (22-29); Chloride 106 mmol/L (96-108); Creatinine Clr Calc Pharmacy 30.1; Estimated Glomerular Filt Rate 28; Glucose Fasting 197 mg/dL (60-99); Potassium 4.6 mmol/L (3.3-5.1); Sodium 138 mmol/L (135-145)
[2022-01-21 07:12] LABS: Glucose, Whole Blood 158 mg/dL (60-115)
[2022-01-21 07:36] VITALS: BP 138/70; PULSE 70; RESP 16; TEMP 36.1; O2SAT 98
[2022-01-21] MEDS: Insulin Lispro 100 UNIT/ML 3 ML VIAL SUBCUT (07:56)
[2022-01-21] MEDS: Tacrolimus 1 MG CAPSULE 2 MG PO (07:58)
[2022-01-21] MEDS: levETIRAcetam 500 MG TABLET PO (07:58)
[2022-01-21] MEDS: Sodium Bicarbonate 650 MG TABLET PO (07:58)
[2022-01-21] MEDS: Mycophenolate Sodium 180 MG TABLET.DR 540 MG PO (07:58)
[2022-01-21] MEDS: carvediloL 12.5 MG TABLET PO (07:58)
[2022-01-21] MEDS: Aspirin Enteric Coated 81 MG TABLET.DR PO (07:58)
--- NOTE | 2022-01-21 10:42 | P.PNNP_ITS ---
Subjective Subjective Date of Service: 01/21/22 Interval history: Seen and examined, events noted Physical Exam Vital Signs: Vital Signs: Last Vital Signs Temp 97.0 F 01/21/22 07:36 Pulse 70 01/21/22 07:36 Resp 16 01/21/22 07:36 BP 138/70 01/21/22 07:36 Pulse Ox 98 01/21/22 07:36 O2 Del Method 01/21/22 07:36 BMI result Body Mass Index 25.8 Const: General: alert Orientation/consciousness: oriented to person and oriented to place Limitations: altered mental status (mild confusion, speech difficulty) and language barrier HEENT: Head: Yes normal to inspection, No Hinson's sign and No raccoon eyes Ears: hearing grossly normal bilaterally and TM's normal bilaterally General nose exam: Normal external nose present Face and sinus: Yes normal facial exam Mouth: Normal oral and palatal mucosa present Throat: Yes posterior oropharynx normal Eyes: General: appearance normal, both eyes and all related structures Pup ils: Equal, round and reactive pupils present Neck: Neck: Yes normal visual inspection, Yes full ROM, Yes no lymphadenopathy and Yes no meningeal signs Chest: Chest palpation & inspection: normal inspection of the chest Resp: Effort & Inspection: normal respiratory effort Auscultation: clear to auscultation bilaterally Cardio: Rate: regular rate Rhythm: regular rhythm Peripheral pulses: P eripheral pulses 2+ throughout GI: Inspection: Yes normal to inspection Palpation (GI): Soft to palpation and nontender Auscultation: normal bowel sounds Back/Spine/Pelvis: Thoracic/Lumbar Spine: thoracic and lumbar spine normal to inspection Skin: General skin exam: no rashes or lesions noted Neuro: General: oriented to person, oriented to place, moves all extremities, no meningeal signs, no focal motor deficits, normal sensation to monofilament and Unable to assess gait Cranial nerves: Yes Equal, round and reactive pupils present and Yes Midline tongue present Speech: No Abnormal speech present Gait exam (Neuro): Unable to assess gait Sensory Exam: Normal double simultaneous stimulation for sensation Extrem: General: Yes normal to inspection Objective Data Labs CBC & Chem 7: 01/21/22 05:08 01/21/22 05:08 Labs: Laboratory Results - last 24 hr 01/20/22 01/20/22 01/20/22 11:04 15:40 16:27 WBC RBC Hgb Hct MCV MCH MCHC RDW Plt Count MPV Absolute Nucleated RBC Nucleated RBC % (auto) PT INR Sodium Potassium Chloride Carbon Dioxide Anion Gap BUN Creatinine Estim Creat Clear Calc Estimated GFR POC Glucose 358 H* 40 L* 82 Fasting Glucose Calcium 01/20/22 01/21/22 01/21/22 20:17 05:08 05:08 WBC 5.3 RBC 3.18 L Hgb 9.0 L Hct 27.9 L MCV 87.7 MCH 28.3 MCHC 32.3 RDW 13.2 Plt Count 387 MPV 10.1 Absolute Nucleated RBC 0.000 Nucleated RBC % (auto) 0.0 PT 17.0 H INR 1.5 H D Sodium Potassium Chloride Carbon Dioxide Anion Gap BUN Creatinine Estim Creat Clear Calc Estimated GFR POC Glucose 97 Fasting Glucose Calcium 01/21/22 01/21/22 05:08 07:03 WBC RBC Hgb Hct MCV MCH MCHC RDW Plt Count MPV Absolute Nucleated RBC Nucleated RBC % (auto) PT INR Sodium 138 Potassium 4.6 Chloride 106 Carbon Dioxide 25 Anion Gap 12 BUN 58 H Creatinine 2.44 H Estim Creat Clear Calc 30.1 Estimated GFR 28 POC Glucose 158 H Fasting Glucose 197 H D Calcium 8.9 Procedures Date of Service Date of Service: 01/21/22 Assessment & Plan Assessment and plan (1) Acute on chronic kidney failure: Status: Acute (2) Syncope: Status: Acute Plan 1. JEWEL: rsolved with Peak SCr 3.3 now back to BSL 2. CKD 4: BSL SCr 2.5-3.0 3. ESRD s/p Xplant: maintained on prograft 4. HyperK 5. DM 6. MBD of CKD: check PTH, Phios and suppl to maintain HCO3 > 24 REC: no change in meds; will need close outpt renal f/u for CKD, anemia, MBD and IS ( I ely arrange ) Time Spent With Patient Time: Total time spent is greater than 50% in coordination of care (as documented) at patient's floor/unit and/or counseling patient: Progress Note: Quality Stroke Does the patient have a stroke diagnosis?: No
--- NOTE | 2022-01-21 11:05 | MHC.CM.PN ---
PT MEDICALLY CLEARED FOR D/C BACK TO [facility]
[2022-01-21 11:12] LABS: Glucose, Whole Blood 136 mg/dL (60-115)
[2022-01-22 16:02] LABS: Levetiracetam Keppra 39.7 mcg/mL (6.0-46.0)
== END 2022-01-21 13:07 | disposition skilled nursing facility (03) | DRG 469 ==
LOC: HO.ED 14:42 → HO.EDOVER 15:01 → HO.S3 21:15
PROVIDERS: Nurse Practitioner Family; Admitting Provider Internal Medicine; Emergency Provider Emergency Medicine Emergency Medical Services; PCP Internal Medicine; Visit Provider Internal Medicine
DX: N17.9 Acute kidney failure, unspecified (principal); I13.0 Hypertensive heart and chronic kidney disease with heart failure and stage 1 through stage 4 chronic kidney disease, or unspecified chronic kidney disease; I50.32 Chronic diastolic (congestive) heart failure; E10.22 Type 1 diabetes mellitus with diabetic chronic kidney disease; Z66 Do not resuscitate; E86.0 Dehydration; F17.210 Nicotine dependence, cigarettes, uncomplicated; G40.909 Epilepsy, unspecified, not intractable, without status epilepticus; N25.0 Renal osteodystrophy; E87.5 Hyperkalemia; Z71.6 Tobacco abuse counseling; N18.4 Chronic kidney disease, stage 4 (severe); F80.2 Mixed receptive-expressive language disorder; E10.65 Type 1 diabetes mellitus with hyperglycemia; Z20.822 Contact with and (suspected) exposure to COVID-19; Z94.0 Kidney transplant status; Z86.73 Personal history of transient ischemic attack (TIA), and cerebral infarction without residual deficits; Z79.01 Long term (current) use of anticoagulants; Z79.82 Long term (current) use of aspirin; Z79.890 Hormone replacement therapy; Z79.899 Other long term (current) drug therapy
CPT/HCPCS: 36415; 70450; 71046; 80048; 80076; 80177; 81003; 82947; 83605; 84484; 85025; 85027; 85610; 87635; 93005; 96361; 96374; 99285; J3360; Q0163